=== PATIENT | male | born 1965 | race African-American/Black ===

== ENCOUNTER 2017-02-06 17:12 | Emergency (ER) | payer OTHER ==
[~2017-02-06] VITALS: Ht 177.8 cm; Wt 165.6 kg
[~2017-02-06 17:12] MED LIST: FURO40TA PO; METF-370 PO
[2017-02-06 18:39] LABS: Basophils # (auto) 0 uL; Basophils % (auto) 0.5 % (0.0-2.0); CONDITION Y; Eosinophils # (auto) 0.2 uL; Eosinophils % (auto) 2.5 % (0.0-7.0); Hematocrit 42.4 % (41.0-53.0); Hemoglobin 13.8 g/dL (13.5-17.5); Lymphocytes # (auto) 2.3 uL; Lymphocytes % (auto) 28.5 % (10.0-50.0); Mean Corpuscular Hemoglobin 28.5 pg (28.0-32.0); Mean Corpuscular Hgb Conc. 32.5 g/dL (32.0-36.0); Mean Corpuscular Volume 87.5 fL (80.0-100.0); Mean Platelet Volume 9.8 fL (7.4-10.4); Monocytes # (auto) 0.7 uL; Monocytes % (auto) 8.5 % (0.0-12.0); Neutrophils # (auto) 4.9 uL; Platelet Count (auto) 263 10^3/uL (140-450); Red Cell Distribution Width 16.4 % (11.6-16.0); White Blood Cell 8.1 10^3/uL (4.4-10.8)
[2017-02-06 19:08] LABS: Albumin 3.3 g/dL (3.4-5.0); BUN/Creatinine Ratio 13.2; Bilirubin, Total 0.4 mg/dL (0.2-1.0); Calcium 8.7 mg/dL (8.5-10.1); Potassium 3.9 mmol/L (3.5-5.1); Total Protein 7.5 g/dL (6.4-8.2)
[2017-02-06 22:03] LABS: Urine Bilirubin Negative (Negative); Urine Blood TRACE /uL (Negative); Urine Color Yellow (Yellow); Urine Glucose Normal (Normal); Urine Ketone Negative (Negative); Urine Mucus FEW (None Seen); Urine Nitrite Negative (Negative); Urine RBC 1 /hpf (0 - 3); Urine Urobilinogen Normal (Negative); Urine pH 5.5 (5.0-8.0)
[2017-02-07] MEDS ORDERED: cloNIDine HCL 0.1 MG TAB PO ONE (00:30)
[2017-02-07] MEDS ORDERED: ASPirin 81 mg TAB PO ONE (03:30)
[2017-02-07 03:45] VITALS: BP 148/79
[2017-02-07 04:10] LABS: B-Type Natriuretic Peptide 702.03 pg/mL (0-100)
[2017-02-07 04:27] LABS: Temperature: 23.3 C (20.0-25.0)
== END 2017-02-07 04:13 | disposition left against medical advice (07) ==
LOC: ER 17:27
DX: J44.1 Chronic obstructive pulmonary disease with (acute) exacerbation (principal); R07.9 Chest pain, unspecified; I10 Essential (primary) hypertension; E11.9 Type 2 diabetes mellitus without complications; J45.909 Unspecified asthma, uncomplicated; E78.5 Hyperlipidemia, unspecified; R79.89 Other specified abnormal findings of blood chemistry; R51 Headache; R60.0 Localized edema
CPT/HCPCS: 36415; 70450; 71010; 80053; 80307; 81001; 83880; 84484; 85025; 93005

== ENCOUNTER 2017-07-03 17:48 | Inpatient (IN) | payer OTHER ==
[~2017-07-03] VITALS: Ht 175.3 cm; Wt 154.8 kg
[2017-07-03 19:11] LABS: Basophils # (auto) 0.1 uL; Basophils % (auto) 1.3 % (0.0-2.0); Eosinophils # (auto) 0.2 uL; Eosinophils % (auto) 1.7 % (0.0-7.0); Hematocrit 41.1 % (41.0-53.0); Hemoglobin 13.4 g/dL (13.5-17.5); Lymphocytes # (auto) 2.1 uL; Mean Corpuscular Hemoglobin 28.4 pg (28.0-32.0); Mean Corpuscular Hgb Conc. 32.7 g/dL (32.0-36.0); Mean Corpuscular Volume 87.1 fL (80.0-100.0); Monocytes # (auto) 0.8 uL; Monocytes % (auto) 7.5 % (0.0-12.0); Neutrophils # (auto) 7.6 uL; Neutrophils % (auto) 70.5 % (37.0-80.0); Platelet Count (auto) 243 10^3/uL (140-450); Red Blood Cells 4.72 10^6/uL (4.5-5.90); Red Cell Distribution Width 15.8 % (11.8-14.3); White Blood Cell 10.8 10^3/uL (4.4-10.8)
[2017-07-03 19:27] LABS: Albumin 3.4 g/dL (3.4-5.0); Calcium 8.9 mg/dL (8.5-10.1)
[2017-07-03 19:34] LABS: BUN/Creatinine Ratio 12.9; Bilirubin, Total 0.8 mg/dL (0.2-1.0); Total Protein 7.8 g/dL (6.4-8.2)
[2017-07-03 19:43] LABS: Potassium 3.5 mmol/L (3.5-5.1)
[2017-07-03] MEDS ORDERED: ALBUTEROL SULF 2.5 MG/0.5ML(0.5%) NEB SOLN HHN ONE (22:00)
[2017-07-03] MEDS ORDERED: IPRATROPIUM BROM 0.5 MG/2.5ML INH SOL HHN ONE (22:00)
[2017-07-04] MEDS ORDERED: cloNIDine HCL 0.1 MG TAB PO ONE (00:45)
[2017-07-04] MEDS ORDERED: FUROSEMIDE 20 MG/2 ML VIAL IV ONE (01:15)
[2017-07-04] MEDS ORDERED: HYDROcodone-ACET 5/325MG TAB PO PRN (04:45)
[2017-07-04] MEDS ORDERED: NITROGLYCERIN 0.4 MG SL TAB SL PRN (04:45)
[2017-07-04] MEDS ORDERED: MORPHINE SULF INJ 2 MG/ML SYRINGE 1ML IV PRN (04:45)
[2017-07-04] MEDS ORDERED: ACETAMINOPHEN 500 MG TAB PO PRN (04:45)
[2017-07-04] MEDS ORDERED: ONDANSETRON HCL 4 MG/2 ML VIAL IV PRN (04:45)
[2017-07-04] MEDS ORDERED: DEXTROSE (50%) 50ML SYRG IV PRN (05:00)
[2017-07-04 05:55] LABS: Basophils # (auto) 0.1 uL; Basophils % (auto) 0.7 % (0.0-2.0); Eosinophils # (auto) 0.2 uL; Eosinophils % (auto) 2.7 % (0.0-7.0); Hematocrit 39.6 % (41.0-53.0); Lymphocytes # (auto) 1.6 uL; Mean Corpuscular Hemoglobin 28.9 pg (28.0-32.0); Mean Corpuscular Hgb Conc. 32.9 g/dL (32.0-36.0); Mean Corpuscular Volume 87.6 fL (80.0-100.0); Monocytes # (auto) 0.9 uL; Monocytes % (auto) 10.5 % (0.0-12.0); Neutrophils # (auto) 5.4 uL; Neutrophils % (auto) 66.1 % (37.0-80.0); Nucleated Red Blood Cells % 0.1 %; Platelet Count (auto) 217 10^3/uL (140-450); Red Blood Cells 4.52 10^6/uL (4.5-5.90); Red Cell Distribution Width 15.3 % (11.8-14.3); White Blood Cell 8.1 10^3/uL (4.4-10.8)
[2017-07-04 06:20] LABS: Calcium 8.6 mg/dL (8.5-10.1); Potassium 3.3 mmol/L (3.5-5.1)
[2017-07-04 06:37] LABS: Cholesterol 149 mg/dL (< 200); HDL Cholesterol 32 mg/dL (40-59); LDL Cholesterol 114 mg/dL (< 100); Triglycerides 57 mg/dL (< 150)
[2017-07-04] MEDS: InsuLIN REG 1unit/0.01ml Soln (100units/ml) SC SCH ×4 (07:14→22:04)
[2017-07-04] MEDS: ACCU-CHEK COMFORT CURVE STRIP VI SCH ×4 (07:14→22:04)
[2017-07-04] MEDS ORDERED: METOPROLOL TARTRATE 50 MG TAB PO SCH (10:00)
[2017-07-04] MEDS ORDERED: FUROSEMIDE 40 MG/4 ML VIAL IV SCH (10:00)
[2017-07-04] MEDS: ASPirin-EC 81 mg tab PO SCH (10:23)
[2017-07-04] MEDS ORDERED: cefTRIAXone 1GM/10ml IVPUSH 10 ML IV ONE (10:30)
[2017-07-04] MEDS ORDERED: OPTISON 3ml Vial for INJ IV ONE (10:55)
[2017-07-04] MEDS: POTASSIUM CHL 20 Meq TABLET PO SCH ×2 (11:53→22:02)
[2017-07-04] MEDS ORDERED: POTASSIUM CHL 20 Meq TABLET PO ONE (12:30)
[2017-07-04] MEDS: CARVEDILOL 3.125 MG TAB PO SCH ×2 (14:47→22:03)
[2017-07-04] MEDS ORDERED: FUROSEMIDE 40 MG/4 ML VIAL IV ONE (16:00)
[2017-07-04 22:00] VITALS: BP 138/91
[2017-07-04] MEDS ORDERED: ATORVASTATIN 20 MG TAB PO SCH (22:00)
[2017-07-04] MEDS: ATORVASTATIN 20 MG TAB PO SCH (22:03)
[2017-07-04 23:30] VITALS: BP 138/91
[2017-07-05 04:20] VITALS: BP 143/100
[2017-07-05 05:00] VITALS: BP 132/99
[2017-07-05] MEDS: FUROSEMIDE 40 MG/4 ML VIAL IV SCH ×2 (06:04→17:40)
[2017-07-05] MEDS: ACCU-CHEK COMFORT CURVE STRIP VI SCH ×4 (06:15→21:50)
[2017-07-05] MEDS: InsuLIN REG 1unit/0.01ml Soln (100units/ml) SC SCH ×4 (06:15→21:50)
[2017-07-05 06:18] LABS: Basophils # (auto) 0.1 uL; Basophils % (auto) 0.9 % (0.0-2.0); Eosinophils # (auto) 0.3 uL; Eosinophils % (auto) 3.7 % (0.0-7.0); Hematocrit 40.4 % (41.0-53.0); Hemoglobin 13.1 g/dL (13.5-17.5); Lymphocytes # (auto) 1.8 uL; Lymphocytes % (auto) 25.8 % (10.0-50.0); Mean Corpuscular Hemoglobin 28.6 pg (28.0-32.0); Mean Corpuscular Hgb Conc. 32.5 g/dL (32.0-36.0); Mean Corpuscular Volume 87.9 fL (80.0-100.0); Monocytes # (auto) 0.8 uL; Monocytes % (auto) 11.9 % (0.0-12.0); Neutrophils % (auto) 57.7 % (37.0-80.0); Platelet Count (auto) 219 10^3/uL (140-450); Red Cell Distribution Width 15.8 % (11.8-14.3); White Blood Cell 6.9 10^3/uL (4.4-10.8)
[2017-07-05 06:48] LABS: Albumin 3.2 g/dL (3.4-5.0); BUN/Creatinine Ratio 16.3; Bilirubin, Total 0.8 mg/dL (0.2-1.0); Calcium 8.4 mg/dL (8.5-10.1); Potassium 3.8 mmol/L (3.5-5.1); Total Protein 7.3 g/dL (6.4-8.2)
[2017-07-05] MEDS: cefTRIAXone 1GM/10ml IVPUSH 10 ML IV SCH (08:30)
[2017-07-05 09:00] VITALS: BP 151/86
[2017-07-05] MEDS: CARVEDILOL 3.125 MG TAB PO SCH ×2 (09:48→21:49)
[2017-07-05] MEDS: POTASSIUM CHL 20 Meq TABLET PO SCH ×2 (09:48→21:48)
[2017-07-05] MEDS: SPIRONOLACTONE 25 MG TAB PO SCH (09:48)
[2017-07-05] MEDS: ENALAPRIL MALEATE 2.5 MG TAB PO SCH (09:49)
[2017-07-05] MEDS: ASPirin-EC 81 mg tab PO SCH (09:49)
[2017-07-05 13:00] VITALS: BP 160/98
[2017-07-05 17:00] VITALS: BP 168/89
[2017-07-05 20:52] LABS: Urine WBC None Seen /hpf (0 - 3)
[2017-07-05 21:00] LABS: Urine Bacteria NONE SEEN /hpf (None Seen); Urine Blood Negative /uL (Negative); Urine Specific Gravity 1.008 (1.001-1.035)
[2017-07-05] MEDS: ATORVASTATIN 20 MG TAB PO SCH (21:50)
[2017-07-05 22:00] VITALS: BP 150/100
[2017-07-06 05:00] VITALS: BP 150/80
[2017-07-06] MEDS: FUROSEMIDE 40 MG/4 ML VIAL IV SCH (05:35)
[2017-07-06 06:35] LABS: BUN/Creatinine Ratio 18.8; Calcium 9.2 mg/dL (8.5-10.1); Potassium 3.8 mmol/L (3.5-5.1)
[2017-07-06] MEDS: ACCU-CHEK COMFORT CURVE STRIP VI SCH ×2 (06:40→11:30)
[2017-07-06] MEDS: InsuLIN REG 1unit/0.01ml Soln (100units/ml) SC SCH ×2 (06:40→11:30)
[2017-07-06] MEDS: cefTRIAXone 1GM/10ml IVPUSH 10 ML IV SCH (08:50)
[2017-07-06 09:00] VITALS: BP 156/102
[2017-07-06] MEDS: CARVEDILOL 3.125 MG TAB PO SCH (10:00)
[2017-07-06] MEDS: POTASSIUM CHL 20 Meq TABLET PO SCH (10:00)
[2017-07-06] MEDS: ASPirin-EC 81 mg tab PO SCH (10:00)
[2017-07-06] MEDS: ENALAPRIL MALEATE 2.5 MG TAB PO SCH (10:00)
[2017-07-06] MEDS: SPIRONOLACTONE 25 MG TAB PO SCH (10:00)
[2017-07-06 10:46] VITALS: BP 145/96
== END 2017-07-06 11:05 | disposition home or self-care (01) | DRG 199 ==
LOC: ER 17:48 → TELE 17:49 → TELE-WESTW 07-04 07:58
PROVIDERS: ADMIT Nurse Practitioner Family; ATTEND Internal Medicine
PROC: 5A09357 Assistance with Respiratory Ventilation, Less than 24 Consecutive Hours, Continuous Positive Airway Pressure (ICD-10-PCS; principal; 2017-07-04)
PROC: 5A09357 Assistance with Respiratory Ventilation, Less than 24 Consecutive Hours, Continuous Positive Airway Pressure (ICD-10-PCS; 2017-07-05)
PROC: 5A09357 Assistance with Respiratory Ventilation, Less than 24 Consecutive Hours, Continuous Positive Airway Pressure (ICD-10-PCS; 2017-07-06)
DX: I16.9 Hypertensive crisis, unspecified (principal); I21.A1 Myocardial infarction type 2; I50.43 Acute on chronic combined systolic (congestive) and diastolic (congestive) heart failure; E44.0 Moderate protein-calorie malnutrition; E11.65 Type 2 diabetes mellitus with hyperglycemia; I27.20 Pulmonary hypertension, unspecified; Z68.43 Body mass index [BMI] 50.0-59.9, adult; J44.1 Chronic obstructive pulmonary disease with (acute) exacerbation; I11.0 Hypertensive heart disease with heart failure; E78.00 Pure hypercholesterolemia, unspecified; E66.01 Morbid (severe) obesity due to excess calories; E78.5 Hyperlipidemia, unspecified; G47.33 Obstructive sleep apnea (adult) (pediatric); Z91.11 Patient's noncompliance with dietary regimen; Z79.899 Other long term (current) drug therapy; Z79.84 Long term (current) use of oral hypoglycemic drugs; Z80.0 Family history of malignant neoplasm of digestive organs; Z82.49 Family history of ischemic heart disease and other diseases of the circulatory system; Z83.3 Family history of diabetes mellitus
CPT/HCPCS: 36415; 71046; 80048; 80053; 80061; 81001; 82962; 83036; 83880; 84443; 84484; 85025; 93005; 93306; 94640; 94660; 96374; J1815; Q9956

== ENCOUNTER 2017-07-24 16:30 | Inpatient (IN) | payer OTHER ==
[~2017-07-24] VITALS: Ht 175.3 cm; Wt 117.9 kg
[2017-07-24 17:49] LABS: Basophils # (auto) 0.1 uL; Basophils % (auto) 0.9 % (0.0-2.0); Eosinophils # (auto) 0.2 uL; Eosinophils % (auto) 2.4 % (0.0-7.0); Hematocrit 39.4 % (41.0-53.0); Hemoglobin 12.7 g/dL (13.5-17.5); Lymphocytes % (auto) 22.6 % (10.0-50.0); Mean Corpuscular Hemoglobin 28.2 pg (28.0-32.0); Mean Corpuscular Hgb Conc. 32.3 g/dL (32.0-36.0); Mean Corpuscular Volume 87.4 fL (80.0-100.0); Monocytes # (auto) 0.7 uL; Monocytes % (auto) 8.5 % (0.0-12.0); Neutrophils # (auto) 5.8 uL; Neutrophils % (auto) 65.6 % (37.0-80.0); Nucleated Red Blood Cells % 0.2 %; Platelet Count (auto) 220 10^3/uL (140-450); Red Blood Cells 4.51 10^6/uL (4.5-5.90); Red Cell Distribution Width 15.6 % (11.8-14.3); White Blood Cell 8.8 10^3/uL (4.4-10.8)
[2017-07-24 18:09] LABS: Albumin 3.2 g/dL (3.4-5.0); BUN/Creatinine Ratio 11.1; Bilirubin, Total 0.8 mg/dL (0.2-1.0); Calcium 8.5 mg/dL (8.5-10.1); Potassium 3.5 mmol/L (3.5-5.1); Total Protein 7.4 g/dL (6.4-8.2)
[2017-07-24] MEDS ORDERED: FUROSEMIDE 40 MG/4 ML VIAL IV ONE (19:15)
[2017-07-24] MEDS ORDERED: DEXTROSE (50%) 50ML SYRG IV PRN (20:30)
[2017-07-24] MEDS ORDERED: ALBUTEROL SULF 2.5 MG/0.5ML(0.5%) NEB SOLN NEB PRN (20:30)
[2017-07-24] MEDS ORDERED: HYDROcodone-ACET 5/325MG TAB PO PRN (20:30)
[2017-07-24] MEDS ORDERED: ACETAMINOPHEN 500 MG TAB PO PRN (20:30)
[2017-07-24] MEDS ORDERED: ONDANSETRON HCL 4 MG/2 ML VIAL IV PRN (20:30)
[2017-07-24] MEDS ORDERED: LABETALOL HCL 5 MG/ML ML 20ML VIAL IV PRN (21:00)
[2017-07-24 21:23] VITALS: BP 214/137
[2017-07-24] MEDS: CARVEDILOL 3.125 MG TAB PO SCH (21:46)
[2017-07-24] MEDS: ATORVASTATIN 20 MG TAB PO SCH (21:46)
[2017-07-24] MEDS: ACCU-CHEK COMFORT CURVE STRIP VI SCH (21:56)
[2017-07-24] MEDS: InsuLIN REG 1unit/0.01ml Soln (100units/ml) SC SCH (21:56)
[2017-07-25] VITALS (8 sets, daily range): BP systolic 124–175; BP diastolic 79–117
[2017-07-25] MEDS: ACCU-CHEK COMFORT CURVE STRIP VI SCH ×4 (06:20→22:13)
[2017-07-25] MEDS: InsuLIN REG 1unit/0.01ml Soln (100units/ml) SC SCH ×4 (06:21→22:25)
[2017-07-25] MEDS: FUROSEMIDE 40 MG/4 ML VIAL IV SCH ×2 (06:21→18:46)
[2017-07-25 06:28] LABS: Basophils # (auto) 0.1 uL; Basophils % (auto) 1.3 % (0.0-2.0); Eosinophils # (auto) 0.3 uL; Eosinophils % (auto) 3.6 % (0.0-7.0); Hematocrit 38.7 % (41.0-53.0); Hemoglobin 12.9 g/dL (13.5-17.5); Lymphocytes # (auto) 2.3 uL; Lymphocytes % (auto) 28.7 % (10.0-50.0); Mean Corpuscular Hemoglobin 28.9 pg (28.0-32.0); Mean Corpuscular Hgb Conc. 33.3 g/dL (32.0-36.0); Mean Corpuscular Volume 86.7 fL (80.0-100.0); Monocytes # (auto) 0.7 uL; Monocytes % (auto) 8.5 % (0.0-12.0); Neutrophils # (auto) 4.7 uL; Neutrophils % (auto) 57.9 % (37.0-80.0); Nucleated Red Blood Cells % 0.1 %; Platelet Count (auto) 200 10^3/uL (140-450); Red Blood Cells 4.46 10^6/uL (4.5-5.90); Red Cell Distribution Width 15.2 % (11.8-14.3); White Blood Cell 8.1 10^3/uL (4.4-10.8)
[2017-07-25 06:48] LABS: BUN/Creatinine Ratio 13.3; Calcium 8.8 mg/dL (8.5-10.1); Potassium 3.5 mmol/L (3.5-5.1)
[2017-07-25] MEDS: SPIRONOLACTONE 25 MG TAB PO SCH (09:35)
[2017-07-25] MEDS: ASPirin-EC 81 mg tab PO SCH (09:35)
[2017-07-25] MEDS: CARVEDILOL 3.125 MG TAB PO SCH (09:36)
[2017-07-25] MEDS ORDERED: FUROSEMIDE 40 MG/4 ML VIAL IV SCH (10:00)
[2017-07-25] MEDS ORDERED: cloNIDine HCL 0.1 MG TAB PO PRN (18:45)
[2017-07-25] MEDS: ATORVASTATIN 20 MG TAB PO SCH (22:11)
[2017-07-25] MEDS: ENALAPRIL MALEATE 2.5 MG TAB PO SCH (22:11)
[2017-07-25] MEDS: CARVEDILOL 12.5 MG TAB PO SCH (22:13)
[2017-07-26 04:48] VITALS: BP 143/78
[2017-07-26] MEDS: ACCU-CHEK COMFORT CURVE STRIP VI SCH (06:15)
[2017-07-26] MEDS: FUROSEMIDE 40 MG/4 ML VIAL IV SCH (06:27)
[2017-07-26] MEDS: InsuLIN REG 1unit/0.01ml Soln (100units/ml) SC SCH (06:28)
[2017-07-26 07:05] LABS: BUN/Creatinine Ratio 15.2; Calcium 8.9 mg/dL (8.5-10.1); Potassium 3.9 mmol/L (3.5-5.1)
[2017-07-26 07:30] VITALS: BP 143/78
[2017-07-26 08:00] VITALS: BP 143/91
[2017-07-26] MEDS: ASPirin-EC 81 mg tab PO SCH (09:23)
[2017-07-26] MEDS: SPIRONOLACTONE 25 MG TAB PO SCH (09:23)
[2017-07-26] MEDS: ENALAPRIL MALEATE 2.5 MG TAB PO SCH (09:23)
[2017-07-26] MEDS: CARVEDILOL 12.5 MG TAB PO SCH (09:23)
[2017-07-26] MEDS ORDERED: CAR125T PO (09:32)
[2017-07-26] MEDS ORDERED: ENA2.5T PO (09:32)
[2017-07-26] MEDS ORDERED: ASP81EC PO (09:32)
[2017-07-26] MEDS ORDERED: SPIR25TA88 PO (09:32)
[2017-07-26] MEDS ORDERED: ATOR20TA50 PO (09:32)
== END 2017-07-26 12:32 | disposition home or self-care (01) | DRG 194 ==
LOC: ER 16:30 → TELE 16:31 → TELE-CENTR 23:09
PROVIDERS: ADMIT Nurse Practitioner Family; ATTEND Internal Medicine
DX: I13.0 Hypertensive heart and chronic kidney disease with heart failure and stage 1 through stage 4 chronic kidney disease, or unspecified chronic kidney disease (principal); E11.21 Type 2 diabetes mellitus with diabetic nephropathy; I42.9 Cardiomyopathy, unspecified; E11.22 Type 2 diabetes mellitus with diabetic chronic kidney disease; I50.43 Acute on chronic combined systolic (congestive) and diastolic (congestive) heart failure; E66.01 Morbid (severe) obesity due to excess calories; N18.3 Chronic kidney disease, stage 3 (moderate); E78.5 Hyperlipidemia, unspecified; J44.9 Chronic obstructive pulmonary disease, unspecified; I48.91 Unspecified atrial fibrillation; Z79.4 Long term (current) use of insulin; Z82.49 Family history of ischemic heart disease and other diseases of the circulatory system; Z83.3 Family history of diabetes mellitus; Z85.038 Personal history of other malignant neoplasm of large intestine; Z91.19 Patient's noncompliance with other medical treatment and regimen; Z68.38 Body mass index [BMI] 38.0-38.9, adult
CPT/HCPCS: 36415; 71046; 80048; 80053; 82962; 83605; 83880; 84484; 85025; 87040; 87081; 87400; 93005; 94761; 96374; J1815

== ENCOUNTER 2017-10-04 23:20 | Inpatient (IN) | payer OTHER ==
[~2017-10-04] VITALS: Ht 185.4 cm; Wt 156.9 kg
[~2017-10-04 23:20] MED LIST changes: +ASP81EC PO; +ATOR20TA50 PO; +CAR125T PO; +ENA2.5T PO; +SPIR25TA88 PO
[2017-10-05] MEDS ORDERED: NITROGLYCERIN 50MG/250ML 250 ML IV SCH (01:23)
[2017-10-05] MEDS ORDERED: LORazepam 0.5 MG TAB PO ONE (01:30)
[2017-10-05] MEDS ORDERED: MORPHINE SULFATE 8mg/ml INJ SDV IV ONE (01:30)
[2017-10-05] MEDS ORDERED: FUROSEMIDE 40 MG/4 ML VIAL IV ONE (01:30)
[2017-10-05] MEDS ORDERED: ASPirin 81 mg TAB PO ONE (01:30)
[2017-10-05] MEDS ORDERED: ONDANSETRON HCL 4 MG/2 ML VIAL IV ONE (01:30)
[2017-10-05 02:05] LABS: Basophils # (auto) 0.1 uL; Basophils % (auto) 0.7 % (0.0-2.0); Eosinophils # (auto) 0.2 uL; Eosinophils % (auto) 1.8 % (0.0-7.0); Hematocrit 38.7 % (41.0-53.0); Hemoglobin 12.6 g/dL (13.5-17.5); Lymphocytes # (auto) 2.8 uL; Mean Corpuscular Hemoglobin 28.5 pg (28.0-32.0); Mean Corpuscular Hgb Conc. 32.5 g/dL (32.0-36.0); Mean Corpuscular Volume 87.5 fL (80.0-100.0); Monocytes # (auto) 0.8 uL; Monocytes % (auto) 8.8 % (0.0-12.0); Neutrophils # (auto) 4.9 uL; Neutrophils % (auto) 56.7 % (37.0-80.0); Nucleated Red Blood Cells % 0.1 %; Platelet Count (auto) 240 10^3/uL (140-450); Red Blood Cells 4.42 10^6/uL (4.5-5.90); Red Cell Distribution Width 16.5 % (11.8-14.3); White Blood Cell 8.7 10^3/uL (4.4-10.8)
[2017-10-05 02:16] LABS: INR 1.1 (0.9-1.15); Partial Thromboplastin Time 25.2 sec (22.64-33.71)
[2017-10-05 02:21] LABS: Albumin 3.2 g/dL (3.4-5.0); BUN/Creatinine Ratio 14.5; Calcium 8.5 mg/dL (8.5-10.1); Magnesium 2.3 mg/dL (1.6-2.6); Potassium 4.1 mmol/L (3.5-5.1)
[2017-10-05] MEDS ORDERED: ENALAPRILAT 1.25 MG/ML-1ML VIAL IV ONE (03:45)
[2017-10-05] MEDS ORDERED: NITROGLYCERIN 0.4 MG SL TAB SL PRN (04:30)
[2017-10-05] MEDS ORDERED: MORPHINE SULFATE 8mg/ml INJ SDV IV PRN (04:30)
[2017-10-05] MEDS ORDERED: DEXTROSE (50%) 50ML SYRG IV PRN (04:30)
[2017-10-05] MEDS ORDERED: FUROSEMIDE 40 MG/4 ML VIAL IV SCH (06:00)
[2017-10-05] MEDS: ACCU-CHEK COMFORT CURVE STRIP VI SCH ×4 (06:40→22:07)
[2017-10-05] MEDS: InsuLIN REG 1unit/0.01ml Soln (100units/ml) SC SCH ×4 (06:44→22:00)
[2017-10-05] MEDS ORDERED: POTASSIUM CHL 20 Meq TABLET PO ONE (10:00)
[2017-10-05] MEDS ORDERED: ENALAPRIL MALEATE 2.5 MG TAB PO SCH (10:00)
[2017-10-05] MEDS ORDERED: FUROSEMIDE 100 MG/10ML VIAL IV ONE (10:00)
[2017-10-05] MEDS: CARVEDILOL 12.5 MG TAB PO SCH ×2 (11:38→21:46)
[2017-10-05] MEDS: ASPirin-EC 81 mg tab PO SCH (11:39)
[2017-10-05] MEDS: SPIRONOLACTONE 25 MG TAB PO SCH (11:51)
[2017-10-05] MEDS: LABETALOL HCL 5 MG/ML ML 20ML VIAL IV PRN (17:32)
[2017-10-05 19:12] VITALS: BP 146/83
[2017-10-05] MEDS: FUROSEMIDE 40 MG/4 ML VIAL IV SCH (19:30)
[2017-10-05 20:00] VITALS: BP 138/97
[2017-10-05 22:00] VITALS: BP 138/97
[2017-10-05] MEDS: ATORVASTATIN 20 MG TAB PO SCH (22:06)
[2017-10-06] VITALS (7 sets, daily range): BP systolic 140–162; BP diastolic 64–100
[2017-10-06] MEDS: FUROSEMIDE 40 MG/4 ML VIAL IV SCH ×2 (06:00→17:58)
[2017-10-06] MEDS: InsuLIN REG 1unit/0.01ml Soln (100units/ml) SC SCH ×4 (06:34→22:00)
[2017-10-06] MEDS: ACCU-CHEK COMFORT CURVE STRIP VI SCH ×4 (06:34→22:12)
[2017-10-06 07:40] LABS: Albumin 3.2 g/dL (3.4-5.0); BUN/Creatinine Ratio 13.7; Calcium 8.8 mg/dL (8.5-10.1); Potassium 3.5 mmol/L (3.5-5.1); Total Protein 7.4 g/dL (6.4-8.2)
[2017-10-06 07:46] LABS: Basophils # (auto) 0 uL; Basophils % (auto) 0.6 % (0.0-2.0); Eosinophils # (auto) 0.2 uL; Hematocrit 38.5 % (41.0-53.0); Hemoglobin 12.6 g/dL (13.5-17.5); Lymphocytes % (auto) 27.8 % (10.0-50.0); Mean Corpuscular Hemoglobin 28.4 pg (28.0-32.0); Mean Corpuscular Hgb Conc. 32.7 g/dL (32.0-36.0); Mean Corpuscular Volume 86.7 fL (80.0-100.0); Monocytes # (auto) 0.6 uL; Monocytes % (auto) 8.8 % (0.0-12.0); Neutrophils # (auto) 4.3 uL; Neutrophils % (auto) 59.8 % (37.0-80.0); Nucleated Red Blood Cells % 0.1 %; Platelet Count (auto) 220 10^3/uL (140-450); Red Blood Cells 4.45 10^6/uL (4.5-5.90); Red Cell Distribution Width 16.5 % (11.8-14.3); White Blood Cell 7.2 10^3/uL (4.4-10.8)
[2017-10-06] MEDS: ENALAPRIL MALEATE 2.5 MG TAB PO SCH ×3 (09:37→21:53)
[2017-10-06] MEDS: CARVEDILOL 12.5 MG TAB PO SCH ×4 (09:37→22:13)
[2017-10-06] MEDS: ATORVASTATIN 20 MG TAB PO SCH ×2 (09:44→22:14)
[2017-10-06] MEDS: SPIRONOLACTONE 25 MG TAB PO SCH (09:47)
[2017-10-06] MEDS: ASPirin-EC 81 mg tab PO SCH (09:47)
[2017-10-07 05:00] VITALS: BP 147/94
[2017-10-07] MEDS: FUROSEMIDE 40 MG/4 ML VIAL IV SCH ×2 (05:38→17:33)
[2017-10-07 06:00] LABS: Albumin 3.1 g/dL (3.4-5.0); Bilirubin, Total 0.7 mg/dL (0.2-1.0); Calcium 8.9 mg/dL (8.5-10.1); Potassium 3.6 mmol/L (3.5-5.1); Total Protein 7.1 g/dL (6.4-8.2)
[2017-10-07] MEDS: ACCU-CHEK COMFORT CURVE STRIP VI SCH ×4 (08:30→21:38)
[2017-10-07] MEDS: InsuLIN REG 1unit/0.01ml Soln (100units/ml) SC SCH ×4 (08:31→21:38)
[2017-10-07 09:00] VITALS: BP 139/90
[2017-10-07] MEDS: ASPirin-EC 81 mg tab PO SCH (10:23)
[2017-10-07] MEDS: SPIRONOLACTONE 25 MG TAB PO SCH (10:23)
[2017-10-07] MEDS: ENALAPRIL MALEATE 2.5 MG TAB PO SCH ×2 (10:23→21:50)
[2017-10-07 13:00] VITALS: BP 146/93
[2017-10-07] MEDS: LABETALOL HCL 5 MG/ML ML 20ML VIAL IV PRN (16:42)
[2017-10-07 17:00] VITALS: BP 179/114
[2017-10-07] MEDS: CARVEDILOL 12.5 MG TAB PO SCH (21:49)
[2017-10-07] MEDS: cloNIDine HCL 0.1 MG TAB PO SCH (21:51)
[2017-10-07] MEDS: ATORVASTATIN 20 MG TAB PO SCH (21:52)
[2017-10-07 22:00] VITALS: BP 128/81
[2017-10-08 05:00] VITALS: BP 120/72
[2017-10-08] MEDS: FUROSEMIDE 40 MG/4 ML VIAL IV SCH (06:34)
[2017-10-08] MEDS: ACCU-CHEK COMFORT CURVE STRIP VI SCH (06:35)
[2017-10-08 06:49] LABS: Basophils # (auto) 0.1 uL; Basophils % (auto) 0.7 % (0.0-2.0); Eosinophils # (auto) 0.2 uL; Eosinophils % (auto) 2.7 % (0.0-7.0); Hematocrit 38.2 % (41.0-53.0); Hemoglobin 12.5 g/dL (13.5-17.5); Lymphocytes # (auto) 2.2 uL; Lymphocytes % (auto) 28.6 % (10.0-50.0); Mean Corpuscular Hemoglobin 28.4 pg (28.0-32.0); Mean Corpuscular Hgb Conc. 32.6 g/dL (32.0-36.0); Mean Corpuscular Volume 86.9 fL (80.0-100.0); Monocytes % (auto) 13.3 % (0.0-12.0); Neutrophils # (auto) 4.3 uL; Neutrophils % (auto) 54.7 % (37.0-80.0); Platelet Count (auto) 225 10^3/uL (140-450); Red Cell Distribution Width 15.9 % (11.8-14.3); White Blood Cell 7.9 10^3/uL (4.4-10.8)
[2017-10-08] MEDS: InsuLIN REG 1unit/0.01ml Soln (100units/ml) SC SCH (07:00)
[2017-10-08 07:20] LABS: BUN/Creatinine Ratio 16.9; Calcium 8.7 mg/dL (8.5-10.1); Potassium 3.5 mmol/L (3.5-5.1)
[2017-10-08 07:23] LABS: Bilirubin, Total 0.6 mg/dL (0.2-1.0); Total Protein 6.8 g/dL (6.4-8.2)
[2017-10-08 09:00] VITALS: BP 147/83
[2017-10-08] MEDS: SPIRONOLACTONE 25 MG TAB PO SCH (09:41)
[2017-10-08] MEDS: cloNIDine HCL 0.1 MG TAB PO SCH (09:42)
[2017-10-08] MEDS: ASPirin-EC 81 mg tab PO SCH (09:42)
[2017-10-08] MEDS: CARVEDILOL 12.5 MG TAB PO SCH (09:42)
[2017-10-08] MEDS: ENALAPRIL MALEATE 2.5 MG TAB PO SCH (09:43)
[2017-10-08] MEDS ORDERED: amLODIPine BESYLATE 5 MG TAB PO SCH (10:00)
== END 2017-10-08 11:30 | disposition home or self-care (01) | DRG 199 ==
LOC: ER 23:20 → EDBD 23:20 → OVERFLOW 23:21 → TELE-EAST 10-05 17:51
PROVIDERS: ADMIT Nurse Practitioner Family; ATTEND Internal Medicine
PROC: 5A09357 Assistance with Respiratory Ventilation, Less than 24 Consecutive Hours, Continuous Positive Airway Pressure (ICD-10-PCS; principal; 2017-10-05)
PROC: 5A09357 Assistance with Respiratory Ventilation, Less than 24 Consecutive Hours, Continuous Positive Airway Pressure (ICD-10-PCS; 2017-10-06)
PROC: 5A09357 Assistance with Respiratory Ventilation, Less than 24 Consecutive Hours, Continuous Positive Airway Pressure (ICD-10-PCS; 2017-10-07)
DX: I16.1 Hypertensive emergency (principal); I21.A1 Myocardial infarction type 2; I50.43 Acute on chronic combined systolic (congestive) and diastolic (congestive) heart failure; E44.0 Moderate protein-calorie malnutrition; Z68.42 Body mass index [BMI] 45.0-49.9, adult; I42.9 Cardiomyopathy, unspecified; E11.22 Type 2 diabetes mellitus with diabetic chronic kidney disease; E66.01 Morbid (severe) obesity due to excess calories; I13.0 Hypertensive heart and chronic kidney disease with heart failure and stage 1 through stage 4 chronic kidney disease, or unspecified chronic kidney disease; E78.5 Hyperlipidemia, unspecified; G47.33 Obstructive sleep apnea (adult) (pediatric); J45.909 Unspecified asthma, uncomplicated; N18.3 Chronic kidney disease, stage 3 (moderate); Z79.899 Other long term (current) drug therapy; Z80.0 Family history of malignant neoplasm of digestive organs; Z82.49 Family history of ischemic heart disease and other diseases of the circulatory system; Z83.3 Family history of diabetes mellitus; Z91.19 Patient's noncompliance with other medical treatment and regimen; Z79.84 Long term (current) use of oral hypoglycemic drugs
CPT/HCPCS: 36415; 71045; 71046; 80053; 82962; 83735; 83880; 84484; 85025; 85610; 85730; 93005; 94660; 96374; 96375; 96376; 99291; G0378; J1815; J2270

== ENCOUNTER 2019-04-08 09:10 | Inpatient (IN) | payer OTHER ==
[~2019-04-08] VITALS: Ht 205.7 cm; Wt 163.9 kg
[~2019-04-08 09:10] MED LIST changes: +BACL10TA PO; +CLON0.1T PO; -ENA2.5T PO; +ENAL2.5T2 PO; +FURO1TAB31 PO; -FURO40TA PO; +NIFE30TA76 PO; +POTA-220 PO; -SPIR25TA88 PO
[2019-04-08 09:47] LABS: Urine Bacteria NONE SEEN /hpf (None Seen); Urine Blood 3+ /uL (Negative); Urine Mucus FEW (None Seen); Urine WBC 1450 /hpf (0 - 3); Urine WBC Clumps PRESENT /hpf (None Seen)
[2019-04-08 09:53] LABS: Urine Specific Gravity 1.017 (1.001-1.035)
[2019-04-08] MEDS ORDERED: KETOROLAC TROMETH 30 MG/ML 1ML VIAL IV ONE (10:00)
[2019-04-08 10:32] LABS: Albumin 3.3 g/dL (3.4-5.0); BUN/Creatinine Ratio 10.4; Bilirubin, Total 1.2 mg/dL (0.2-1.0); Calcium 8.6 mg/dL (8.5-10.1); Potassium 4.9 mmol/L (3.5-5.1); Total Protein 8.2 g/dL (6.4-8.2)
[2019-04-08 11:12] LABS: Basophils # (auto) 0.1 uL; Basophils % (auto) 0.6 % (0.0-2.0); Eosinophils # (auto) 0.1 uL; Eosinophils % (auto) 0.8 % (0.0-7.0); Hematocrit 40.5 % (41.0-53.0); Hemoglobin 13.3 g/dL (13.5-17.5); Lymphocytes # (auto) 1.5 uL; Lymphocytes % (auto) 10.6 % (10.0-50.0); Mean Corpuscular Hemoglobin 28.6 pg (28.0-32.0); Mean Corpuscular Volume 86.9 fL (80.0-100.0); Monocytes # (auto) 1.4 uL; Monocytes % (auto) 10.2 % (0.0-12.0); Neutrophils # (auto) 10.7 uL; Neutrophils % (auto) 77.8 % (37.0-80.0); Nucleated Red Blood Cells % 0.1 %; Platelet Count (auto) 202 10^3/uL (140-450); Red Blood Cells 4.66 10^6/uL (4.5-5.90); Red Cell Distribution Width 14.8 % (11.8-14.3); White Blood Cell 13.7 10^3/uL (4.4-10.8)
[2019-04-08] MEDS ORDERED: SODIUM CHLORIDE 0.9% 1,000 ML IV ONE ×2 (11:53)
[2019-04-08] MEDS ORDERED: TAMSULOSIN HYDROCHLORIDE 0.4 MG CAP PO ONE (12:00)
[2019-04-08] MEDS ORDERED: cefTRIAXone 1GM/50ML D5W 50 ML IV ONE (12:00)
[2019-04-08] MEDS ORDERED: ONDANSETRON HCL 4 MG/2 ML VIAL IV PRN (13:30)
[2019-04-08] MEDS ORDERED: MORPHINE SULF INJ 2 MG/ML SYRINGE 1ML IV PRN ×2 (13:30)
[2019-04-08] MEDS ORDERED: DEXTROSE (50%) 50ML SYRG IV PRN (13:30)
[2019-04-08] MEDS ORDERED: ACETAMINOPHEN 500 MG TAB PO PRN (13:30)
[2019-04-08] MEDS ORDERED: NITROGLYCERIN 0.4 MG SL TAB SL PRN (13:30)
[2019-04-08] MEDS ORDERED: HYDROcodone-ACET 5/325MG TAB PO PRN (13:30)
[2019-04-08 13:48] LABS: INR 1.01 (0.9-1.15); Partial Thromboplastin Time 27.4 sec (23.64-32.05)
--- NOTE | 2019-04-08 14:27 | NUR ---
RECEIVED REPORT FROM JERRELL ESTRADA.
--- NOTE | 2019-04-08 15:00 | NUR ---
Telemetry admit from ER HUYNHNATE admitted to Telemetry unit after SBAR received. Patient oriented to DELILAH ALMANZAR RN primary, unit, room, bed, and unit policies regarding patient care and visiting hours. Patient now on continuous telemetry monitoring, tele box # 11 and telemetry reading on arrival to unit is SINUS RHYTHM AT 86. Patient placed on bedside oxygen, weighed by bedscale and encouraged to call if they need something. All questions and concerns addressed, patient verbalized understanding.
[2019-04-08 15:56] VITALS: BP 158/97
[2019-04-08 16:37] VITALS: BP 158/97
[2019-04-08] MEDS: SODIUM CHLORIDE 0.9% 1,000 ML IV SCH (16:42)
[2019-04-08] MEDS: ACCU-CHEK COMFORT CURVE STRIP VI SCH ×2 (17:43→21:44)
[2019-04-08] MEDS: InsuLIN REG 1unit/0.01ml Soln (100units/ml) SC SCH ×2 (17:44→21:41)
[2019-04-08] MEDS ORDERED: TAMSULOSIN HYDROCHLORIDE 0.4 MG CAP PO SCH (18:00)
--- NOTE | 2019-04-08 19:00 | NUR ---
OPENING NOTE Received report from day shift RN. Patient is A&O X's 4 and shows no s/s of distress. Patient reports no pain. Educated patient on POC and to use call light when in need of assistance and when in need to ambulate. Patient verbalized understanding. Bed is in lowest/locked position with side rails up X's 2 and call light is within reach of patient. Patient is receiving 100ml of NS via right upper arm IV. Emptied about 100ml of urine in urinal. Patient still having hematuria. Will continue care of patient and round hourly/PRN.
[2019-04-08 22:00] VITALS: BP 144/91
[2019-04-09] MEDS: SODIUM CHLORIDE 0.9% 1,000 ML IV SCH (00:25)
[2019-04-09 04:56] VITALS: BP 151/99
[2019-04-09] MEDS: InsuLIN REG 1unit/0.01ml Soln (100units/ml) SC SCH ×2 (06:20→12:50)
[2019-04-09] MEDS: ACCU-CHEK COMFORT CURVE STRIP VI SCH ×2 (06:20→11:30)
[2019-04-09 06:55] LABS: Basophils # (auto) 0 uL; Basophils % (auto) 0.3 % (0.0-2.0); Eosinophils # (auto) 0.3 uL; Eosinophils % (auto) 2.8 % (0.0-7.0); Hematocrit 38.1 % (41.0-53.0); Hemoglobin 12.8 g/dL (13.5-17.5); Lymphocytes # (auto) 1.5 uL; Lymphocytes % (auto) 16.3 % (10.0-50.0); Mean Corpuscular Hemoglobin 29.4 pg (28.0-32.0); Mean Corpuscular Hgb Conc. 33.5 g/dL (32.0-36.0); Mean Corpuscular Volume 87.6 fL (80.0-100.0); Monocytes % (auto) 11.1 % (0.0-12.0); Neutrophils # (auto) 6.2 uL; Neutrophils % (auto) 69.5 % (37.0-80.0); Platelet Count (auto) 185 10^3/uL (140-450); Red Blood Cells 4.35 10^6/uL (4.5-5.90); Red Cell Distribution Width 14.6 % (11.8-14.3); White Blood Cell 8.9 10^3/uL (4.4-10.8)
[2019-04-09 07:05] LABS: Albumin 2.8 g/dL (3.4-5.0); BUN/Creatinine Ratio 11.6; Calcium 8.4 mg/dL (8.5-10.1); Potassium 3.8 mmol/L (3.5-5.1); Total Protein 7.1 g/dL (6.4-8.2)
[2019-04-09 07:09] LABS: Bilirubin, Total 0.9 mg/dL (0.2-1.0)
--- NOTE | 2019-04-09 07:30 | NUR ---
Opening Shift Note Assumed care of patient, awake and alert. No S/S of distress/SOB or pain. Instructed on POC and to call for assist PRN, bed in locked and lowest position and call light within reach. Will continue to monitor for changes Q1hr and PRN.
[2019-04-09 09:00] VITALS: BP 152/107
[2019-04-09] MEDS ORDERED: cefTRIAXone 1GM/50ML D5W 50 ML IV SCH (09:00)
[2019-04-09] MEDS ORDERED: FAMOTIDINE 20 MG TAB PO SCH (10:00)
--- NOTE | 2019-04-09 12:20 | NUR ---
Dr. Quinn bedside with patient discussing plan of care. Per Dr. Quinn, if urology clears, patient is ok to discharge.
[2019-04-09] MEDS ORDERED: cloNIDine HCL 0.1 MG TAB PO ONE (12:30)
[2019-04-09] MEDS ORDERED: ENALAPRIL MALEATE 2.5 MG TAB PO ONE (12:30)
[2019-04-09] MEDS ORDERED: NIFEdipine ER 30 MG TAB PO SCH (12:32)
[2019-04-09 13:00] VITALS: BP 159/75
--- NOTE | 2019-04-09 14:15 | NUR ---
Patient wants to leave AMA, he does not want to wait for Dr. Gutierrez from Urology to come in. I explained to him Dr. Gutierrez will be in today, as Dr. Quinn has talked to her. He has a family emergency and will only stay for a little while longer. I talked to Dr. Quinn to make her aware, she said to have him sign the AMA form if he chooses not to wait.
--- NOTE | 2019-04-09 15:03 | NUR ---
AMA Note HUYNHNATE states he wants to leave the hospital Against Medical Advice (AMA). Patient encouraged to stay for further treatment/stabilization. I explained in detail he still requires treatment and urged him to stay. He said he understands he still has an infection and will contact his doctor. Dr. Kai SALDANA notified of patient's wishes. Patient advised of the risks and benefits of leaving AMA. Patient verbalized understanding. Patient encouraged to return to the ER if symptoms do not improve or worsen.
[2019-04-09] MEDS ORDERED: FUROSEMIDE 40 MG TAB PO SCH (18:00)
[2019-04-09] MEDS ORDERED: ENALAPRIL MALEATE 2.5 MG TAB PO SCH (22:00)
[2019-04-09] MEDS ORDERED: cloNIDine HCL 0.1 MG TAB PO SCH (22:00)
== END 2019-04-09 15:03 | disposition left against medical advice (07) | DRG 720 ==
LOC: ER 09:12 → TELE 09:13 → TELE-EAST 15:08
PROVIDERS: ADMIT Nurse Practitioner Acute Care; ATTEND Internal Medicine
DX: A41.9 Sepsis, unspecified organism (principal); E11.22 Type 2 diabetes mellitus with diabetic chronic kidney disease; I13.0 Hypertensive heart and chronic kidney disease with heart failure and stage 1 through stage 4 chronic kidney disease, or unspecified chronic kidney disease; I50.22 Chronic systolic (congestive) heart failure; E44.1 Mild protein-calorie malnutrition; E66.01 Morbid (severe) obesity due to excess calories; R16.0 Hepatomegaly, not elsewhere classified; N18.3 Chronic kidney disease, stage 3 (moderate); N20.0 Calculus of kidney; D64.9 Anemia, unspecified; I25.10 Atherosclerotic heart disease of native coronary artery without angina pectoris; J45.909 Unspecified asthma, uncomplicated; K21.9 Gastro-esophageal reflux disease without esophagitis; K80.20 Calculus of gallbladder without cholecystitis without obstruction; E86.0 Dehydration; Z53.29 Procedure and treatment not carried out because of patient's decision for other reasons; N30.01 Acute cystitis with hematuria; Z79.84 Long term (current) use of oral hypoglycemic drugs; Z79.899 Other long term (current) drug therapy; Z80.0 Family history of malignant neoplasm of digestive organs; Z82.49 Family history of ischemic heart disease and other diseases of the circulatory system; Z83.3 Family history of diabetes mellitus; Z68.38 Body mass index [BMI] 38.0-38.9, adult
CPT/HCPCS: 36415; 74176; 80053; 80061; 81001; 82962; 83036; 84443; 85025; 85610; 85730; 87086; 96361; 96365; 96375; G0378; J0696; J1815; J1885

== ENCOUNTER 2020-06-10 11:02 | Inpatient (IN) | payer OTHER ==
[~2020-06-10] VITALS: Ht 175.3 cm; Wt 162.9 kg
[~2020-06-10 11:02] MED LIST changes: +ALPR0.5T PO; -ASP81EC PO; +ASPI-394 PO; -CAR125T PO; -ENAL2.5T2 PO; +HYDR-531 PO; -NIFE30TA76 PO
[2020-06-10 12:10] LABS: Basophils # (auto) 0 10 ^3/uL (0-0.2); Basophils % (auto) 0.4 % (0.0-2.0); Eosinophils # (auto) 0 10 ^3/uL (0-0.8); Eosinophils % (auto) 0.1 % (0.0-7.0); Hematocrit 38.2 % (41.0-53.0); Hemoglobin 12.9 g/dL (13.5-17.5); Lymphocytes # (auto) 0.6 10 ^3/uL (0.4-5.4); Mean Corpuscular Hemoglobin 29.1 pg (28.0-32.0); Mean Corpuscular Hgb Conc. 33.7 g/dL (32.0-36.0); Mean Corpuscular Volume 86.5 fL (80.0-100.0); Monocytes # (auto) 0.5 10 ^3/uL (0-1.3); Monocytes % (auto) 11.5 % (0.0-12.0); Neutrophils # (auto) 3.2 10 ^3/uL (1.6-8.6); Nucleated Red Blood Cells % 0.1 %; Platelet Count (auto) 175 10^3/uL (140-450); Red Blood Cells 4.42 10^6/uL (4.5-5.90); Red Cell Distribution Width 14.7 % (11.8-14.3); White Blood Cell 4.3 10^3/uL (4.4-10.8)
[2020-06-10 12:25] LABS: Albumin 2.8 g/dL (3.4-5.0); Magnesium 2.1 mg/dL (1.6-2.6); Potassium 3.6 mmol/L (3.5-5.1)
[2020-06-10 12:30] LABS: BUN/Creatinine Ratio 9.8; Bilirubin, Total 0.8 mg/dL (0.2-1.0); Total Protein 7.9 g/dL (6.4-8.2)
[2020-06-10] MEDS ORDERED: NIFE1TAB31 PO (16:29)
[2020-06-10] MEDS ORDERED: LORazepam 0.5 MG TAB PO PRN (16:30)
[2020-06-10] MEDS ORDERED: CEFEPIME 1 GM in SODIUM CHL 0.9% 50 ML IV ONE (16:30)
[2020-06-10] MEDS ORDERED: FUROSEMIDE 20 MG/2 ML VIAL IV ONE (16:30)
[2020-06-10] MEDS ORDERED: ALBUTEROL SULF HFA 90MCG INH 200DOSE IN PRN (16:30)
[2020-06-10] MEDS ORDERED: ACETAMINOPHEN 500 MG TAB PO PRN (16:30)
[2020-06-10] MEDS ORDERED: ALUM & MAG HYDROX-SIMETH LIQ(MAALOX) 30 ML PO PRN (16:30)
[2020-06-10] MEDS ORDERED: NITROGLYCERIN 0.4 MG SL TAB SL PRN ×2 (16:30)
[2020-06-10] MEDS ORDERED: MORPHINE SULF INJ 2 MG/ML SYRINGE 1ML IV PRN ×3 (16:30)
[2020-06-10] MEDS ORDERED: ONDANSETRON HCL 4 MG/2 ML VIAL IV PRN (16:30)
[2020-06-10] MEDS ORDERED: DOCUSATE SOD 100 MG CAP PO PRN (16:30)
[2020-06-10] MEDS ORDERED: REMDESIVIR PER PHARMACY 0 ML IV SCH (16:30)
[2020-06-10] MEDS ORDERED: ENOXAPARIN SOD 100 MG/1 ML SYRINGE SC ONE (16:30)
[2020-06-10] MEDS ORDERED: CLON0.2T12 PO (16:30)
[2020-06-10] MEDS ORDERED: METF-879 PO (16:31)
[2020-06-10] MEDS ORDERED: ALPR2TAB6 PO (16:32)
[2020-06-10] MEDS ORDERED: ASPITAB34 PO (16:34)
[2020-06-10] MEDS ORDERED: ENAL10TA13 PO (16:36)
[2020-06-10] MEDS ORDERED: ATORVASTATIN 20 MG TAB PO ONE (16:45)
[2020-06-10] MEDS ORDERED: DEXTROSE (50%) 50ML SYRG IV PRN (17:00)
[2020-06-10] MEDS: InsuLIN REG 1unit/0.01ml Soln (100units/ml) SC SCH ×2 (17:00→22:00)
[2020-06-10] MEDS: HYDROcodone-ACET 5/325MG TAB PO PRN (17:02)
[2020-06-10] MEDS: ACCU-CHEK COMFORT CURVE STRIP VI SCH ×2 (17:48→22:29)
[2020-06-10] MEDS: FAMOTIDINE (10MG/ML) 2ML VL IV SCH (22:54)
[2020-06-10 23:30] LABS: CRP High Sensitivity 10.2 mg/dL (< 0.3)
[2020-06-11] MEDS ORDERED: CEFEPIME 1 GM in SODIUM CHL 0.9% 50 ML IV SCH ×2
[2020-06-11] MEDS: BUDESONIDE (INHALATION) 180 MCG IH IN SCH ×3 (01:35→22:00)
[2020-06-11] MEDS: CEFEPIME 2 GM in SODIUM CHL 0.9% 50 ML IV SCH ×4 (01:36→23:42)
[2020-06-11 09:49] LABS: Basophils # (auto) 0 10 ^3/uL (0-0.2); Basophils % (auto) 0.5 % (0.0-2.0); Eosinophils # (auto) 0.1 10 ^3/uL (0-0.8); Eosinophils % (auto) 1.2 % (0.0-7.0); Hematocrit 35.6 % (41.0-53.0); Hemoglobin 12.1 g/dL (13.5-17.5); Lymphocytes # (auto) 0.8 10 ^3/uL (0.4-5.4); Lymphocytes % (auto) 17.8 % (10.0-50.0); Mean Corpuscular Hemoglobin 29.6 pg (28.0-32.0); Monocytes # (auto) 0.4 10 ^3/uL (0-1.3); Monocytes % (auto) 9.5 % (0.0-12.0); Neutrophils # (auto) 3.2 10 ^3/uL (1.6-8.6); Nucleated Red Blood Cells % 0.1 %; Platelet Count (auto) 151 10^3/uL (140-450); Red Blood Cells 4.09 10^6/uL (4.5-5.90); Red Cell Distribution Width 14.4 % (11.8-14.3); White Blood Cell 4.4 10^3/uL (4.4-10.8)
[2020-06-11 10:05] LABS: Albumin 2.6 g/dL (3.4-5.0); BUN/Creatinine Ratio 13.7; Calcium 7.8 mg/dL (8.5-10.1); Potassium 3.7 mmol/L (3.5-5.1)
[2020-06-11 10:08] LABS: Bilirubin, Total 0.6 mg/dL (0.2-1.0); Total Protein 7.4 g/dL (6.4-8.2)
[2020-06-11] MEDS: FUROSEMIDE 20 MG/2 ML VIAL IV SCH ×2 (11:33→18:10)
[2020-06-11] MEDS: ENOXAPARIN SOD 100 MG/1 ML SYRINGE SC SCH ×2 (11:33→18:10)
[2020-06-11] MEDS: ACCU-CHEK COMFORT CURVE STRIP VI SCH ×4 (11:40→22:24)
[2020-06-11] MEDS: FAMOTIDINE (10MG/ML) 2ML VL IV SCH ×2 (11:41→22:25)
[2020-06-11] MEDS: ZINC SULFATE 220mg CAP or TAB PO SCH (11:41)
[2020-06-11] MEDS: POTASSIUM CHL 20 Meq TABLET PO SCH (11:41)
[2020-06-11] MEDS: DexAMETHasone SOD PHOS 10MG/1ML VIAL INJ IV SCH (11:41)
[2020-06-11] MEDS: METOPROLOL SUCCINATE XL 50 MG TAB PO SCH (11:41)
[2020-06-11] MEDS: ASCORBIC ACID 1,000 MG TAB PO SCH (11:42)
[2020-06-11] MEDS: CHOLECALCIFEROL (VITD3) 2,000 UNIT CAP PO SCH (11:42)
[2020-06-11] MEDS: LISINOPRIL 5 MG TAB PO SCH (11:42)
[2020-06-11] MEDS: HYDROcodone-ACET 5/325MG TAB PO PRN (12:02)
[2020-06-11] MEDS: InsuLIN REG 1unit/0.01ml Soln (100units/ml) SC SCH ×4 (13:27→22:24)
[2020-06-11 20:25] VITALS: BP 112/71
[2020-06-11] MEDS: ATORVASTATIN 20 MG TAB PO SCH (22:25)
[2020-06-12] MEDS: ENOXAPARIN SOD 100 MG/1 ML SYRINGE SC SCH ×2 (03:54→18:27)
[2020-06-12] MEDS: InsuLIN REG 1unit/0.01ml Soln (100units/ml) SC SCH ×4 (06:06→22:45)
[2020-06-12] MEDS: ACCU-CHEK COMFORT CURVE STRIP VI SCH ×4 (06:06→22:00)
[2020-06-12] MEDS: FUROSEMIDE 20 MG/2 ML VIAL IV SCH ×2 (06:07→18:32)
[2020-06-12 08:00] VITALS: BP 124/86
[2020-06-12] MEDS: BUDESONIDE (INHALATION) 180 MCG IH IN SCH ×2 (10:00→22:00)
[2020-06-12] MEDS: METOPROLOL SUCCINATE XL 50 MG TAB PO SCH (10:00)
[2020-06-12] MEDS: POTASSIUM CHL 20 Meq TABLET PO SCH ×2 (10:00→12:22)
[2020-06-12] MEDS: FAMOTIDINE (10MG/ML) 2ML VL IV SCH ×2 (10:26→22:52)
[2020-06-12] MEDS: DexAMETHasone SOD PHOS 10MG/1ML VIAL INJ IV SCH (10:26)
[2020-06-12] MEDS: CEFEPIME 2 GM in SODIUM CHL 0.9% 50 ML IV SCH ×2 (10:26→19:46)
[2020-06-12] MEDS: ZINC SULFATE 220mg CAP or TAB PO SCH (10:27)
[2020-06-12] MEDS: ASCORBIC ACID 1,000 MG TAB PO SCH (10:27)
[2020-06-12] MEDS: CHOLECALCIFEROL (VITD3) 2,000 UNIT CAP PO SCH (10:28)
[2020-06-12] MEDS: LISINOPRIL 5 MG TAB PO SCH (10:28)
[2020-06-12] MEDS: AZITHROMYCIN 500MG/ 250ML 250 ML IV SCH (14:51)
[2020-06-12 16:00] VITALS: BP 145/92
[2020-06-12] MEDS ORDERED: REMDESIVIR 200 MG in NS 210ml LOADING DOSE ADULT IV ONE (17:30)
[2020-06-12] MEDS: ATORVASTATIN 20 MG TAB PO SCH (22:00)
[2020-06-13] VITALS: BP 149/89
[2020-06-13] MEDS: CEFEPIME 2 GM in SODIUM CHL 0.9% 50 ML IV SCH ×3 (03:53→20:28)
[2020-06-13] MEDS: ENOXAPARIN SOD 100 MG/1 ML SYRINGE SC SCH ×2 (04:28→16:08)
[2020-06-13] MEDS: InsuLIN REG 1unit/0.01ml Soln (100units/ml) SC SCH ×4 (06:23→22:28)
[2020-06-13] MEDS: FUROSEMIDE 20 MG/2 ML VIAL IV SCH ×2 (06:24→17:14)
[2020-06-13] MEDS: ACCU-CHEK COMFORT CURVE STRIP VI SCH ×4 (06:36→22:26)
[2020-06-13 08:00] VITALS: BP 153/101
[2020-06-13] MEDS: BUDESONIDE (INHALATION) 180 MCG IH IN SCH ×2 (11:06→22:00)
[2020-06-13] MEDS: DexAMETHasone SOD PHOS 10MG/1ML VIAL INJ IV SCH (11:06)
[2020-06-13] MEDS: POTASSIUM CHL 20 Meq TABLET PO SCH (11:07)
[2020-06-13] MEDS: AZITHROMYCIN 500MG/ 250ML 250 ML IV SCH (11:07)
[2020-06-13] MEDS: ZINC SULFATE 220mg CAP or TAB PO SCH (11:07)
[2020-06-13] MEDS: FAMOTIDINE (10MG/ML) 2ML VL IV SCH ×2 (11:07→22:00)
[2020-06-13] MEDS: ASCORBIC ACID 1,000 MG TAB PO SCH (11:08)
[2020-06-13] MEDS: METOPROLOL SUCCINATE XL 50 MG TAB PO SCH (11:08)
[2020-06-13] MEDS: CHOLECALCIFEROL (VITD3) 2,000 UNIT CAP PO SCH (11:09)
[2020-06-13] MEDS: LISINOPRIL 5 MG TAB PO SCH (11:09)
[2020-06-13 13:22] LABS: Potassium 4.6 mmol/L (3.5-5.1)
[2020-06-13 13:35] LABS: Albumin 2.7 g/dL (3.4-5.0); BUN/Creatinine Ratio 27.2; Bilirubin, Total 0.4 mg/dL (0.2-1.0); Calcium 8.9 mg/dL (8.5-10.1); Total Protein 7.8 g/dL (6.4-8.2)
[2020-06-13 16:00] VITALS: BP 143/99
[2020-06-13] MEDS: REMDESIVIR 100 MG in SODIUM CHL 0.9% 250 ML IV SCH (16:08)
[2020-06-13 16:29] VITALS: BP 131/93
[2020-06-13] MEDS: ATORVASTATIN 20 MG TAB PO SCH (22:31)
[2020-06-14 00:18] VITALS: BP 154/101
[2020-06-14] MEDS: ENOXAPARIN SOD 100 MG/1 ML SYRINGE SC SCH ×2 (03:32→17:05)
[2020-06-14] MEDS: CEFEPIME 2 GM in SODIUM CHL 0.9% 50 ML IV SCH ×3 (03:32→20:00)
[2020-06-14] MEDS: InsuLIN REG 1unit/0.01ml Soln (100units/ml) SC SCH ×4 (06:41→22:19)
[2020-06-14] MEDS: FUROSEMIDE 20 MG/2 ML VIAL IV SCH ×2 (06:43→17:53)
[2020-06-14] MEDS: ACCU-CHEK COMFORT CURVE STRIP VI SCH ×4 (06:57→22:00)
[2020-06-14 07:49] LABS: Basophils # (auto) 0 10 ^3/uL (0-0.2); Basophils % (auto) 0.4 % (0.0-2.0); Eosinophils # (auto) 0 10 ^3/uL (0-0.8); Hematocrit 41.1 % (41.0-53.0); Hemoglobin 13.9 g/dL (13.5-17.5); Lymphocytes # (auto) 1.5 10 ^3/uL (0.4-5.4); Lymphocytes % (auto) 14.1 % (10.0-50.0); Mean Corpuscular Hemoglobin 29.2 pg (28.0-32.0); Mean Corpuscular Hgb Conc. 33.8 g/dL (32.0-36.0); Mean Corpuscular Volume 86.4 fL (80.0-100.0); Monocytes % (auto) 9.6 % (0.0-12.0); Neutrophils % (auto) 75.9 % (37.0-80.0); Platelet Count (auto) 233 10^3/uL (140-450); Red Blood Cells 4.76 10^6/uL (4.5-5.90); Red Cell Distribution Width 14.8 % (11.8-14.3); White Blood Cell 10.5 10^3/uL (4.4-10.8)
[2020-06-14 08:15] VITALS: BP 149/103
[2020-06-14] MEDS ORDERED: hydrALAZINE HCL 20 MG/ML VL IV PRN (09:30)
[2020-06-14 09:57] LABS: Potassium 4.5 mmol/L (3.5-5.1)
[2020-06-14 09:58] LABS: Albumin 3.1 g/dL (3.4-5.0); BUN/Creatinine Ratio 25.3; Bilirubin, Total 0.5 mg/dL (0.2-1.0); Total Protein 8.4 g/dL (6.4-8.2)
[2020-06-14] MEDS: BUDESONIDE (INHALATION) 180 MCG IH IN SCH ×2 (10:00→20:02)
[2020-06-14] MEDS: FAMOTIDINE (10MG/ML) 2ML VL IV SCH ×2 (10:39→22:18)
[2020-06-14] MEDS: DexAMETHasone SOD PHOS 10MG/1ML VIAL INJ IV SCH (10:39)
[2020-06-14] MEDS: AZITHROMYCIN 500MG/ 250ML 250 ML IV SCH (10:39)
[2020-06-14] MEDS: POTASSIUM CHL 20 Meq TABLET PO SCH (10:40)
[2020-06-14] MEDS: ZINC SULFATE 220mg CAP or TAB PO SCH (10:40)
[2020-06-14] MEDS: CHOLECALCIFEROL (VITD3) 2,000 UNIT CAP PO SCH (10:41)
[2020-06-14] MEDS: ASCORBIC ACID 1,000 MG TAB PO SCH (10:41)
[2020-06-14] MEDS: METOPROLOL SUCCINATE XL 50 MG TAB PO SCH (10:41)
[2020-06-14] MEDS: LISINOPRIL 5 MG TAB PO SCH (10:42)
[2020-06-14 16:00] VITALS: BP 156/105
[2020-06-14] MEDS: REMDESIVIR 100 MG in SODIUM CHL 0.9% 250 ML IV SCH (16:07)
[2020-06-14] MEDS: ATORVASTATIN 20 MG TAB PO SCH (22:18)
[2020-06-15] VITALS: BP 151/88
[2020-06-15] MEDS: CEFEPIME 2 GM in SODIUM CHL 0.9% 50 ML IV SCH ×2 (03:41→12:00)
[2020-06-15] MEDS: ENOXAPARIN SOD 100 MG/1 ML SYRINGE SC SCH (03:41)
[2020-06-15] MEDS: InsuLIN REG 1unit/0.01ml Soln (100units/ml) SC SCH ×2 (06:15→11:59)
[2020-06-15] MEDS: FUROSEMIDE 20 MG/2 ML VIAL IV SCH (06:19)
[2020-06-15] MEDS: ACCU-CHEK COMFORT CURVE STRIP VI SCH ×2 (06:23→11:53)
[2020-06-15 07:21] LABS: Potassium 4.7 mmol/L (3.5-5.1)
[2020-06-15 07:30] LABS: Albumin 2.6 g/dL (3.4-5.0); Bilirubin, Total 0.4 mg/dL (0.2-1.0); Calcium 8.9 mg/dL (8.5-10.1); Total Protein 7.4 g/dL (6.4-8.2)
[2020-06-15 08:00] VITALS: BP 149/101
[2020-06-15] MEDS: BUDESONIDE (INHALATION) 180 MCG IH IN SCH (10:00)
[2020-06-15] MEDS: ZINC SULFATE 220mg CAP or TAB PO SCH (11:52)
[2020-06-15] MEDS: AZITHROMYCIN 500MG/ 250ML 250 ML IV SCH (11:52)
[2020-06-15] MEDS: FAMOTIDINE (10MG/ML) 2ML VL IV SCH (11:52)
[2020-06-15] MEDS: DexAMETHasone SOD PHOS 10MG/1ML VIAL INJ IV SCH (11:52)
[2020-06-15] MEDS: ASCORBIC ACID 1,000 MG TAB PO SCH (11:53)
[2020-06-15] MEDS: CHOLECALCIFEROL (VITD3) 2,000 UNIT CAP PO SCH (11:53)
[2020-06-15] MEDS: POTASSIUM CHL 20 Meq TABLET PO SCH (11:53)
[2020-06-15] MEDS: LISINOPRIL 5 MG TAB PO SCH (11:53)
[2020-06-15] MEDS: METOPROLOL SUCCINATE XL 50 MG TAB PO SCH (12:00)
== END 2020-06-15 14:30 | disposition left against medical advice (07) | DRG 137 ==
LOC: EDBD 11:02 → ER 11:02 → TELE 11:03 → TELE-WESTW 06-11 20:20
PROVIDERS: ADMIT Hospitalist; ATTEND Internal Medicine
PROC: XW033E5 Introduction of Remdesivir Anti-infective into Peripheral Vein, Percutaneous Approach, New Technology Group 5 (ICD-10-PCS; principal; 2020-06-12)
PROC: 5A09357 Assistance with Respiratory Ventilation, Less than 24 Consecutive Hours, Continuous Positive Airway Pressure (ICD-10-PCS; 2020-06-12)
DX: U07.1 COVID-19 (principal); J96.01 Acute respiratory failure with hypoxia; J12.89 Other viral pneumonia; E66.01 Morbid (severe) obesity due to excess calories; E87.1 Hypo-osmolality and hyponatremia; F41.9 Anxiety disorder, unspecified; N18.9 Chronic kidney disease, unspecified; R51.9 Headache, unspecified; D64.9 Anemia, unspecified; I13.0 Hypertensive heart and chronic kidney disease with heart failure and stage 1 through stage 4 chronic kidney disease, or unspecified chronic kidney disease; Z68.43 Body mass index [BMI] 50.0-59.9, adult; Z53.29 Procedure and treatment not carried out because of patient's decision for other reasons; E11.22 Type 2 diabetes mellitus with diabetic chronic kidney disease; E78.5 Hyperlipidemia, unspecified; J44.9 Chronic obstructive pulmonary disease, unspecified; I25.10 Atherosclerotic heart disease of native coronary artery without angina pectoris; I25.2 Old myocardial infarction; Z85.038 Personal history of other malignant neoplasm of large intestine; Z79.899 Other long term (current) drug therapy; I50.33 Acute on chronic diastolic (congestive) heart failure; J44.0 Chronic obstructive pulmonary disease with (acute) lower respiratory infection
CPT/HCPCS: 36415; 70450; 71045; 80053; 80061; 82728; 82962; 83036; 83605; 83615; 83735; 83880; 84443; 84484; 85025; 85379; 86141; 87081; 87426; 93005; 94640; 94660; 96365; 96372; 96375; G0378; J1100; J1815; J3490

== ENCOUNTER 2020-12-30 17:40 | Emergency (ER) | payer OTHER ==
[~2020-12-30] VITALS: Ht 172.7 cm; Wt 134.3 kg
[~2020-12-30 17:40] MED LIST changes: -ALPR0.5T PO; +ALPR2TAB6 PO; -ASPI-394 PO; +ASPITAB34 PO; -BACL10TA PO; -CLON0.1T PO; +CLON0.2T12 PO; +ENAL10TA13 PO; -HYDR-531 PO; -METF-370 PO; +METF-879 PO; +NIFE1TAB31 PO
[2020-12-30 19:29] VITALS: BP 162/100
[2020-12-30] MEDS ORDERED: KETOROLAC TROMETH 60MG/2ML VIAL IM ONE (20:00)
== END 2020-12-30 20:30 | disposition home or self-care (01) ==
LOC: ER 17:40 → EDBD 17:40 → ER 20:30
DX: S13.4XXA Sprain of ligaments of cervical spine, initial encounter (principal); S43.401A Unspecified sprain of right shoulder joint, initial encounter; M62.838 Other muscle spasm; M41.82 Other forms of scoliosis, cervical region; M19.011 Primary osteoarthritis, right shoulder; E66.9 Obesity, unspecified; Z68.42 Body mass index [BMI] 45.0-49.9, adult; I11.0 Hypertensive heart disease with heart failure; I50.9 Heart failure, unspecified; I25.2 Old myocardial infarction; I25.10 Atherosclerotic heart disease of native coronary artery without angina pectoris; J44.9 Chronic obstructive pulmonary disease, unspecified; E11.9 Type 2 diabetes mellitus without complications; E78.5 Hyperlipidemia, unspecified; Z79.82 Long term (current) use of aspirin; Z79.899 Other long term (current) drug therapy; V49.49XA Driver injured in collision with other motor vehicles in traffic accident, initial encounter; Y93.89 Activity, other specified; Y92.410 Unspecified street and highway as the place of occurrence of the external cause; Y99.8 Other external cause status
CPT/HCPCS: 72125; 73030; 82962; 93005; 96372; 99284; J1885

== ENCOUNTER 2021-01-18 04:04 | Inpatient (IN) | payer OTHER ==
[~2021-01-18] VITALS: Ht 175.3 cm; Wt 175.0 kg
[2021-01-18] MEDS ORDERED: dilTIAZem 25 MG/5 ML VIAL IV ONE (05:15)
[2021-01-18] MEDS ORDERED: FUROSEMIDE 20 MG/2 ML VIAL IV ONE (05:15)
[2021-01-18] MEDS ORDERED: ASPirin 325 MG TAB PO ONE (05:15)
[2021-01-18 06:27] LABS: Basophils # (auto) 0.1 10 ^3/uL (0-0.2); Basophils % (auto) 0.6 % (0.0-2.0); Eosinophils # (auto) 0.2 10 ^3/uL (0-0.8); Eosinophils % (auto) 2.2 % (0.0-7.0); Hematocrit 43.2 % (41.0-53.0); Hemoglobin 14.8 g/dL (13.5-17.5); Lymphocytes # (auto) 2.5 10 ^3/uL (0.4-5.4); Lymphocytes % (auto) 29.5 % (10.0-50.0); Mean Corpuscular Hemoglobin 30.2 pg (28.0-32.0); Mean Corpuscular Hgb Conc. 34.2 g/dL (32.0-36.0); Mean Corpuscular Volume 88.2 fL (80.0-100.0); Monocytes # (auto) 0.8 10 ^3/uL (0-1.3); Monocytes % (auto) 9.2 % (0.0-12.0); Neutrophils # (auto) 4.8 10 ^3/uL (1.6-8.6); Neutrophils % (auto) 58.5 % (37.0-80.0); Nucleated Red Blood Cells % 0.1 %; Red Blood Cells 4.89 10^6/uL (4.5-5.90); Red Cell Distribution Width 15.2 % (11.8-14.3); White Blood Cell 8.3 10^3/uL (4.4-10.8)
[2021-01-18 06:52] LABS: Albumin 3.3 g/dL (3.4-5.0); Calcium 8.4 mg/dL (8.5-10.1); Magnesium 2.4 mg/dL (1.6-2.6); Potassium 3.4 mmol/L (3.5-5.1)
[2021-01-18 06:59] LABS: BUN/Creatinine Ratio 16.7; Total Protein 8.1 g/dL (6.4-8.2)
[2021-01-18] MEDS ORDERED: ENOXAPARIN SOD 150 MG/1 ML SYRINGE SC ONE (07:15)
[2021-01-18] MEDS ORDERED: POTASSIUM EFFERVESENT TAB 25 MEQ PO ONE (07:15)
[2021-01-18] MEDS ORDERED: MORPHINE SULFATE 4 MG/ML SYR/VIAL IV PRN (11:00)
[2021-01-18] MEDS ORDERED: TEMAZEPAM 15 MG CAP PO PRN (11:00)
[2021-01-18] MEDS ORDERED: SODIUM CHLORIDE 0.9% 1,000 ML IV ONE (11:00)
[2021-01-18] MEDS ORDERED: MORPHINE SULF INJ 2 MG/ML SYRINGE 1ML IV PRN (11:00)
[2021-01-18] MEDS ORDERED: ACETAMINOPHEN 325 MG TAB PO PRN (11:00)
[2021-01-18] MEDS ORDERED: HYDROcodone-ACET 5/325MG TAB PO PRN (11:00)
[2021-01-18] MEDS ORDERED: NITROGLYCERIN 0.4 MG SL TAB SL PRN (11:00)
[2021-01-18] MEDS ORDERED: ONDANSETRON HCL 4 MG/2 ML VIAL IV PRN (11:00)
[2021-01-18] MEDS: METOPROLOL TARTRATE 50 MG TAB PO SCH ×2 (12:43→22:00)
[2021-01-18] MEDS ORDERED: DEXTROSE (50%) 50ML SYRG IV PRN (16:15)
[2021-01-18] MEDS: InsuLIN REG 1unit/0.01ml Soln (100units/ml) SC SCH ×2 (17:18→22:42)
[2021-01-18] MEDS: ACCU-CHEK COMFORT CURVE STRIP VI SCH ×2 (17:18→22:37)
[2021-01-18] MEDS ORDERED: FUROSEMIDE 100 MG/10ML VIAL IV ONE (21:00)
[2021-01-18 23:46] LABS: Urine Bacteria NONE SEEN /hpf (None Seen); Urine Blood Negative /uL (Negative); Urine Hyaline Cast MOD /lpf (0 - 2); Urine Mucus FEW (None Seen); Urine Specific Gravity 1.013 (1.001-1.035); Urine WBC 1 /hpf (0 - 3)
[2021-01-19 01:10] VITALS: BP 140/84
[2021-01-19 05:00] VITALS: BP 140/79
[2021-01-19] MEDS: ACCU-CHEK COMFORT CURVE STRIP VI SCH ×4 (06:50→22:10)
[2021-01-19] MEDS: FUROSEMIDE 100 MG/10ML VIAL IV SCH ×2 (06:51→17:20)
[2021-01-19] MEDS: InsuLIN REG 1unit/0.01ml Soln (100units/ml) SC SCH ×4 (06:52→22:18)
[2021-01-19] MEDS: METOPROLOL TARTRATE 50 MG TAB PO SCH ×2 (08:51→22:00)
[2021-01-19 09:00] VITALS: BP 150/84
[2021-01-19 10:51] LABS: Basophils # (auto) 0.1 10 ^3/uL (0-0.2); Basophils % (auto) 0.9 % (0.0-2.0); Eosinophils # (auto) 0.2 10 ^3/uL (0-0.8); Eosinophils % (auto) 2.5 % (0.0-7.0); Hematocrit 40.4 % (41.0-53.0); Hemoglobin 13.5 g/dL (13.5-17.5); Lymphocytes # (auto) 2.3 10 ^3/uL (0.4-5.4); Mean Corpuscular Hemoglobin 29.7 pg (28.0-32.0); Mean Corpuscular Hgb Conc. 33.5 g/dL (32.0-36.0); Mean Corpuscular Volume 88.7 fL (80.0-100.0); Monocytes # (auto) 0.7 10 ^3/uL (0-1.3); Monocytes % (auto) 8.6 % (0.0-12.0); Neutrophils # (auto) 4.7 10 ^3/uL (1.6-8.6); Red Blood Cells 4.56 10^6/uL (4.5-5.90); Red Cell Distribution Width 15.2 % (11.8-14.3)
[2021-01-19 11:10] LABS: Calcium 8.5 mg/dL (8.5-10.1); Potassium 3.4 mmol/L (3.5-5.1)
[2021-01-19 11:13] LABS: BUN/Creatinine Ratio 17.4; Bilirubin, Total 1.2 mg/dL (0.2-1.0); Total Protein 7.5 g/dL (6.4-8.2)
[2021-01-19 12:38] VITALS: BP 116/87
[2021-01-19 16:51] VITALS: BP 152/97
[2021-01-19 22:00] VITALS: BP 154/81
[2021-01-20 05:00] VITALS: BP 138/78
[2021-01-20] MEDS: FUROSEMIDE 100 MG/10ML VIAL IV SCH ×2 (06:45→18:09)
[2021-01-20] MEDS: InsuLIN REG 1unit/0.01ml Soln (100units/ml) SC SCH ×4 (06:46→21:55)
[2021-01-20] MEDS: ACCU-CHEK COMFORT CURVE STRIP VI SCH ×4 (06:46→21:47)
[2021-01-20 09:00] VITALS: BP 137/87
[2021-01-20] MEDS: METOPROLOL TARTRATE 50 MG TAB PO SCH ×2 (10:16→21:47)
[2021-01-20 12:58] VITALS: BP 140/92
[2021-01-20 17:34] VITALS: BP 131/72
[2021-01-20 22:00] VITALS: BP 122/76
[2021-01-21 05:00] VITALS: BP 134/97
[2021-01-21] MEDS: ACCU-CHEK COMFORT CURVE STRIP VI SCH ×2 (06:05→11:25)
[2021-01-21] MEDS: FUROSEMIDE 100 MG/10ML VIAL IV SCH (06:05)
[2021-01-21] MEDS: InsuLIN REG 1unit/0.01ml Soln (100units/ml) SC SCH ×2 (06:19→11:30)
[2021-01-21 08:17] VITALS: BP 129/93
[2021-01-21] MEDS: METOPROLOL TARTRATE 50 MG TAB PO SCH (11:25)
[2021-01-21 12:20] VITALS: BP 131/104
[2021-01-21 15:15] VITALS: BP 139/90
[2021-01-21 15:33] VITALS: BP 131/104
== END 2021-01-21 15:50 | disposition home health service (06) | DRG 194 ==
LOC: EDBD 04:04 → ER 04:04 → TELE 10:46 → TELE-WESTW 23:53 → UNDODISIN 01-21 15:18
PROVIDERS: ADMIT Nurse Practitioner; ATTEND Nurse Practitioner
DX: I13.0 Hypertensive heart and chronic kidney disease with heart failure and stage 1 through stage 4 chronic kidney disease, or unspecified chronic kidney disease (principal); E11.22 Type 2 diabetes mellitus with diabetic chronic kidney disease; I42.8 Other cardiomyopathies; E66.01 Morbid (severe) obesity due to excess calories; H53.462 Homonymous bilateral field defects, left side; N18.9 Chronic kidney disease, unspecified; G47.30 Sleep apnea, unspecified; I48.91 Unspecified atrial fibrillation; J44.9 Chronic obstructive pulmonary disease, unspecified; E78.5 Hyperlipidemia, unspecified; Z20.822 Contact with and (suspected) exposure to COVID-19; Z83.3 Family history of diabetes mellitus; Z82.49 Family history of ischemic heart disease and other diseases of the circulatory system; Z87.820 Personal history of traumatic brain injury; I25.2 Old myocardial infarction; Z79.899 Other long term (current) drug therapy; Z80.0 Family history of malignant neoplasm of digestive organs; Z91.19 Patient's noncompliance with other medical treatment and regimen; Z68.43 Body mass index [BMI] 50.0-59.9, adult; I50.23 Acute on chronic systolic (congestive) heart failure
CPT/HCPCS: 36415; 70450; 71045; 80053; 81001; 82962; 83735; 83880; 84443; 84484; 85025; 87426; 93005; 93306; 96372; 96374; 96375; G0378; J1815

== ENCOUNTER 2021-02-03 00:03 | Inpatient (IN) | payer OTHER ==
[~2021-02-03] VITALS: Ht 177.8 cm; Wt 184.3 kg
[2021-02-03 00:59] LABS: Basophils # (auto) 0.1 10 ^3/uL (0-0.2); Basophils % (auto) 0.8 % (0.0-2.0); Eosinophils # (auto) 0.3 10 ^3/uL (0-0.8); Eosinophils % (auto) 3.9 % (0.0-7.0); Hematocrit 40.8 % (41.0-53.0); Hemoglobin 13.5 g/dL (13.5-17.5); Lymphocytes # (auto) 2.3 10 ^3/uL (0.4-5.4); Lymphocytes % (auto) 28.9 % (10.0-50.0); Mean Corpuscular Hemoglobin 29.4 pg (28.0-32.0); Monocytes # (auto) 0.7 10 ^3/uL (0-1.3); Monocytes % (auto) 8.7 % (0.0-12.0); Neutrophils # (auto) 4.5 10 ^3/uL (1.6-8.6); Neutrophils % (auto) 57.7 % (37.0-80.0); Nucleated Red Blood Cells % 0.1 %; Red Blood Cells 4.59 10^6/uL (4.5-5.90); Red Cell Distribution Width 15.3 % (11.8-14.3); White Blood Cell 7.8 10^3/uL (4.4-10.8)
[2021-02-03 01:11] LABS: Albumin 2.9 g/dL (3.4-5.0); BUN/Creatinine Ratio 14.7; Calcium 8.5 mg/dL (8.5-10.1); Potassium 3.7 mmol/L (3.5-5.1)
[2021-02-03 01:15] LABS: Bilirubin, Total 1.4 mg/dL (0.2-1.0); Total Protein 7.1 g/dL (6.4-8.2)
[2021-02-03] MEDS ORDERED: FUROSEMIDE 40 MG/4 ML VIAL IV ONE (01:15)
[2021-02-03] MEDS ORDERED: dilTIAZem 25 MG/5 ML VIAL IV ONE ×2 (01:15→04:00)
[2021-02-03] MEDS ORDERED: ASPirin 325 MG TAB PO ONE (02:00)
[2021-02-03 03:13] LABS: INR 1.24 (0.9-1.15)
[2021-02-03] MEDS ORDERED: ACETAMINOPHEN 325 MG TAB PO PRN (04:00)
[2021-02-03] MEDS ORDERED: MORPHINE SULFATE 4 MG/ML SYR/VIAL IV PRN (04:00)
[2021-02-03] MEDS ORDERED: DOCUSATE SOD 100 MG CAP PO PRN (04:00)
[2021-02-03] MEDS ORDERED: ALBUMIN 25% 50 ML IV ONE (04:00)
[2021-02-03] MEDS ORDERED: ONDANSETRON HCL 4 MG/2 ML VIAL IV PRN (04:00)
[2021-02-03] MEDS ORDERED: DEXTROSE (50%) 50ML SYRG IV PRN (04:00)
[2021-02-03] MEDS ORDERED: MORPHINE SULFATE INJECTION 2 MG/2 ML SYRG IV PRN (04:00)
[2021-02-03] MEDS ORDERED: dilTIAZem 125mg/125ml BAG KIT 125 ML IV ONE (04:00)
[2021-02-03] MEDS ORDERED: HYDROcodone-ACET 5/325MG TAB PO PRN (04:00)
[2021-02-03] MEDS ORDERED: NITROGLYCERIN 0.4 MG SL TAB SL PRN (04:00)
[2021-02-03 04:42] LABS: Basophils # (auto) 0.1 10 ^3/uL (0-0.2); Basophils % (auto) 1.3 % (0.0-2.0); Eosinophils # (auto) 0.3 10 ^3/uL (0-0.8); Eosinophils % (auto) 3.8 % (0.0-7.0); Hematocrit 39.8 % (41.0-53.0); Hemoglobin 13.2 g/dL (13.5-17.5); Lymphocytes # (auto) 2.5 10 ^3/uL (0.4-5.4); Lymphocytes % (auto) 28.1 % (10.0-50.0); Mean Corpuscular Hemoglobin 29.4 pg (28.0-32.0); Mean Corpuscular Hgb Conc. 33.3 g/dL (32.0-36.0); Mean Corpuscular Volume 88.3 fL (80.0-100.0); Monocytes # (auto) 0.9 10 ^3/uL (0-1.3); Monocytes % (auto) 10.3 % (0.0-12.0); Neutrophils % (auto) 56.5 % (37.0-80.0); Nucleated Red Blood Cells % 0.1 %; Red Cell Distribution Width 15.1 % (11.8-14.3); White Blood Cell 8.9 10^3/uL (4.4-10.8)
[2021-02-03 05:14] LABS: Albumin 2.4 g/dL (3.4-5.0); BUN/Creatinine Ratio 16.3; Bilirubin, Total 1.2 mg/dL (0.2-1.0); Calcium 7.1 mg/dL (8.5-10.1)
[2021-02-03] MEDS ORDERED: POTASSIUM CHL 20 Meq TABLET PO ONE (05:45)
[2021-02-03] MEDS: SODIUM CHLOR 0.9% PF (SALINE LOCK) 10ML VIAL/SYR IV SCH ×3 (05:49→22:00)
[2021-02-03] MEDS: ACCU-CHEK COMFORT CURVE STRIP VI SCH ×4 (06:40→22:00)
[2021-02-03] MEDS: InsuLIN REG 1unit/0.01ml Soln (100units/ml) SC SCH ×5 (06:41→22:50)
[2021-02-03] MEDS: cefTRIAXone 1GM/50ML D5W 50 ML IV SCH (09:12)
[2021-02-03] MEDS ORDERED: CARVEDILOL 12.5 MG TAB PO SCH ×2 (10:00→16:30)
[2021-02-03] MEDS ORDERED: dilTIAZem HCL 180MG ER CAP PO SCH (10:00)
[2021-02-03] MEDS ORDERED: FUROSEMIDE 40 MG/4 ML VIAL IV SCH (10:00)
[2021-02-03] MEDS: MULTIPLE VITAMIN TAB PO SCH (10:34)
[2021-02-03] MEDS: ZINC SULFATE 220mg CAP or TAB PO SCH (10:35)
[2021-02-03] MEDS: ASPirin 81 mg TAB PO SCH (10:36)
[2021-02-03] MEDS: ASCORBIC ACID 500 MG TAB PO SCH ×2 (10:36→22:50)
[2021-02-03] MEDS: HEPARIN SODIUM (PORCINE) 5000 UNITS/ML 1ML VIAL SC SCH ×2 (10:43→22:50)
[2021-02-03] MEDS: FAMOTIDINE (10MG/ML) 2ML VL IV SCH (10:48)
[2021-02-03] MEDS: AZITHROMYCIN 500MG/ 250ML 250 ML IV SCH (10:49)
[2021-02-03] MEDS ORDERED: SODIUM CHLORIDE 0.9% 250 ML IV ONE (16:15)
[2021-02-03] MEDS ORDERED: DIGOXIN 0.25 MG TAB PO ONE (16:30)
[2021-02-03] MEDS ORDERED: NOREPINEPHRINE 8 MG/250ML KIT 250 ML IV SCH (16:45)
[2021-02-03] MEDS: CARVEDILOL 12.5 MG TAB PO SCH (22:50)
[2021-02-03] MEDS: ATORVASTATIN 20 MG TAB PO SCH (22:50)
[2021-02-04 04:53] LABS: Basophils # (auto) 0.1 10 ^3/uL (0-0.2); Basophils % (auto) 1.1 % (0.0-2.0); Eosinophils # (auto) 0.3 10 ^3/uL (0-0.8); Eosinophils % (auto) 4.2 % (0.0-7.0); Hemoglobin 14.2 g/dL (13.5-17.5); Lymphocytes # (auto) 2.2 10 ^3/uL (0.4-5.4); Lymphocytes % (auto) 27.1 % (10.0-50.0); Mean Corpuscular Hemoglobin 29.1 pg (28.0-32.0); Mean Corpuscular Hgb Conc. 32.3 g/dL (32.0-36.0); Mean Corpuscular Volume 89.9 fL (80.0-100.0); Monocytes # (auto) 0.8 10 ^3/uL (0-1.3); Monocytes % (auto) 9.3 % (0.0-12.0); Neutrophils # (auto) 4.7 10 ^3/uL (1.6-8.6); Neutrophils % (auto) 58.3 % (37.0-80.0); Nucleated Red Blood Cells % 0.1 %; Red Blood Cells 4.89 10^6/uL (4.5-5.90); Red Cell Distribution Width 15.8 % (11.8-14.3); White Blood Cell 8.1 10^3/uL (4.4-10.8)
[2021-02-04 05:13] LABS: Albumin 3.2 g/dL (3.4-5.0); Calcium 8.9 mg/dL (8.5-10.1); Potassium 4.6 mmol/L (3.5-5.1)
[2021-02-04 05:19] LABS: BUN/Creatinine Ratio 13.9; Bilirubin, Total 1.4 mg/dL (0.2-1.0); Total Protein 7.8 g/dL (6.4-8.2)
[2021-02-04] MEDS: SODIUM CHLOR 0.9% PF (SALINE LOCK) 10ML VIAL/SYR IV SCH ×3 (06:00→22:07)
[2021-02-04] MEDS: ACCU-CHEK COMFORT CURVE STRIP VI SCH ×4 (07:08→22:07)
[2021-02-04] MEDS: InsuLIN REG 1unit/0.01ml Soln (100units/ml) SC SCH ×4 (07:09→22:09)
[2021-02-04] MEDS ORDERED: APIX2.5T PO (10:19)
[2021-02-04] MEDS ORDERED: FURO80TA3 PO (10:19)
[2021-02-04 10:20] VITALS: BP 110/49
[2021-02-04] MEDS: FUROSEMIDE 40 MG/4 ML VIAL IV SCH ×2 (11:05→22:07)
[2021-02-04] MEDS: FAMOTIDINE (10MG/ML) 2ML VL IV SCH (11:06)
[2021-02-04] MEDS: HEPARIN SODIUM (PORCINE) 5000 UNITS/ML 1ML VIAL SC SCH ×2 (11:06→22:09)
[2021-02-04 12:00] VITALS: BP 120/96
[2021-02-04] MEDS: cefTRIAXone 1GM/50ML D5W 50 ML IV SCH (12:12)
[2021-02-04] MEDS: AZITHROMYCIN 500MG/ 250ML 250 ML IV SCH (12:12)
[2021-02-04] MEDS: ZINC SULFATE 220mg CAP or TAB PO SCH (12:41)
[2021-02-04] MEDS: ASPirin 81 mg TAB PO SCH (12:41)
[2021-02-04] MEDS: MULTIPLE VITAMIN TAB PO SCH (12:42)
[2021-02-04] MEDS: DIGOXIN 0.125 MG TAB PO SCH (12:42)
[2021-02-04] MEDS: CARVEDILOL 12.5 MG TAB PO SCH ×2 (12:42→22:07)
[2021-02-04] MEDS: ASCORBIC ACID 500 MG TAB PO SCH ×2 (12:43→22:05)
[2021-02-04 13:00] VITALS: BP 136/94
[2021-02-04 16:17] VITALS: BP 105/56
[2021-02-04 22:00] VITALS: BP 103/65
[2021-02-04] MEDS: DOXYCYCLINE 100 MG TAB/CAP PO SCH (22:05)
[2021-02-04] MEDS: ATORVASTATIN 20 MG TAB PO SCH (22:06)
[2021-02-05 05:00] VITALS: BP 124/71
[2021-02-05] MEDS: SODIUM CHLOR 0.9% PF (SALINE LOCK) 10ML VIAL/SYR IV SCH ×3 (06:08→21:58)
[2021-02-05] MEDS: ACCU-CHEK COMFORT CURVE STRIP VI SCH ×4 (06:48→22:01)
[2021-02-05] MEDS: InsuLIN REG 1unit/0.01ml Soln (100units/ml) SC SCH ×4 (06:49→22:17)
[2021-02-05 07:11] LABS: Basophils # (auto) 0.1 10 ^3/uL (0-0.2); Basophils % (auto) 1.2 % (0.0-2.0); Eosinophils # (auto) 0.4 10 ^3/uL (0-0.8); Eosinophils % (auto) 6.7 % (0.0-7.0); Hematocrit 42.1 % (41.0-53.0); Hemoglobin 13.6 g/dL (13.5-17.5); Lymphocytes # (auto) 1.9 10 ^3/uL (0.4-5.4); Lymphocytes % (auto) 29.3 % (10.0-50.0); Mean Corpuscular Hemoglobin 29.4 pg (28.0-32.0); Mean Corpuscular Hgb Conc. 32.4 g/dL (32.0-36.0); Mean Corpuscular Volume 90.5 fL (80.0-100.0); Monocytes # (auto) 0.9 10 ^3/uL (0-1.3); Monocytes % (auto) 13.1 % (0.0-12.0); Neutrophils # (auto) 3.2 10 ^3/uL (1.6-8.6); Neutrophils % (auto) 49.7 % (37.0-80.0); Red Blood Cells 4.65 10^6/uL (4.5-5.90); Red Cell Distribution Width 15.3 % (11.8-14.3); White Blood Cell 6.5 10^3/uL (4.4-10.8)
[2021-02-05 07:30] LABS: BUN/Creatinine Ratio 12.3; Calcium 8.8 mg/dL (8.5-10.1); Potassium 4.2 mmol/L (3.5-5.1)
[2021-02-05 08:47] VITALS: BP 98/45
[2021-02-05] MEDS: cefTRIAXone 1GM/50ML D5W 50 ML IV SCH (09:32)
[2021-02-05] MEDS: CARVEDILOL 12.5 MG TAB PO SCH (10:00)
[2021-02-05] MEDS: DIGOXIN 0.125 MG TAB PO SCH (10:00)
[2021-02-05] MEDS: ASPirin 81 mg TAB PO SCH (10:00)
[2021-02-05] MEDS: HEPARIN SODIUM (PORCINE) 5000 UNITS/ML 1ML VIAL SC SCH ×2 (10:00→21:59)
[2021-02-05] MEDS: FUROSEMIDE 40 MG/4 ML VIAL IV SCH ×2 (10:00→21:58)
[2021-02-05] MEDS: MULTIPLE VITAMIN TAB PO SCH (10:00)
[2021-02-05] MEDS: DOXYCYCLINE 100 MG TAB/CAP PO SCH ×2 (11:40→21:58)
[2021-02-05] MEDS: FAMOTIDINE (10MG/ML) 2ML VL IV SCH (11:40)
[2021-02-05] MEDS: ASCORBIC ACID 500 MG TAB PO SCH ×2 (11:40→21:59)
[2021-02-05] MEDS: ZINC SULFATE 220mg CAP or TAB PO SCH (11:42)
[2021-02-05 11:56] VITALS: BP 100/74
[2021-02-05 16:47] VITALS: BP 125/67
[2021-02-05] MEDS: ATORVASTATIN 20 MG TAB PO SCH (21:58)
[2021-02-05 22:00] VITALS: BP 98/71
[2021-02-05] MEDS: MUPIROCIN 2% OINT 15gm or 22gm EACHNOSTRI SCH (22:00)
[2021-02-06 05:00] VITALS: BP_SYST 108; BP_SYST 93; BP_DIAS 65; BP_DIAS 81
[2021-02-06 06:15] LABS: Basophils # (auto) 0.1 10 ^3/uL (0-0.2); Basophils % (auto) 1.1 % (0.0-2.0); Eosinophils # (auto) 0.4 10 ^3/uL (0-0.8); Eosinophils % (auto) 6.6 % (0.0-7.0); Hemoglobin 13.6 g/dL (13.5-17.5); Lymphocytes % (auto) 32.1 % (10.0-50.0); Mean Corpuscular Hemoglobin 29.3 pg (28.0-32.0); Mean Corpuscular Hgb Conc. 33.1 g/dL (32.0-36.0); Mean Corpuscular Volume 88.5 fL (80.0-100.0); Monocytes # (auto) 0.7 10 ^3/uL (0-1.3); Monocytes % (auto) 11.6 % (0.0-12.0); Neutrophils # (auto) 3.1 10 ^3/uL (1.6-8.6); Neutrophils % (auto) 48.6 % (37.0-80.0); Nucleated Red Blood Cells % 0.1 %; Red Blood Cells 4.63 10^6/uL (4.5-5.90); Red Cell Distribution Width 15.3 % (11.8-14.3); White Blood Cell 6.3 10^3/uL (4.4-10.8)
[2021-02-06 06:21] LABS: Calcium 8.9 mg/dL (8.5-10.1); Potassium 4.3 mmol/L (3.5-5.1)
[2021-02-06 06:25] LABS: BUN/Creatinine Ratio 14.1
[2021-02-06] MEDS: ACCU-CHEK COMFORT CURVE STRIP VI SCH ×4 (06:48→21:36)
[2021-02-06] MEDS: SODIUM CHLOR 0.9% PF (SALINE LOCK) 10ML VIAL/SYR IV SCH ×3 (06:48→21:35)
[2021-02-06] MEDS: InsuLIN REG 1unit/0.01ml Soln (100units/ml) SC SCH ×4 (06:57→22:26)
[2021-02-06 09:32] VITALS: BP 117/75
[2021-02-06] MEDS: FUROSEMIDE 40 MG/4 ML VIAL IV SCH (09:32)
[2021-02-06] MEDS: MUPIROCIN 2% OINT 15gm or 22gm EACHNOSTRI SCH ×2 (09:32→21:35)
[2021-02-06] MEDS: cefTRIAXone 1GM/50ML D5W 50 ML IV SCH (09:32)
[2021-02-06] MEDS: ZINC SULFATE 220mg CAP or TAB PO SCH (09:34)
[2021-02-06] MEDS: ASCORBIC ACID 500 MG TAB PO SCH ×2 (09:34→21:35)
[2021-02-06] MEDS: ASPirin 81 mg TAB PO SCH (09:34)
[2021-02-06] MEDS: MULTIPLE VITAMIN TAB PO SCH (09:35)
[2021-02-06] MEDS: DOXYCYCLINE 100 MG TAB/CAP PO SCH ×2 (09:35→21:35)
[2021-02-06] MEDS: DIGOXIN 0.125 MG TAB PO SCH (09:43)
[2021-02-06] MEDS: FAMOTIDINE (10MG/ML) 2ML VL IV SCH (09:49)
[2021-02-06] MEDS: HEPARIN SODIUM (PORCINE) 5000 UNITS/ML 1ML VIAL SC SCH ×2 (09:59→21:36)
[2021-02-06] MEDS ORDERED: CARVEDILOL 12.5 MG TAB PO SCH (10:00)
[2021-02-06 13:00] VITALS: BP 132/98
[2021-02-06 16:44] VITALS: BP 130/85
[2021-02-06] MEDS: ATORVASTATIN 20 MG TAB PO SCH (21:35)
[2021-02-06] MEDS: CARVEDILOL 12.5 MG TAB PO SCH (21:46)
[2021-02-06 22:00] VITALS: BP 142/105
[2021-02-07 05:30] VITALS: BP 116/71
[2021-02-07] MEDS: InsuLIN REG 1unit/0.01ml Soln (100units/ml) SC SCH ×4 (06:00→23:40)
[2021-02-07] MEDS: ACCU-CHEK COMFORT CURVE STRIP VI SCH ×4 (06:05→22:59)
[2021-02-07] MEDS: SODIUM CHLOR 0.9% PF (SALINE LOCK) 10ML VIAL/SYR IV SCH ×3 (06:05→22:56)
[2021-02-07 08:47] LABS: Anion Gap 6 (5-15); BUN/Creatinine Ratio 14.2; Blood Urea Nitrogen 47 mg/dL (7-18); Calcium 8.8 mg/dL (8.5-10.1); Carbon Dioxide 29 mmol/L (21-32); Chloride 100 mmol/L (98-107); GFR African American 25 mL/min; GFR Non-African American 21 mL/min; Glucose 125 mg/dL (74-106); Sodium 135 mmol/L (136-145)
[2021-02-07 09:00] VITALS: BP 112/78
[2021-02-07 09:00] LABS: Potassium 5.7 mmol/L (3.5-5.1)
[2021-02-07] MEDS ORDERED: HEPARIN SODIUM (PORCINE) 5000 UNITS/ML 1ML VIAL ONE (10:46)
[2021-02-07] MEDS: cefTRIAXone 1GM/50ML D5W 50 ML IV SCH (10:56)
[2021-02-07] MEDS: FUROSEMIDE 100 MG/10ML VIAL IV SCH (10:57)
[2021-02-07] MEDS: FAMOTIDINE (10MG/ML) 2ML VL IV SCH (10:58)
[2021-02-07] MEDS: ASCORBIC ACID 500 MG TAB PO SCH ×2 (10:58→22:58)
[2021-02-07] MEDS: ASPirin 81 mg TAB PO SCH (10:58)
[2021-02-07] MEDS: DOXYCYCLINE 100 MG TAB/CAP PO SCH ×2 (10:58→22:58)
[2021-02-07] MEDS: ZINC SULFATE 220mg CAP or TAB PO SCH (10:58)
[2021-02-07] MEDS: MUPIROCIN 2% OINT 15gm or 22gm EACHNOSTRI SCH ×2 (10:59→22:56)
[2021-02-07] MEDS: DIGOXIN 0.125 MG TAB PO SCH (10:59)
[2021-02-07] MEDS: CARVEDILOL 12.5 MG TAB PO SCH ×2 (11:00→22:57)
[2021-02-07] MEDS: HEPARIN SODIUM (PORCINE) 5000 UNITS/ML 1ML VIAL SC SCH ×2 (11:27→22:00)
[2021-02-07] MEDS: MULTIPLE VITAMIN TAB PO SCH (11:28)
[2021-02-07] MEDS ORDERED: ALBUTEROL SULF 2.5 MG/0.5ML(0.5%) NEB SOLN NEB ONE (12:45)
[2021-02-07] MEDS ORDERED: SODIUM ZIRCONIUM CYCL 10 GM PAK PO ONE (12:45)
[2021-02-07 13:00] VITALS: BP 107/81
[2021-02-07] MEDS ORDERED: DEXTROSE (50%) 50ML SYRG IV ONE (13:15)
[2021-02-07] MEDS ORDERED: InsuLIN REG 1unit/0.01ml Soln (100units/ml) IV ONE (13:15)
[2021-02-07 17:00] VITALS: BP 117/60
[2021-02-07 21:38] VITALS: BP 139/99
[2021-02-07] MEDS: ATORVASTATIN 20 MG TAB PO SCH (22:58)
[2021-02-07] MEDS: SODIUM ZIRCONIUM CYCL 10 GM PAK PO SCH (22:58)
[2021-02-08 05:30] VITALS: BP 158/79
[2021-02-08] MEDS: ACCU-CHEK COMFORT CURVE STRIP VI SCH ×4 (06:09→22:18)
[2021-02-08] MEDS: SODIUM CHLOR 0.9% PF (SALINE LOCK) 10ML VIAL/SYR IV SCH ×3 (06:10→22:06)
[2021-02-08] MEDS: SODIUM ZIRCONIUM CYCL 10 GM PAK PO SCH ×3 (06:10→22:00)
[2021-02-08 06:59] LABS: BUN/Creatinine Ratio 17.9; Calcium 8.9 mg/dL (8.5-10.1); Potassium 3.8 mmol/L (3.5-5.1)
[2021-02-08] MEDS: FAMOTIDINE (10MG/ML) 2ML VL IV SCH (09:53)
[2021-02-08] MEDS: cefTRIAXone 1GM/50ML D5W 50 ML IV SCH (09:53)
[2021-02-08] MEDS: MULTIPLE VITAMIN TAB PO SCH (09:54)
[2021-02-08] MEDS: FUROSEMIDE 100 MG/10ML VIAL IV SCH (09:54)
[2021-02-08] MEDS: DIGOXIN 0.125 MG TAB PO SCH (09:54)
[2021-02-08] MEDS: DOXYCYCLINE 100 MG TAB/CAP PO SCH ×2 (09:54→22:01)
[2021-02-08] MEDS: CARVEDILOL 12.5 MG TAB PO SCH ×2 (09:55→22:03)
[2021-02-08] MEDS: ASCORBIC ACID 500 MG TAB PO SCH ×2 (09:55→22:01)
[2021-02-08] MEDS: MUPIROCIN 2% OINT 15gm or 22gm EACHNOSTRI SCH ×2 (09:55→22:16)
[2021-02-08] MEDS: ZINC SULFATE 220mg CAP or TAB PO SCH (09:56)
[2021-02-08 10:26] VITALS: BP 154/64
[2021-02-08] MEDS: InsuLIN REG 1unit/0.01ml Soln (100units/ml) SC SCH ×3 (11:59→22:05)
[2021-02-08 13:00] VITALS: BP 130/90
[2021-02-08 17:00] VITALS: BP 125/85
[2021-02-08 20:00] VITALS: BP 146/89
[2021-02-08 22:00] VITALS: BP 146/89
[2021-02-08] MEDS: ATORVASTATIN 20 MG TAB PO SCH (22:01)
[2021-02-08 22:58] LABS: Protein, Urine 84.3 mg/dL (0.0-11.9)
[2021-02-09 04:00] VITALS: BP 136/92
[2021-02-09] MEDS: SODIUM ZIRCONIUM CYCL 10 GM PAK PO SCH (06:00)
[2021-02-09] MEDS: SODIUM CHLOR 0.9% PF (SALINE LOCK) 10ML VIAL/SYR IV SCH (06:34)
[2021-02-09] MEDS: InsuLIN REG 1unit/0.01ml Soln (100units/ml) SC SCH (06:39)
[2021-02-09] MEDS: ACCU-CHEK COMFORT CURVE STRIP VI SCH (06:40)
[2021-02-09] MEDS: ASCORBIC ACID 500 MG TAB PO SCH (09:56)
[2021-02-09] MEDS: MULTIPLE VITAMIN TAB PO SCH (09:59)
[2021-02-09] MEDS: DOXYCYCLINE 100 MG TAB/CAP PO SCH (09:59)
[2021-02-09] MEDS: DIGOXIN 0.125 MG TAB PO SCH (09:59)
[2021-02-09] MEDS: CARVEDILOL 12.5 MG TAB PO SCH (10:01)
[2021-02-09] MEDS: ZINC SULFATE 220mg CAP or TAB PO SCH (10:01)
[2021-02-09] MEDS: FUROSEMIDE 100 MG/10ML VIAL IV SCH (10:02)
[2021-02-09] MEDS: MUPIROCIN 2% OINT 15gm or 22gm EACHNOSTRI SCH (10:02)
[2021-02-09] MEDS: FAMOTIDINE (10MG/ML) 2ML VL IV SCH (10:02)
[2021-02-09] MEDS: cefTRIAXone 1GM/50ML D5W 50 ML IV SCH (10:03)
[2021-02-09] MEDS ORDERED: FUROSEMIDE 100 MG/10ML VIAL IV SCH (11:30)
== END 2021-02-09 12:20 | disposition left against medical advice (07) | DRG 139 ==
LOC: EDBD 00:03 → ER 00:07 → TELE 04:19 → TELE-WESTW 02-04 08:12
PROVIDERS: ADMIT Nurse Practitioner Family; ATTEND Internal Medicine
DX: J18.9 Pneumonia, unspecified organism (principal); J96.21 Acute and chronic respiratory failure with hypoxia; I50.43 Acute on chronic combined systolic (congestive) and diastolic (congestive) heart failure; N17.9 Acute kidney failure, unspecified; I42.8 Other cardiomyopathies; E88.09 Other disorders of plasma-protein metabolism, not elsewhere classified; J44.0 Chronic obstructive pulmonary disease with (acute) lower respiratory infection; J44.1 Chronic obstructive pulmonary disease with (acute) exacerbation; I13.0 Hypertensive heart and chronic kidney disease with heart failure and stage 1 through stage 4 chronic kidney disease, or unspecified chronic kidney disease; E11.22 Type 2 diabetes mellitus with diabetic chronic kidney disease; I48.91 Unspecified atrial fibrillation; Z91.14 Patient's other noncompliance with medication regimen; E78.5 Hyperlipidemia, unspecified; E87.6 Hypokalemia; G47.33 Obstructive sleep apnea (adult) (pediatric); E66.01 Morbid (severe) obesity due to excess calories; I25.10 Atherosclerotic heart disease of native coronary artery without angina pectoris; Z53.29 Procedure and treatment not carried out because of patient's decision for other reasons; Z20.822 Contact with and (suspected) exposure to COVID-19; J98.11 Atelectasis; N18.32 Chronic kidney disease, stage 3b; Z79.4 Long term (current) use of insulin; I25.2 Old myocardial infarction; Z79.899 Other long term (current) drug therapy; Z80.0 Family history of malignant neoplasm of digestive organs; Z82.49 Family history of ischemic heart disease and other diseases of the circulatory system; Z83.3 Family history of diabetes mellitus; Z91.19 Patient's noncompliance with other medical treatment and regimen; Z68.42 Body mass index [BMI] 45.0-49.9, adult
CPT/HCPCS: 36415; 71045; 76775; 76856; 80048; 80053; 80061; 82306; 82570; 82962; 83036; 83735; 83880; 84156; 84300; 84484; 85025; 85610; 87081; 87426; 93005; 93970; 94640; 96374; 96375; 96376; 99291; G0378; J0696; J1815; J3490

== ENCOUNTER 2021-02-20 02:55 | Inpatient (IN) | payer OTHER ==
[~2021-02-20] VITALS: Ht 180.3 cm; Wt 166.9 kg
[~2021-02-20 02:55] MED LIST changes: +APIX2.5T PO; -FURO1TAB31 PO; +FURO80TA3 PO
[2021-02-20] MEDS ORDERED: HYDROmorphone HCL 2 MG/ML VL IV ONE (03:45)
[2021-02-20] MEDS ORDERED: ONDANSETRON HCL 4 MG/2 ML VIAL IV ONE (03:45)
[2021-02-20] MEDS ORDERED: dilTIAZem 25 MG/5 ML VIAL IV ONE (05:00)
[2021-02-20 05:02] LABS: Basophils # (auto) 0.1 10 ^3/uL (0-0.2); Basophils % (auto) 0.9 % (0.0-2.0); Eosinophils # (auto) 0.8 10 ^3/uL (0-0.8); Eosinophils % (auto) 10.1 % (0.0-7.0); Hematocrit 41.6 % (41.0-53.0); Hemoglobin 13.6 g/dL (13.5-17.5); Lymphocytes % (auto) 24.5 % (10.0-50.0); Mean Corpuscular Hgb Conc. 32.8 g/dL (32.0-36.0); Mean Corpuscular Volume 88.4 fL (80.0-100.0); Monocytes # (auto) 0.9 10 ^3/uL (0-1.3); Monocytes % (auto) 11.6 % (0.0-12.0); Neutrophils # (auto) 4.3 10 ^3/uL (1.6-8.6); Neutrophils % (auto) 52.9 % (37.0-80.0); Red Cell Distribution Width 15.7 % (11.8-14.3); White Blood Cell 8.1 10^3/uL (4.4-10.8)
[2021-02-20 05:13] LABS: INR 1.22 (0.9-1.15)
[2021-02-20 05:19] LABS: Calcium 8.7 mg/dL (8.5-10.1); Potassium 3.6 mmol/L (3.5-5.1)
[2021-02-20 05:21] LABS: Albumin 2.9 g/dL (3.4-5.0); BUN/Creatinine Ratio 14.4
[2021-02-20 05:28] LABS: Bilirubin, Total 1.7 mg/dL (0.2-1.0); Total Protein 7.6 g/dL (6.4-8.2)
[2021-02-20] MEDS ORDERED: NITROGLYCERIN 0.4 MG SL TAB SL PRN (08:30)
[2021-02-20] MEDS ORDERED: ONDANSETRON HCL 4 MG/2 ML VIAL IV PRN (08:30)
[2021-02-20] MEDS ORDERED: MORPHINE SULFATE INJECTION 2 MG/ML SYRG IV PRN (08:30)
[2021-02-20] MEDS: FUROSEMIDE 40 MG/4 ML VIAL IV SCH ×2 (10:08→22:25)
[2021-02-20] MEDS: MORPHINE SULFATE INJECTION 2 MG/ML SYRG IV PRN ×2 (10:09→22:32)
[2021-02-20 10:16] LABS: Urine Amorphous Crystal FEW /hpf (None Seen); Urine Bacteria FEW /hpf (None Seen); Urine Blood 3+ /uL (Negative); Urine Specific Gravity 1.018 (1.001-1.035); Urine WBC 22 /hpf (0 - 3)
[2021-02-20 11:15] LABS: Amphetamine Screen, Urine NEGATIVE (NEGATIVE); Barbiturate Scree,Urine NEGATIVE (NEGATIVE); Benzodiazephine Screen, Urine NEGATIVE (NEGATIVE); Cannabinoid Screen, Urine NEGATIVE (NEGATIVE); Cocaine Screen, Urine NEGATIVE (NEGATIVE); Opiate Scree,Urine NEGATIVE (NEGATIVE); Phencyclidine Screen, Urine NEGATIVE (NEGATIVE)
[2021-02-20 16:19] VITALS: BP 158/99
[2021-02-20] MEDS ORDERED: DEXTROSE (50%) 50ML SYRG IV PRN (18:45)
[2021-02-20] MEDS: cefTRIAXone 1GM/50ML D5W 50 ML IV SCH (18:53)
[2021-02-20 20:00] VITALS: BP 158/85
[2021-02-20 22:00] VITALS: BP 158/85
[2021-02-20] MEDS: APIXABAN 2.5 MG TAB PO SCH (22:26)
[2021-02-20] MEDS: ATORVASTATIN 20 MG TAB PO SCH (22:26)
[2021-02-20] MEDS: ACCU-CHEK COMFORT CURVE STRIP VI SCH (22:26)
[2021-02-20] MEDS: InsuLIN REG 1unit/0.01ml Soln (100units/ml) SC SCH (22:28)
[2021-02-21 05:00] VITALS: BP 126/79
[2021-02-21 05:11] LABS: Basophils # (auto) 0.1 10 ^3/uL (0-0.2); Eosinophils # (auto) 1.1 10 ^3/uL (0-0.8); Eosinophils % (auto) 13.7 % (0.0-7.0); Hematocrit 39.8 % (41.0-53.0); Hemoglobin 13.2 g/dL (13.5-17.5); Lymphocytes # (auto) 1.7 10 ^3/uL (0.4-5.4); Mean Corpuscular Hemoglobin 29.7 pg (28.0-32.0); Mean Corpuscular Hgb Conc. 33.1 g/dL (32.0-36.0); Mean Corpuscular Volume 89.9 fL (80.0-100.0); Monocytes % (auto) 12.6 % (0.0-12.0); Neutrophils # (auto) 4.1 10 ^3/uL (1.6-8.6); Neutrophils % (auto) 51.7 % (37.0-80.0); Nucleated Red Blood Cells % 0.3 %; Red Blood Cells 4.43 10^6/uL (4.5-5.90); Red Cell Distribution Width 15.6 % (11.8-14.3)
[2021-02-21 05:44] LABS: Albumin 2.6 g/dL (3.4-5.0); BUN/Creatinine Ratio 15.8; Calcium 8.9 mg/dL (8.5-10.1)
[2021-02-21 05:53] LABS: Bilirubin, Total 1.3 mg/dL (0.2-1.0); Total Protein 7.2 g/dL (6.4-8.2)
[2021-02-21 05:55] LABS: Potassium 5.2 mmol/L (3.5-5.1)
[2021-02-21] MEDS: ACCU-CHEK COMFORT CURVE STRIP VI SCH ×4 (06:29→21:41)
[2021-02-21] MEDS: InsuLIN REG 1unit/0.01ml Soln (100units/ml) SC SCH ×4 (06:32→21:56)
[2021-02-21] MEDS ORDERED: ALPRAZolam 0.5 MG TAB PO PRN (06:45)
[2021-02-21 09:00] VITALS: BP 120/81
[2021-02-21] MEDS: cefTRIAXone 1GM/50ML D5W 50 ML IV SCH (09:05)
[2021-02-21] MEDS: APIXABAN 2.5 MG TAB PO SCH (09:06)
[2021-02-21] MEDS: ENALAPRIL MALEATE 10 MG TAB PO SCH (09:07)
[2021-02-21] MEDS: NIFEdipine ER 30 MG TAB PO SCH (09:08)
[2021-02-21] MEDS: MORPHINE SULFATE INJECTION 2 MG/ML SYRG IV PRN ×2 (09:15→23:43)
[2021-02-21] MEDS ORDERED: FUROSEMIDE 40 MG/4 ML VIAL IV SCH (10:00)
[2021-02-21 13:00] VITALS: BP 114/73
[2021-02-21 17:00] VITALS: BP 139/96
[2021-02-21] MEDS: FUROSEMIDE 100 MG/10ML VIAL IV SCH (18:26)
[2021-02-21 20:00] VITALS: BP 120/79
[2021-02-21] MEDS: ATORVASTATIN 20 MG TAB PO SCH (21:41)
[2021-02-21 22:00] VITALS: BP 120/79
[2021-02-22 05:00] VITALS: BP 147/75
[2021-02-22 06:05] LABS: Hematocrit 37.8 % (41.0-53.0); Hemoglobin 12.6 g/dL (13.5-17.5); Mean Corpuscular Hemoglobin 29.4 pg (28.0-32.0); Mean Corpuscular Hgb Conc. 33.3 g/dL (32.0-36.0); Mean Corpuscular Volume 88.4 fL (80.0-100.0); Red Blood Cells 4.28 10^6/uL (4.5-5.90); Red Cell Distribution Width 15.3 % (11.8-14.3); White Blood Cell 7.7 10^3/uL (4.4-10.8)
[2021-02-22 06:07] LABS: Basophils % (manual) 0 (0.0-2.0); Blast Cells 0; Metamyelocytes % 0; Myelocytes % 0; Promyelocytes % 0; Reactive Lymphocytes 0
[2021-02-22] MEDS: FUROSEMIDE 100 MG/10ML VIAL IV SCH ×2 (06:12→17:28)
[2021-02-22 06:39] LABS: Potassium 3.8 mmol/L (3.5-5.1)
[2021-02-22] MEDS: ACCU-CHEK COMFORT CURVE STRIP VI SCH ×4 (06:39→22:00)
[2021-02-22] MEDS: InsuLIN REG 1unit/0.01ml Soln (100units/ml) SC SCH ×4 (06:39→22:00)
[2021-02-22 06:43] LABS: Albumin 2.5 g/dL (3.4-5.0); BUN/Creatinine Ratio 15.8; Calcium 8.8 mg/dL (8.5-10.1)
[2021-02-22 06:45] LABS: Bilirubin, Total 1.1 mg/dL (0.2-1.0); Total Protein 7.1 g/dL (6.4-8.2)
[2021-02-22 07:00] LABS: Band Neutrophils % (manual) 3; Eosinophils % (manual) 17 (0-7); Lymphocytes % (manual) 18 (10.0-50.0); Monocytes % (manual) 6 (0-12)
[2021-02-22] MEDS: ENALAPRIL MALEATE 10 MG TAB PO SCH (08:19)
[2021-02-22] MEDS: NIFEdipine ER 30 MG TAB PO SCH (08:19)
[2021-02-22] MEDS: cefTRIAXone 1GM/50ML D5W 50 ML IV SCH (08:20)
[2021-02-22] MEDS: MORPHINE SULFATE INJECTION 2 MG/ML SYRG IV PRN ×2 (08:21→18:29)
[2021-02-22] MEDS: ENOXAPARIN SOD 40 MG/0.4 ML SYRINGE SC SCH (08:28)
[2021-02-22 09:00] VITALS: BP 133/72
[2021-02-22] MEDS ORDERED: ASPirin-EC 325mg tab PO SCH (10:00)
[2021-02-22 13:00] VITALS: BP 145/69
[2021-02-22 17:00] VITALS: BP 115/69
[2021-02-22 20:00] VITALS: BP 115/69
[2021-02-22 22:00] VITALS: BP 106/78
[2021-02-22] MEDS: ATORVASTATIN 20 MG TAB PO SCH (23:05)
[2021-02-23 05:00] VITALS: BP 127/91
[2021-02-23 05:54] LABS: Hemoglobin 12.7 g/dL (13.5-17.5); Mean Corpuscular Hemoglobin 29.1 pg (28.0-32.0); Mean Corpuscular Hgb Conc. 32.5 g/dL (32.0-36.0); Mean Corpuscular Volume 89.6 fL (80.0-100.0); Red Blood Cells 4.36 10^6/uL (4.5-5.90); White Blood Cell 7.3 10^3/uL (4.4-10.8)
[2021-02-23 06:11] LABS: Band Neutrophils % (manual) 0; Basophils % (manual) 0 (0.0-2.0); Blast Cells 0; Metamyelocytes % 0; Myelocytes % 0; Promyelocytes % 0; Reactive Lymphocytes 0
[2021-02-23] MEDS: FUROSEMIDE 100 MG/10ML VIAL IV SCH ×2 (06:27→18:07)
[2021-02-23 06:41] LABS: Albumin 2.6 g/dL (3.4-5.0); Calcium 8.9 mg/dL (8.5-10.1); Potassium 3.5 mmol/L (3.5-5.1)
[2021-02-23 06:43] LABS: BUN/Creatinine Ratio 16.6
[2021-02-23 06:46] LABS: Bilirubin, Total 1.1 mg/dL (0.2-1.0)
[2021-02-23] MEDS: InsuLIN REG 1unit/0.01ml Soln (100units/ml) SC SCH ×4 (06:53→21:35)
[2021-02-23 07:22] LABS: Eosinophils % (manual) 6 (0-7); Lymphocytes % (manual) 20 (10.0-50.0); Monocytes % (manual) 10 (0-12)
[2021-02-23] MEDS: ACCU-CHEK COMFORT CURVE STRIP VI SCH ×4 (07:22→21:29)
[2021-02-23 09:00] VITALS: BP 127/88
[2021-02-23] MEDS: NIFEdipine ER 30 MG TAB PO SCH (09:16)
[2021-02-23] MEDS: cefTRIAXone 1GM/50ML D5W 50 ML IV SCH (09:16)
[2021-02-23] MEDS: ENALAPRIL MALEATE 10 MG TAB PO SCH (09:17)
[2021-02-23] MEDS: MORPHINE SULFATE INJECTION 2 MG/ML SYRG IV PRN ×2 (09:17→20:28)
[2021-02-23] MEDS: ENOXAPARIN SOD 40 MG/0.4 ML SYRINGE SC SCH (09:17)
[2021-02-23 12:00] VITALS: BP 131/80
[2021-02-23 16:36] LABS: Creatinine, Urine 106 mg/dL (30.0-125.0); Sodium Urine 38 mmol/L (40-220)
[2021-02-23 16:45] LABS: Protein, Urine 39.4 mg/dL (0.0-11.9)
[2021-02-23 17:00] VITALS: BP 139/78
[2021-02-23 20:00] VITALS: BP 108/72
[2021-02-23] MEDS: ATORVASTATIN 20 MG TAB PO SCH (21:28)
[2021-02-23 22:00] VITALS: BP 108/72
[2021-02-24] MEDS: MORPHINE SULFATE INJECTION 2 MG/ML SYRG IV PRN ×2 (04:15→12:49)
[2021-02-24 05:00] VITALS: BP 112/82
[2021-02-24] MEDS: ACCU-CHEK COMFORT CURVE STRIP VI SCH ×4 (06:16→22:03)
[2021-02-24] MEDS: FUROSEMIDE 100 MG/10ML VIAL IV SCH ×2 (06:19→18:52)
[2021-02-24] MEDS: InsuLIN REG 1unit/0.01ml Soln (100units/ml) SC SCH ×4 (06:26→22:05)
[2021-02-24 06:48] LABS: Potassium 3.4 mmol/L (3.5-5.1)
[2021-02-24 06:52] LABS: Hematocrit 38.8 % (41.0-53.0); Hemoglobin 12.7 g/dL (13.5-17.5); Mean Corpuscular Hemoglobin 29.1 pg (28.0-32.0); Mean Corpuscular Hgb Conc. 32.8 g/dL (32.0-36.0); Mean Corpuscular Volume 88.7 fL (80.0-100.0); Red Blood Cells 4.38 10^6/uL (4.5-5.90); Red Cell Distribution Width 15.6 % (11.8-14.3); White Blood Cell 7.4 10^3/uL (4.4-10.8)
[2021-02-24 06:57] LABS: Albumin 2.6 g/dL (3.4-5.0); BUN/Creatinine Ratio 15.8; Bilirubin, Total 1.1 mg/dL (0.2-1.0); Calcium 8.6 mg/dL (8.5-10.1)
[2021-02-24 07:14] LABS: Basophils % (manual) 0 (0.0-2.0); Blast Cells 0; Metamyelocytes % 0; Monocytes % (manual) 0 (0-12); Myelocytes % 0; Promyelocytes % 0; Reactive Lymphocytes 0
[2021-02-24 09:22] LABS: Band Neutrophils % (manual) 2; Lymphocytes % (manual) 19 (10.0-50.0)
[2021-02-24 09:23] LABS: Eosinophils % (manual) 17 (0-7)
[2021-02-24] MEDS: cefTRIAXone 1GM/50ML D5W 50 ML IV SCH (10:30)
[2021-02-24] MEDS: ENALAPRIL MALEATE 10 MG TAB PO SCH (10:31)
[2021-02-24] MEDS: NIFEdipine ER 30 MG TAB PO SCH (10:31)
[2021-02-24] MEDS: ENOXAPARIN SOD 40 MG/0.4 ML SYRINGE SC SCH (10:32)
[2021-02-24] MEDS ORDERED: POTASSIUM CHL 20 Meq TABLET PO ONE (12:15)
[2021-02-24] MEDS: METOPROLOL TARTRATE 25 MG TAB PO SCH ×2 (12:32→22:04)
[2021-02-24 12:42] LABS: Magnesium 2.4 mg/dL (1.6-2.6)
[2021-02-24 22:00] VITALS: BP 110/68
[2021-02-24] MEDS: ATORVASTATIN 20 MG TAB PO SCH (22:03)
[2021-02-25 05:00] VITALS: BP 116/91
[2021-02-25] MEDS: FUROSEMIDE 100 MG/10ML VIAL IV SCH ×2 (05:55→18:06)
[2021-02-25] MEDS: InsuLIN REG 1unit/0.01ml Soln (100units/ml) SC SCH ×4 (06:42→22:00)
[2021-02-25] MEDS: ACCU-CHEK COMFORT CURVE STRIP VI SCH ×4 (06:43→22:00)
[2021-02-25] MEDS: ENOXAPARIN SOD 40 MG/0.4 ML SYRINGE SC SCH (08:32)
[2021-02-25] MEDS: cefTRIAXone 1GM/50ML D5W 50 ML IV SCH (08:36)
[2021-02-25] MEDS: CARVEDILOL 3.125 MG TAB PO SCH ×2 (08:37→22:01)
[2021-02-25] MEDS: ENALAPRIL MALEATE 10 MG TAB PO SCH (08:38)
[2021-02-25] MEDS: NIFEdipine ER 30 MG TAB PO SCH (08:38)
[2021-02-25 09:00] VITALS: BP 127/82
[2021-02-25 09:13] LABS: Albumin 2.6 g/dL (3.4-5.0); BUN/Creatinine Ratio 17.6; Calcium 8.9 mg/dL (8.5-10.1); Potassium 3.3 mmol/L (3.5-5.1)
[2021-02-25 09:16] LABS: Bilirubin, Total 1.2 mg/dL (0.2-1.0); Total Protein 7.2 g/dL (6.4-8.2)
[2021-02-25] MEDS ORDERED: POTASSIUM CHL 20 Meq TABLET PO ONE (12:45)
[2021-02-25 13:00] VITALS: BP 132/74
[2021-02-25 17:00] VITALS: BP 117/78
[2021-02-25] MEDS: MORPHINE SULFATE INJECTION 2 MG/ML SYRG IV PRN (18:06)
[2021-02-25 20:00] VITALS: BP 128/82
[2021-02-25 22:00] VITALS: BP 128/82
[2021-02-25] MEDS: ATORVASTATIN 20 MG TAB PO SCH (22:00)
[2021-02-26] MEDS: MORPHINE SULFATE INJECTION 2 MG/ML SYRG IV PRN ×2 (00:19→14:54)
[2021-02-26 05:00] VITALS: BP 130/85
[2021-02-26] MEDS: FUROSEMIDE 100 MG/10ML VIAL IV SCH ×2 (05:50→18:00)
[2021-02-26] MEDS: ACCU-CHEK COMFORT CURVE STRIP VI SCH ×4 (06:56→22:10)
[2021-02-26] MEDS: InsuLIN REG 1unit/0.01ml Soln (100units/ml) SC SCH ×4 (06:57→22:12)
[2021-02-26 09:00] VITALS: BP 134/78
[2021-02-26] MEDS: POTASSIUM CHL 20 Meq TABLET PO SCH (09:53)
[2021-02-26] MEDS: ENOXAPARIN SOD 40 MG/0.4 ML SYRINGE SC SCH (09:53)
[2021-02-26] MEDS: cefTRIAXone 1GM/50ML D5W 50 ML IV SCH (09:53)
[2021-02-26] MEDS: ENALAPRIL MALEATE 10 MG TAB PO SCH (09:55)
[2021-02-26] MEDS: NIFEdipine ER 30 MG TAB PO SCH (09:55)
[2021-02-26] MEDS: CARVEDILOL 3.125 MG TAB PO SCH ×2 (09:56→22:14)
[2021-02-26 12:23] VITALS: BP 115/75
[2021-02-26 20:00] VITALS: BP 114/64
[2021-02-26 22:00] VITALS: BP 114/74
[2021-02-26] MEDS: ATORVASTATIN 20 MG TAB PO SCH (22:13)
[2021-02-27] MEDS: MORPHINE SULFATE INJECTION 2 MG/ML SYRG IV PRN ×3 (04:21→23:24)
[2021-02-27 05:00] VITALS: BP 133/70
[2021-02-27] MEDS: FUROSEMIDE 100 MG/10ML VIAL IV SCH ×2 (05:57→18:25)
[2021-02-27] MEDS ORDERED: FUROSEMIDE 100 MG/10ML VIAL IV SCH (06:00)
[2021-02-27] MEDS: ACCU-CHEK COMFORT CURVE STRIP VI SCH ×4 (06:24→22:07)
[2021-02-27] MEDS: InsuLIN REG 1unit/0.01ml Soln (100units/ml) SC SCH ×4 (06:46→22:00)
[2021-02-27 06:51] LABS: Magnesium 2.1 mg/dL (1.6-2.6); Potassium 3.3 mmol/L (3.5-5.1)
[2021-02-27] MEDS: cefTRIAXone 1GM/50ML D5W 50 ML IV SCH (08:14)
[2021-02-27] MEDS: ENOXAPARIN SOD 40 MG/0.4 ML SYRINGE SC SCH (08:14)
[2021-02-27] MEDS: POTASSIUM CHL 20 Meq TABLET PO SCH ×2 (08:15→17:14)
[2021-02-27 09:30] VITALS: BP 107/77
[2021-02-27] MEDS: CARVEDILOL 3.125 MG TAB PO SCH ×2 (09:49→22:05)
[2021-02-27] MEDS: NIFEdipine ER 30 MG TAB PO SCH (09:49)
[2021-02-27] MEDS: ENALAPRIL MALEATE 10 MG TAB PO SCH (09:51)
[2021-02-27 16:30] VITALS: BP 109/69
[2021-02-27 22:00] VITALS: BP 111/78
[2021-02-27] MEDS: ATORVASTATIN 20 MG TAB PO SCH (22:00)
[2021-02-28 05:00] VITALS: BP 101/70
[2021-02-28] MEDS: FUROSEMIDE 100 MG/10ML VIAL IV SCH ×2 (06:00→17:36)
[2021-02-28] MEDS: InsuLIN REG 1unit/0.01ml Soln (100units/ml) SC SCH ×4 (06:23→22:00)
[2021-02-28] MEDS: ACCU-CHEK COMFORT CURVE STRIP VI SCH ×4 (06:23→22:30)
[2021-02-28] MEDS: MORPHINE SULFATE INJECTION 2 MG/ML SYRG IV PRN ×3 (06:31→23:45)
[2021-02-28 09:00] VITALS: BP 121/80
[2021-02-28] MEDS: cefTRIAXone 1GM/50ML D5W 50 ML IV SCH (09:00)
[2021-02-28 09:38] LABS: Basophils # (auto) 0.1 10 ^3/uL (0-0.2); Basophils % (auto) 0.9 % (0.0-2.0); Eosinophils # (auto) 1.2 10 ^3/uL (0-0.8); Hematocrit 39.1 % (41.0-53.0); Hemoglobin 12.7 g/dL (13.5-17.5); Mean Corpuscular Hemoglobin 28.4 pg (28.0-32.0); Mean Corpuscular Hgb Conc. 32.4 g/dL (32.0-36.0); Mean Corpuscular Volume 87.8 fL (80.0-100.0); Monocytes # (auto) 0.8 10 ^3/uL (0-1.3); Monocytes % (auto) 12.3 % (0.0-12.0); Nucleated Red Blood Cells % 0.1 %; Red Blood Cells 4.46 10^6/uL (4.5-5.90); White Blood Cell 6.8 10^3/uL (4.4-10.8)
[2021-02-28 09:43] LABS: Neutrophils % (auto) 50.7 % (37.0-80.0)
[2021-02-28 09:44] LABS: Eosinophils % (auto) 14.4 % (0.0-7.0); Lymphocytes # (auto) 1.5 10 ^3/uL (0.4-5.4); Lymphocytes % (auto) 21.7 % (10.0-50.0); Neutrophils # (auto) 3.5 10 ^3/uL (1.6-8.6)
[2021-02-28] MEDS: ENOXAPARIN SOD 40 MG/0.4 ML SYRINGE SC SCH (10:00)
[2021-02-28] MEDS: ENALAPRIL MALEATE 10 MG TAB PO SCH (10:00)
[2021-02-28] MEDS: POTASSIUM CHL 20 Meq TABLET PO SCH (10:00)
[2021-02-28] MEDS: CARVEDILOL 3.125 MG TAB PO SCH ×2 (10:00→22:00)
[2021-02-28] MEDS: NIFEdipine ER 30 MG TAB PO SCH (10:00)
[2021-02-28 10:38] LABS: Potassium 3.6 mmol/L (3.5-5.1)
[2021-02-28 10:44] LABS: Albumin 2.7 g/dL (3.4-5.0); BUN/Creatinine Ratio 15.6; Bilirubin, Total 1.1 mg/dL (0.2-1.0); Total Protein 7.6 g/dL (6.4-8.2)
[2021-02-28 13:00] VITALS: BP 110/70
[2021-02-28 17:00] VITALS: BP 123/88
[2021-02-28] MEDS: ATORVASTATIN 20 MG TAB PO SCH (22:30)
[2021-03-01 05:49] LABS: Albumin 2.6 g/dL (3.4-5.0); Anion Gap 7 (5-15); Blood Urea Nitrogen 27 mg/dL (7-18); Calcium 9.4 mg/dL (8.5-10.1); Carbon Dioxide 34 mmol/L (21-32); Chloride 96 mmol/L (98-107); Glucose 99 mg/dL (74-106); Potassium 3.8 mmol/L (3.5-5.1); Sodium 137 mmol/L (136-145)
[2021-03-01 05:51] LABS: Alanine Aminotransferase 15 U/L (16-61); BUN/Creatinine Ratio 14.3; GFR African American 48 mL/min; GFR Non-African American 39 mL/min
[2021-03-01 06:28] LABS: Alkaline Phosphatase 54 U/L (45-117); Aspartate Aminotransferase 20 U/L (15-37); Total Protein 7.5 g/dL (6.4-8.2)
[2021-03-01] MEDS: FUROSEMIDE 100 MG/10ML VIAL IV SCH ×2 (06:30→18:55)
[2021-03-01] MEDS: InsuLIN REG 1unit/0.01ml Soln (100units/ml) SC SCH ×4 (06:51→22:00)
[2021-03-01] MEDS: ACCU-CHEK COMFORT CURVE STRIP VI SCH ×4 (06:51→22:27)
[2021-03-01 08:00] VITALS: BP_SYST 11; BP_SYST 111; BP_DIAS 72
[2021-03-01] MEDS: cefTRIAXone 1GM/50ML D5W 50 ML IV SCH (09:23)
[2021-03-01] MEDS: NIFEdipine ER 30 MG TAB PO SCH (09:35)
[2021-03-01] MEDS: ENALAPRIL MALEATE 10 MG TAB PO SCH ×2 (09:35→12:11)
[2021-03-01] MEDS: ENOXAPARIN SOD 40 MG/0.4 ML SYRINGE SC SCH (09:35)
[2021-03-01] MEDS: POTASSIUM CHL 20 Meq TABLET PO SCH (09:35)
[2021-03-01] MEDS: CARVEDILOL 3.125 MG TAB PO SCH ×3 (09:36→22:26)
[2021-03-01] MEDS: ASPirin-EC 325mg tab PO SCH (12:12)
[2021-03-01 13:00] VITALS: BP 97/67
[2021-03-01] MEDS: MORPHINE SULFATE INJECTION 2 MG/ML SYRG IV PRN ×2 (16:43→20:45)
[2021-03-01 17:00] VITALS: BP 145/76
[2021-03-01 17:12] VITALS: BP_SYST 111; BP_SYST 97; BP_DIAS 69; BP_DIAS 78
[2021-03-01 22:00] VITALS: BP 135/83
[2021-03-01] MEDS: ATORVASTATIN 20 MG TAB PO SCH (22:26)
[2021-03-02] MEDS: MORPHINE SULFATE INJECTION 2 MG/ML SYRG IV PRN ×4 (00:45→21:40)
[2021-03-02 05:00] VITALS: BP 150/77
[2021-03-02] MEDS: FUROSEMIDE 100 MG/10ML VIAL IV SCH ×2 (06:30→18:14)
[2021-03-02] MEDS: InsuLIN REG 1unit/0.01ml Soln (100units/ml) SC SCH ×4 (07:00→22:00)
[2021-03-02] MEDS: ACCU-CHEK COMFORT CURVE STRIP VI SCH ×4 (07:25→22:28)
[2021-03-02 09:00] VITALS: BP 112/71
[2021-03-02] MEDS: POTASSIUM CHL 20 Meq TABLET PO SCH (09:50)
[2021-03-02] MEDS: ASPirin-EC 325mg tab PO SCH (09:50)
[2021-03-02] MEDS: CARVEDILOL 3.125 MG TAB PO SCH ×2 (09:50→22:00)
[2021-03-02] MEDS: NIFEdipine ER 30 MG TAB PO SCH (09:51)
[2021-03-02] MEDS: ENALAPRIL MALEATE 10 MG TAB PO SCH (09:51)
[2021-03-02] MEDS: ENOXAPARIN SOD 80 MG/0.8ML SYRINGE SC SCH (10:47)
[2021-03-02 13:00] VITALS: BP 142/91
[2021-03-02 17:00] VITALS: BP 135/81
[2021-03-02 22:00] VITALS: BP 145/69
[2021-03-02] MEDS: ATORVASTATIN 20 MG TAB PO SCH (22:00)
[2021-03-03] MEDS: MORPHINE SULFATE INJECTION 2 MG/ML SYRG IV PRN ×4 (01:55→20:21)
[2021-03-03 05:00] VITALS: BP 117/68
[2021-03-03] MEDS: FUROSEMIDE 100 MG/10ML VIAL IV SCH ×2 (06:00→18:14)
[2021-03-03] MEDS: InsuLIN REG 1unit/0.01ml Soln (100units/ml) SC SCH ×4 (06:56→21:59)
[2021-03-03] MEDS: ACCU-CHEK COMFORT CURVE STRIP VI SCH ×4 (06:56→21:59)
[2021-03-03 08:00] VITALS: BP 109/68
[2021-03-03 08:42] VITALS: BP 109/68
[2021-03-03 09:47] LABS: Hematocrit 38.7 % (41.0-53.0); Hemoglobin 12.9 g/dL (13.5-17.5); Mean Corpuscular Hemoglobin 29.2 pg (28.0-32.0); Mean Corpuscular Hgb Conc. 33.3 g/dL (32.0-36.0); Mean Corpuscular Volume 87.5 fL (80.0-100.0); Red Blood Cells 4.42 10^6/uL (4.5-5.90); Red Cell Distribution Width 15.1 % (11.8-14.3)
[2021-03-03 09:52] LABS: Band Neutrophils % (manual) 0; Basophils % (manual) 0 (0.0-2.0); Blast Cells 0; Metamyelocytes % 0; Myelocytes % 0; Promyelocytes % 0; Reactive Lymphocytes 0
[2021-03-03] MEDS: POTASSIUM CHL 20 Meq TABLET PO SCH (09:55)
[2021-03-03] MEDS: ENOXAPARIN SOD 80 MG/0.8ML SYRINGE SC SCH (10:02)
[2021-03-03] MEDS: ASPirin-EC 325mg tab PO SCH (10:02)
[2021-03-03 10:06] LABS: Albumin 2.6 g/dL (3.4-5.0); BUN/Creatinine Ratio 14.9; Bilirubin, Total 1.2 mg/dL (0.2-1.0); Total Protein 7.3 g/dL (6.4-8.2)
[2021-03-03] MEDS: CARVEDILOL 3.125 MG TAB PO SCH ×2 (10:09→20:22)
[2021-03-03] MEDS: NIFEdipine ER 30 MG TAB PO SCH (10:10)
[2021-03-03] MEDS: ENALAPRIL MALEATE 10 MG TAB PO SCH (10:10)
[2021-03-03 11:05] LABS: Eosinophils % (manual) 20 (0-7); Lymphocytes % (manual) 23 (10.0-50.0); Monocytes % (manual) 6 (0-12)
[2021-03-03 13:00] VITALS: BP 119/67
[2021-03-03 16:59] VITALS: BP 109/73
[2021-03-03] MEDS: ATORVASTATIN 20 MG TAB PO SCH (20:22)
[2021-03-03 22:00] VITALS: BP 113/75
[2021-03-04] MEDS: MORPHINE SULFATE INJECTION 2 MG/ML SYRG IV PRN ×5 (00:24→23:43)
[2021-03-04 05:00] VITALS: BP 108/66
[2021-03-04] MEDS: FUROSEMIDE 100 MG/10ML VIAL IV SCH ×2 (05:08→17:41)
[2021-03-04] MEDS: ACCU-CHEK COMFORT CURVE STRIP VI SCH ×4 (06:22→22:12)
[2021-03-04] MEDS: InsuLIN REG 1unit/0.01ml Soln (100units/ml) SC SCH ×4 (06:22→22:00)
[2021-03-04 09:00] VITALS: BP 123/70
[2021-03-04] MEDS: ASPirin-EC 325mg tab PO SCH (10:21)
[2021-03-04] MEDS: POTASSIUM CHL 20 Meq TABLET PO SCH (10:21)
[2021-03-04] MEDS: CARVEDILOL 3.125 MG TAB PO SCH ×2 (10:21→22:00)
[2021-03-04] MEDS: ENOXAPARIN SOD 80 MG/0.8ML SYRINGE SC SCH (10:21)
[2021-03-04] MEDS: NIFEdipine ER 30 MG TAB PO SCH (10:22)
[2021-03-04] MEDS: ENALAPRIL MALEATE 10 MG TAB PO SCH (10:22)
[2021-03-04 13:00] VITALS: BP 106/74
[2021-03-04 17:00] VITALS: BP 111/62
[2021-03-04 22:00] VITALS: BP 96/72
[2021-03-04] MEDS: ATORVASTATIN 20 MG TAB PO SCH (22:11)
[2021-03-04 23:41] VITALS: BP 126/74
[2021-03-05] MEDS: FUROSEMIDE 100 MG/10ML VIAL IV SCH ×2 (05:21→18:46)
[2021-03-05 05:34] VITALS: BP 115/82
[2021-03-05] MEDS: ACCU-CHEK COMFORT CURVE STRIP VI SCH ×4 (06:30→21:48)
[2021-03-05] MEDS: InsuLIN REG 1unit/0.01ml Soln (100units/ml) SC SCH ×4 (06:31→21:51)
[2021-03-05 08:52] VITALS: BP 120/73
[2021-03-05] MEDS: ASPirin-EC 325mg tab PO SCH (09:37)
[2021-03-05] MEDS: POTASSIUM CHL 20 Meq TABLET PO SCH (09:37)
[2021-03-05] MEDS: CARVEDILOL 3.125 MG TAB PO SCH ×2 (09:37→21:31)
[2021-03-05] MEDS: NIFEdipine ER 30 MG TAB PO SCH (09:38)
[2021-03-05] MEDS: ENALAPRIL MALEATE 10 MG TAB PO SCH (09:39)
[2021-03-05] MEDS: ENOXAPARIN SOD 80 MG/0.8ML SYRINGE SC SCH (09:40)
[2021-03-05 13:00] VITALS: BP 99/71
[2021-03-05] MEDS: MORPHINE SULFATE INJECTION 2 MG/ML SYRG IV PRN ×2 (16:43→21:30)
[2021-03-05] MEDS: ATORVASTATIN 20 MG TAB PO SCH (21:30)
[2021-03-05 21:46] VITALS: BP 112/101
[2021-03-06] MEDS: MORPHINE SULFATE INJECTION 2 MG/ML SYRG IV PRN ×5 (02:40→22:24)
[2021-03-06 05:30] VITALS: BP 121/79
[2021-03-06] MEDS: FUROSEMIDE 100 MG/10ML VIAL IV SCH ×2 (06:15→17:54)
[2021-03-06] MEDS: InsuLIN REG 1unit/0.01ml Soln (100units/ml) SC SCH ×4 (06:23→22:00)
[2021-03-06] MEDS: ACCU-CHEK COMFORT CURVE STRIP VI SCH ×4 (06:23→22:23)
[2021-03-06 09:00] VITALS: BP 99/73
[2021-03-06] MEDS: NIFEdipine ER 30 MG TAB PO SCH (09:46)
[2021-03-06] MEDS: ENALAPRIL MALEATE 10 MG TAB PO SCH (09:46)
[2021-03-06] MEDS: CARVEDILOL 3.125 MG TAB PO SCH ×2 (09:46→22:22)
[2021-03-06] MEDS: POTASSIUM CHL 20 Meq TABLET PO SCH (09:53)
[2021-03-06] MEDS: ASPirin-EC 325mg tab PO SCH (09:53)
[2021-03-06] MEDS: ENOXAPARIN SOD 80 MG/0.8ML SYRINGE SC SCH (09:57)
[2021-03-06 10:25] LABS: Hematocrit 40.8 % (41.0-53.0); Hemoglobin 13.1 g/dL (13.5-17.5); Mean Corpuscular Hemoglobin 27.9 pg (28.0-32.0); Mean Corpuscular Hgb Conc. 32.1 g/dL (32.0-36.0); Mean Corpuscular Volume 87.1 fL (80.0-100.0); Red Blood Cells 4.68 10^6/uL (4.5-5.90); Red Cell Distribution Width 15.3 % (11.8-14.3); White Blood Cell 6.3 10^3/uL (4.4-10.8)
[2021-03-06 10:32] LABS: Basophils % (manual) 0 (0.0-2.0); Blast Cells 0; Metamyelocytes % 0; Myelocytes % 0; Promyelocytes % 0; Reactive Lymphocytes 0
[2021-03-06 11:57] LABS: Band Neutrophils % (manual) 4; Eosinophils % (manual) 18 (0-7); Lymphocytes % (manual) 24 (10.0-50.0); Monocytes % (manual) 2 (0-12)
[2021-03-06 11:59] LABS: Potassium 3.8 mmol/L (3.5-5.1)
[2021-03-06 12:12] LABS: Albumin 2.7 g/dL (3.4-5.0); BUN/Creatinine Ratio 13.5; Bilirubin, Total 1.1 mg/dL (0.2-1.0); Calcium 9.5 mg/dL (8.5-10.1); Total Protein 7.6 g/dL (6.4-8.2)
[2021-03-06 12:52] VITALS: BP 112/71
[2021-03-06 17:00] VITALS: BP 105/75
[2021-03-06 22:00] VITALS: BP_SYST 128; BP_SYST 96; BP_DIAS 69; BP_DIAS 79
[2021-03-06] MEDS: ATORVASTATIN 20 MG TAB PO SCH (22:23)
[2021-03-07] MEDS: MORPHINE SULFATE INJECTION 2 MG/ML SYRG IV PRN ×5 (03:37→22:17)
[2021-03-07 05:00] VITALS: BP 107/66
[2021-03-07] MEDS: FUROSEMIDE 100 MG/10ML VIAL IV SCH ×2 (06:38→16:47)
[2021-03-07] MEDS: ACCU-CHEK COMFORT CURVE STRIP VI SCH ×4 (06:38→22:08)
[2021-03-07] MEDS: InsuLIN REG 1unit/0.01ml Soln (100units/ml) SC SCH ×4 (06:38→22:08)
[2021-03-07 09:00] VITALS: BP 111/71
[2021-03-07] MEDS: ASPirin-EC 325mg tab PO SCH (09:46)
[2021-03-07] MEDS: POTASSIUM CHL 20 Meq TABLET PO SCH (09:47)
[2021-03-07] MEDS: ENOXAPARIN SOD 80 MG/0.8ML SYRINGE SC SCH (09:47)
[2021-03-07] MEDS: NIFEdipine ER 30 MG TAB PO SCH (10:00)
[2021-03-07] MEDS: ENALAPRIL MALEATE 10 MG TAB PO SCH (10:00)
[2021-03-07] MEDS: CARVEDILOL 3.125 MG TAB PO SCH ×2 (10:27→22:07)
[2021-03-07 13:00] VITALS: BP 104/49
[2021-03-07] MEDS: DOXYCYCLINE 100 MG TAB/CAP PO SCH ×2 (14:44→22:08)
[2021-03-07 17:00] VITALS: BP 103/69
[2021-03-07 22:00] VITALS: BP 127/70
[2021-03-07] MEDS: ATORVASTATIN 20 MG TAB PO SCH (22:08)
[2021-03-08] MEDS: MORPHINE SULFATE INJECTION 2 MG/ML SYRG IV PRN ×3 (03:45→21:10)
[2021-03-08 05:00] VITALS: BP 121/83
[2021-03-08] MEDS: FUROSEMIDE 100 MG/10ML VIAL IV SCH ×2 (06:02→17:10)
[2021-03-08] MEDS: InsuLIN REG 1unit/0.01ml Soln (100units/ml) SC SCH ×4 (06:03→21:22)
[2021-03-08] MEDS: ACCU-CHEK COMFORT CURVE STRIP VI SCH ×4 (06:03→21:10)
[2021-03-08 08:30] VITALS: BP 111/81
[2021-03-08 08:55] VITALS: BP 111/81
[2021-03-08] MEDS: NIFEdipine ER 30 MG TAB PO SCH (09:54)
[2021-03-08] MEDS: POTASSIUM CHL 20 Meq TABLET PO SCH (09:54)
[2021-03-08] MEDS: ASPirin-EC 325mg tab PO SCH (09:54)
[2021-03-08] MEDS: ENALAPRIL MALEATE 10 MG TAB PO SCH (09:55)
[2021-03-08] MEDS: ENOXAPARIN SOD 80 MG/0.8ML SYRINGE SC SCH (09:55)
[2021-03-08] MEDS: DOXYCYCLINE 100 MG TAB/CAP PO SCH ×2 (09:55→21:11)
[2021-03-08] MEDS: CARVEDILOL 3.125 MG TAB PO SCH ×2 (09:57→21:12)
[2021-03-08 13:00] VITALS: BP 112/75
[2021-03-08 17:10] VITALS: BP 125/76
[2021-03-08] MEDS: ATORVASTATIN 20 MG TAB PO SCH (21:11)
[2021-03-08 22:00] VITALS: BP 118/76
[2021-03-09] MEDS: MORPHINE SULFATE INJECTION 2 MG/ML SYRG IV PRN ×4 (01:33→22:15)
[2021-03-09 05:23] VITALS: BP 107/69
[2021-03-09] MEDS: ACCU-CHEK COMFORT CURVE STRIP VI SCH ×4 (05:58→22:23)
[2021-03-09] MEDS: FUROSEMIDE 100 MG/10ML VIAL IV SCH ×2 (06:05→18:19)
[2021-03-09 06:21] LABS: Hematocrit 36.5 % (41.0-53.0); Hemoglobin 12.2 g/dL (13.5-17.5); Mean Corpuscular Hemoglobin 29.1 pg (28.0-32.0); Mean Corpuscular Hgb Conc. 33.3 g/dL (32.0-36.0); Mean Corpuscular Volume 87.3 fL (80.0-100.0); Red Blood Cells 4.18 10^6/uL (4.5-5.90); Red Cell Distribution Width 15.3 % (11.8-14.3); White Blood Cell 6.6 10^3/uL (4.4-10.8)
[2021-03-09 06:24] LABS: Potassium 3.8 mmol/L (3.5-5.1)
[2021-03-09 06:28] LABS: Basophils % (manual) 0 (0.0-2.0); Blast Cells 0; Metamyelocytes % 0; Myelocytes % 0; Promyelocytes % 0; Reactive Lymphocytes 0
[2021-03-09 06:37] LABS: Albumin 2.8 g/dL (3.4-5.0); Bilirubin, Total 1.5 mg/dL (0.2-1.0); Calcium 9.2 mg/dL (8.5-10.1); Total Protein 7.6 g/dL (6.4-8.2)
[2021-03-09] MEDS: InsuLIN REG 1unit/0.01ml Soln (100units/ml) SC SCH ×4 (06:47→22:37)
[2021-03-09 08:30] VITALS: BP 108/65
[2021-03-09 08:57] LABS: Band Neutrophils % (manual) 2; Eosinophils % (manual) 12 (0-7); Lymphocytes % (manual) 19 (10.0-50.0); Monocytes % (manual) 8 (0-12)
[2021-03-09 09:00] VITALS: BP 109/53
[2021-03-09] MEDS: POTASSIUM CHL 20 Meq TABLET PO SCH (09:23)
[2021-03-09] MEDS: ASPirin-EC 325mg tab PO SCH (09:23)
[2021-03-09] MEDS: ENALAPRIL MALEATE 10 MG TAB PO SCH (09:24)
[2021-03-09] MEDS: DOXYCYCLINE 100 MG TAB/CAP PO SCH ×2 (09:24→22:23)
[2021-03-09] MEDS: CARVEDILOL 3.125 MG TAB PO SCH ×2 (09:25→22:23)
[2021-03-09] MEDS: NIFEdipine ER 30 MG TAB PO SCH (09:25)
[2021-03-09] MEDS: ENOXAPARIN SOD 80 MG/0.8ML SYRINGE SC SCH (09:26)
[2021-03-09 13:00] VITALS: BP 120/68
[2021-03-09] MEDS: PIPERACILLIN-TAZOB 3.375GM 100 ML IV SCH ×2 (13:47→22:59)
[2021-03-09 17:00] VITALS: BP 112/67
[2021-03-09 22:00] VITALS: BP 112/85
[2021-03-09] MEDS: ATORVASTATIN 20 MG TAB PO SCH (22:23)
[2021-03-10] MEDS: MORPHINE SULFATE INJECTION 2 MG/ML SYRG IV PRN ×3 (02:38→20:24)
[2021-03-10 05:00] VITALS: BP 114/91
[2021-03-10] MEDS: PIPERACILLIN-TAZOB 3.375GM 100 ML IV SCH ×3 (06:18→22:02)
[2021-03-10] MEDS: FUROSEMIDE 100 MG/10ML VIAL IV SCH ×2 (06:18→17:42)
[2021-03-10] MEDS: ACCU-CHEK COMFORT CURVE STRIP VI SCH ×4 (06:18→22:02)
[2021-03-10] MEDS: InsuLIN REG 1unit/0.01ml Soln (100units/ml) SC SCH ×4 (06:18→22:00)
[2021-03-10 08:30] VITALS: BP 102/74
[2021-03-10 09:00] VITALS: BP 102/74
[2021-03-10] MEDS: ASPirin-EC 325mg tab PO SCH (10:10)
[2021-03-10] MEDS: POTASSIUM CHL 20 Meq TABLET PO SCH (10:10)
[2021-03-10] MEDS: DOXYCYCLINE 100 MG TAB/CAP PO SCH ×2 (10:10→22:02)
[2021-03-10] MEDS: ENOXAPARIN SOD 80 MG/0.8ML SYRINGE SC SCH (10:11)
[2021-03-10] MEDS: CARVEDILOL 3.125 MG TAB PO SCH ×2 (10:12→22:27)
[2021-03-10] MEDS: NIFEdipine ER 30 MG TAB PO SCH (10:12)
[2021-03-10] MEDS: ENALAPRIL MALEATE 10 MG TAB PO SCH (10:12)
[2021-03-10 13:00] VITALS: BP 111/78
[2021-03-10 17:00] VITALS: BP 117/90
[2021-03-10 22:00] VITALS: BP 128/74
[2021-03-10] MEDS: ATORVASTATIN 20 MG TAB PO SCH (22:02)
[2021-03-11 05:00] VITALS: BP 116/80
[2021-03-11] MEDS: FUROSEMIDE 100 MG/10ML VIAL IV SCH ×2 (05:39→17:54)
[2021-03-11] MEDS: PIPERACILLIN-TAZOB 3.375GM 100 ML IV SCH ×2 (05:39→14:41)
[2021-03-11] MEDS: MORPHINE SULFATE INJECTION 2 MG/ML SYRG IV PRN ×2 (05:40→10:03)
[2021-03-11] MEDS: InsuLIN REG 1unit/0.01ml Soln (100units/ml) SC SCH ×3 (06:06→18:09)
[2021-03-11] MEDS: ACCU-CHEK COMFORT CURVE STRIP VI SCH ×3 (06:06→17:56)
[2021-03-11 09:08] VITALS: BP 96/65
[2021-03-11] MEDS: DOXYCYCLINE 100 MG TAB/CAP PO SCH (09:33)
[2021-03-11] MEDS: ASPirin-EC 325mg tab PO SCH (09:33)
[2021-03-11] MEDS: POTASSIUM CHL 20 Meq TABLET PO SCH (09:34)
[2021-03-11] MEDS: ENOXAPARIN SOD 80 MG/0.8ML SYRINGE SC SCH (09:34)
[2021-03-11] MEDS: ENALAPRIL MALEATE 10 MG TAB PO SCH (09:59)
[2021-03-11] MEDS: CARVEDILOL 3.125 MG TAB PO SCH (09:59)
[2021-03-11] MEDS: NIFEdipine ER 30 MG TAB PO SCH (10:00)
[2021-03-11 12:33] VITALS: BP 103/74
[2021-03-11 15:02] VITALS: BP 103/74
[2021-03-11 17:26] VITALS: BP 104/66
== END 2021-03-11 19:25 | disposition home health service (06) | DRG 190 ==
LOC: ER 02:55 → EDBD 02:55 → TELE 08:22 → TELE-WESTW 15:00
PROVIDERS: ADMIT Internal Medicine; ATTEND Internal Medicine
DX: I21.4 Non-ST elevation (NSTEMI) myocardial infarction (principal); J96.01 Acute respiratory failure with hypoxia; I50.23 Acute on chronic systolic (congestive) heart failure; J91.8 Pleural effusion in other conditions classified elsewhere; J18.9 Pneumonia, unspecified organism; E44.0 Moderate protein-calorie malnutrition; E87.1 Hypo-osmolality and hyponatremia; N17.9 Acute kidney failure, unspecified; E88.09 Other disorders of plasma-protein metabolism, not elsewhere classified; I42.9 Cardiomyopathy, unspecified; I48.91 Unspecified atrial fibrillation; I13.0 Hypertensive heart and chronic kidney disease with heart failure and stage 1 through stage 4 chronic kidney disease, or unspecified chronic kidney disease; N43.3 Hydrocele, unspecified; E11.22 Type 2 diabetes mellitus with diabetic chronic kidney disease; J44.1 Chronic obstructive pulmonary disease with (acute) exacerbation; Z68.43 Body mass index [BMI] 50.0-59.9, adult; G47.30 Sleep apnea, unspecified; N18.32 Chronic kidney disease, stage 3b; E66.01 Morbid (severe) obesity due to excess calories; I45.2 Bifascicular block; R31.29 Other microscopic hematuria; E78.5 Hyperlipidemia, unspecified; Z20.822 Contact with and (suspected) exposure to COVID-19; E78.00 Pure hypercholesterolemia, unspecified; E87.6 Hypokalemia; I25.10 Atherosclerotic heart disease of native coronary artery without angina pectoris; J44.0 Chronic obstructive pulmonary disease with (acute) lower respiratory infection; J98.11 Atelectasis; E11.65 Type 2 diabetes mellitus with hyperglycemia; E11.40 Type 2 diabetes mellitus with diabetic neuropathy, unspecified; D64.9 Anemia, unspecified; I25.5 Ischemic cardiomyopathy; N39.0 Urinary tract infection, site not specified; Z79.01 Long term (current) use of anticoagulants; Z80.0 Family history of malignant neoplasm of digestive organs; Z79.899 Other long term (current) drug therapy; Z82.49 Family history of ischemic heart disease and other diseases of the circulatory system; Z83.3 Family history of diabetes mellitus; Z91.14 Patient's other noncompliance with medication regimen; Z99.81 Dependence on supplemental oxygen; I25.2 Old myocardial infarction
CPT/HCPCS: 36415; 71045; 76775; 76870; 80048; 80053; 80307; 81001; 82570; 82962; 83735; 83880; 84156; 84300; 84484; 85007; 85025; 85027; 85610; 87081; 87426; 93005; 96365; 96375; 97110; 97116; 97530; G0378; J0696; J1815; J2405; J2543

== ENCOUNTER → 2021-04-09 12:33 | Emergency (ER) | payer OTHER ==
[~2021-04-09] VITALS: Ht 175.3 cm; Wt 151.0 kg
[2021-04-09 12:36] VITALS: BP 153/108
== END | disposition home or self-care (01) ==
LOC: ER 12:33
DX: Z46.6 Encounter for fitting and adjustment of urinary device (principal); N39.0 Urinary tract infection, site not specified; J44.9 Chronic obstructive pulmonary disease, unspecified; I48.91 Unspecified atrial fibrillation; I25.2 Old myocardial infarction; E78.5 Hyperlipidemia, unspecified; I25.10 Atherosclerotic heart disease of native coronary artery without angina pectoris; I13.0 Hypertensive heart and chronic kidney disease with heart failure and stage 1 through stage 4 chronic kidney disease, or unspecified chronic kidney disease; E11.22 Type 2 diabetes mellitus with diabetic chronic kidney disease; N18.9 Chronic kidney disease, unspecified; I50.9 Heart failure, unspecified; Z79.82 Long term (current) use of aspirin; Z79.899 Other long term (current) drug therapy

== ENCOUNTER 2021-05-28 20:24 | Inpatient (IN) | payer OTHER ==
[~2021-05-28] VITALS: Ht 175.3 cm; Wt 169.0 kg
[2021-05-28] MEDS ORDERED: FUROSEMIDE 100 MG/10ML VIAL IV ONE (21:30)
[2021-05-28] MEDS ORDERED: METOPROLOL TARTRATE 1MG/1ML-5ML VIAL IV ONE (21:30)
[2021-05-28 22:16] LABS: Albumin 3.3 g/dL (3.4-5.0); Calcium 8.7 mg/dL (8.5-10.1); Magnesium 2.8 mg/dL (1.6-2.6); Potassium 3.7 mmol/L (3.5-5.1)
[2021-05-28 22:20] LABS: Basophils # (auto) 0.1 10 ^3/uL (0-0.2); Basophils % (auto) 1.1 % (0.0-2.0); Eosinophils # (auto) 0.6 10 ^3/uL (0-0.8); Eosinophils % (auto) 8.6 % (0.0-7.0); Hematocrit 36.2 % (41.0-53.0); Hemoglobin 11.7 g/dL (13.5-17.5); Lymphocytes # (auto) 1.8 10 ^3/uL (0.4-5.4); Lymphocytes % (auto) 25.7 % (10.0-50.0); Mean Corpuscular Hemoglobin 29.4 pg (28.0-32.0); Mean Corpuscular Hgb Conc. 32.3 g/dL (32.0-36.0); Mean Corpuscular Volume 91.2 fL (80.0-100.0); Monocytes # (auto) 0.7 10 ^3/uL (0-1.3); Monocytes % (auto) 9.7 % (0.0-12.0); Neutrophils # (auto) 3.9 10 ^3/uL (1.6-8.6); Neutrophils % (auto) 54.9 % (37.0-80.0); Red Blood Cells 3.97 10^6/uL (4.5-5.90); White Blood Cell 7.1 10^3/uL (4.4-10.8)
[2021-05-28 22:26] LABS: BUN/Creatinine Ratio 11.7; Bilirubin, Total 1.4 mg/dL (0.2-1.0); Total Protein 7.4 g/dL (6.4-8.2)
[2021-05-28 22:38] LABS: INR 1.2 (0.9-1.15); Partial Thromboplastin Time 31.4 sec (23.6-33.0)
[2021-05-28] MEDS ORDERED: dilTIAZem 25 MG/5 ML VIAL IV ONE (23:15)
[2021-05-29] MEDS ORDERED: MORPHINE SULFATE 4 MG/ML SYR/VIAL IV PRN (01:00)
[2021-05-29] MEDS ORDERED: HYDROcodone-ACET 5/325MG TAB PO PRN (01:00)
[2021-05-29] MEDS ORDERED: DOCUSATE SOD 100 MG CAP PO PRN (01:00)
[2021-05-29] MEDS ORDERED: MORPHINE SULFATE INJECTION 2 MG/ML SYRG IV PRN ×2 (01:00)
[2021-05-29] MEDS ORDERED: NITROGLYCERIN 0.4 MG SL TAB SL PRN ×2 (01:00)
[2021-05-29] MEDS ORDERED: ONDANSETRON HCL 4 MG/2 ML VIAL IV PRN (01:00)
[2021-05-29 06:00] VITALS: BP 137/97
[2021-05-29] MEDS ORDERED: FURO20TA3 PO (07:36)
[2021-05-29 08:34] VITALS: BP 104/67
[2021-05-29] MEDS: FUROSEMIDE 20 MG/2 ML VIAL IV SCH ×2 (10:12→22:24)
[2021-05-29] MEDS: CARVEDILOL 3.125 MG TAB PO SCH ×2 (10:13→22:24)
[2021-05-29] MEDS: APIXABAN 5 MG TAB PO SCH ×2 (10:13→22:23)
[2021-05-29 12:56] VITALS: BP 108/77
[2021-05-29 17:12] VITALS: BP 161/99
[2021-05-29] MEDS ORDERED: hydrALAZINE HCL 20 MG/ML VL IV PRN (17:15)
[2021-05-29 18:00] VITALS: BP 133/88
[2021-05-29 22:00] VITALS: BP 139/69
[2021-05-29] MEDS: ATORVASTATIN 20 MG TAB PO SCH (22:23)
[2021-05-29] MEDS: TEMAZEPAM 15 MG CAP PO PRN (22:24)
[2021-05-30 05:00] VITALS: BP 119/71
[2021-05-30 08:00] VITALS: BP 131/71
[2021-05-30 09:00] VITALS: BP 131/71
[2021-05-30] MEDS: CARVEDILOL 3.125 MG TAB PO SCH ×2 (10:38→21:19)
[2021-05-30] MEDS: FUROSEMIDE 40 MG/4 ML VIAL IV SCH ×2 (10:39→21:18)
[2021-05-30] MEDS: APIXABAN 5 MG TAB PO SCH ×2 (10:39→21:19)
[2021-05-30 13:00] VITALS: BP 115/63
[2021-05-30 13:22] LABS: Alanine Aminotransferase 14 U/L (16-61); Albumin 3.1 g/dL (3.4-5.0); Anion Gap 9 (5-15); Aspartate Aminotransferase 35 U/L (15-37); BUN/Creatinine Ratio 10.1; Blood Urea Nitrogen 20 mg/dL (7-18); Calcium 8.4 mg/dL (8.5-10.1); Carbon Dioxide 25 mmol/L (21-32); Chloride 106 mmol/L (98-107); GFR African American 45 mL/min; GFR Non-African American 37 mL/min; Glucose 136 mg/dL (74-106); Potassium 4.7 mmol/L (3.5-5.1); Sodium 140 mmol/L (136-145)
[2021-05-30 13:25] LABS: Alkaline Phosphatase 89 U/L (45-117); Bilirubin, Total 1.5 mg/dL (0.2-1.0); Total Protein 7.2 g/dL (6.4-8.2)
[2021-05-30 17:00] VITALS: BP 136/60
[2021-05-30] MEDS: ATORVASTATIN 20 MG TAB PO SCH (21:19)
[2021-05-30] MEDS: TEMAZEPAM 15 MG CAP PO PRN (21:20)
[2021-05-30 21:34] LABS: Basophils # (auto) 0.1 10 ^3/uL (0-0.2); Basophils % (auto) 1.1 % (0.0-2.0); Eosinophils # (auto) 0.8 10 ^3/uL (0-0.8); Eosinophils % (auto) 11.6 % (0.0-7.0); Hematocrit 35.1 % (41.0-53.0); Hemoglobin 11.6 g/dL (13.5-17.5); Lymphocytes # (auto) 1.7 10 ^3/uL (0.4-5.4); Mean Corpuscular Hgb Conc. 32.9 g/dL (32.0-36.0); Mean Corpuscular Volume 91.1 fL (80.0-100.0); Monocytes # (auto) 0.6 10 ^3/uL (0-1.3); Monocytes % (auto) 8.6 % (0.0-12.0); Neutrophils # (auto) 3.8 10 ^3/uL (1.6-8.6); Neutrophils % (auto) 54.7 % (37.0-80.0); Nucleated Red Blood Cells % 0.1 %; Red Blood Cells 3.86 10^6/uL (4.5-5.90); Red Cell Distribution Width 17.9 % (11.8-14.3); White Blood Cell 6.9 10^3/uL (4.4-10.8)
[2021-05-30 22:00] VITALS: BP 124/91
[2021-05-31 05:00] VITALS: BP 119/83
[2021-05-31 09:00] VITALS: BP 121/68
[2021-05-31] MEDS: APIXABAN 5 MG TAB PO SCH (09:52)
[2021-05-31] MEDS: CARVEDILOL 3.125 MG TAB PO SCH (09:52)
[2021-05-31] MEDS: FUROSEMIDE 40 MG/4 ML VIAL IV SCH (09:54)
== END 2021-05-31 11:30 | disposition home or self-care (01) | DRG 194 ==
LOC: ER 20:24 → EDBD 20:24 → TELE 05-29 00:58 → TELE-WESTW 05-29 06:21
PROVIDERS: ADMIT Internal Medicine; ATTEND Internal Medicine
DX: I13.0 Hypertensive heart and chronic kidney disease with heart failure and stage 1 through stage 4 chronic kidney disease, or unspecified chronic kidney disease (principal); E11.22 Type 2 diabetes mellitus with diabetic chronic kidney disease; I48.19 Other persistent atrial fibrillation; I42.8 Other cardiomyopathies; I50.23 Acute on chronic systolic (congestive) heart failure; E11.40 Type 2 diabetes mellitus with diabetic neuropathy, unspecified; J44.9 Chronic obstructive pulmonary disease, unspecified; Z20.822 Contact with and (suspected) exposure to COVID-19; I25.10 Atherosclerotic heart disease of native coronary artery without angina pectoris; E66.01 Morbid (severe) obesity due to excess calories; N18.9 Chronic kidney disease, unspecified; E78.5 Hyperlipidemia, unspecified; I25.2 Old myocardial infarction; Z80.0 Family history of malignant neoplasm of digestive organs; Z91.14 Patient's other noncompliance with medication regimen
CPT/HCPCS: 36415; 71045; 80053; 83735; 83880; 84484; 85025; 85379; 85610; 85730; 87426; 96374; 96375; G0378

== ENCOUNTER 2021-06-03 01:26 | Emergency (ER) | payer OTHER ==
[~2021-06-03] VITALS: Ht 175.3 cm; Wt 158.8 kg
[2021-06-03 01:32] VITALS: BP 134/99
[2021-06-03 05:25] LABS: Basophils # (auto) 0.1 10 ^3/uL (0-0.2); Basophils % (auto) 1.2 % (0.0-2.0); Eosinophils % (auto) 13.8 % (0.0-7.0); Hematocrit 36.2 % (41.0-53.0); Hemoglobin 11.8 g/dL (13.5-17.5); Lymphocytes % (auto) 26.3 % (10.0-50.0); Mean Corpuscular Hgb Conc. 32.6 g/dL (32.0-36.0); Mean Corpuscular Volume 92.1 fL (80.0-100.0); Monocytes # (auto) 0.8 10 ^3/uL (0-1.3); Monocytes % (auto) 10.6 % (0.0-12.0); Neutrophils # (auto) 3.6 10 ^3/uL (1.6-8.6); Neutrophils % (auto) 48.1 % (37.0-80.0); Nucleated Red Blood Cells % 0.1 %; Red Blood Cells 3.94 10^6/uL (4.5-5.90); Red Cell Distribution Width 17.9 % (11.8-14.3); White Blood Cell 7.5 10^3/uL (4.4-10.8)
[2021-06-03 05:41] LABS: Potassium 4.1 mmol/L (3.5-5.1)
[2021-06-03 05:50] LABS: Albumin 3.1 g/dL (3.4-5.0); BUN/Creatinine Ratio 10.9; Bilirubin, Total 1.3 mg/dL (0.2-1.0); Calcium 8.6 mg/dL (8.5-10.1); Total Protein 7.8 g/dL (6.4-8.2)
== END 2021-06-03 11:26 | disposition left against medical advice (07) ==
LOC: EDBD 01:26 → ER 01:33
DX: E11.22 Type 2 diabetes mellitus with diabetic chronic kidney disease (principal); I13.0 Hypertensive heart and chronic kidney disease with heart failure and stage 1 through stage 4 chronic kidney disease, or unspecified chronic kidney disease; N18.9 Chronic kidney disease, unspecified; I50.89 Other heart failure; J44.9 Chronic obstructive pulmonary disease, unspecified; E78.5 Hyperlipidemia, unspecified
CPT/HCPCS: 36415; 71045; 80053; 83880; 84484; 85025; 93005

== ENCOUNTER → 2021-06-03 | Emergency (ER) | payer OTHER ==
[~2021-06-03] MED LIST changes: -ALPR2TAB6 PO; +FURO20TA3 PO; -FURO80TA3 PO; -METF-879 PO
== END | disposition left against medical advice (07) ==
LOC: ER 03:56
DX: R07.9 Chest pain, unspecified (principal); Z53.21 Procedure and treatment not carried out due to patient leaving prior to being seen by health care provider

== ENCOUNTER 2021-06-05 03:28 | Inpatient (IN) | payer OTHER ==
[~2021-06-05] VITALS: Ht 175.3 cm; Wt 162.8 kg
[2021-06-05 07:11] LABS: Basophils # (auto) 0.1 10 ^3/uL (0-0.2); Eosinophils # (auto) 0.8 10 ^3/uL (0-0.8); Eosinophils % (auto) 10.5 % (0.0-7.0); Hematocrit 39.9 % (41.0-53.0); Hemoglobin 12.7 g/dL (13.5-17.5); Lymphocytes # (auto) 1.6 10 ^3/uL (0.4-5.4); Lymphocytes % (auto) 21.8 % (10.0-50.0); Mean Corpuscular Hgb Conc. 31.8 g/dL (32.0-36.0); Mean Corpuscular Volume 91.1 fL (80.0-100.0); Monocytes # (auto) 0.7 10 ^3/uL (0-1.3); Monocytes % (auto) 9.2 % (0.0-12.0); Neutrophils # (auto) 4.3 10 ^3/uL (1.6-8.6); Neutrophils % (auto) 57.5 % (37.0-80.0); Nucleated Red Blood Cells % 0.1 %; Red Blood Cells 4.38 10^6/uL (4.5-5.90); Red Cell Distribution Width 17.5 % (11.8-14.3); White Blood Cell 7.4 10^3/uL (4.4-10.8)
[2021-06-05 07:29] LABS: Potassium 3.8 mmol/L (3.5-5.1)
[2021-06-05 07:41] LABS: INR 1.21 (0.9-1.15)
[2021-06-05] MEDS ORDERED: FUROSEMIDE 40 MG/4 ML VIAL IV ONE (08:30)
[2021-06-05] MEDS ORDERED: SPIRONOLACTONE 25 MG TAB PO ONE (08:30)
[2021-06-05 08:44] LABS: Albumin 3.6 g/dL (3.4-5.0); Calcium 9.4 mg/dL (8.5-10.1)
[2021-06-05 08:49] LABS: BUN/Creatinine Ratio 9.9; Bilirubin, Total 1.7 mg/dL (0.2-1.0); Magnesium 2.2 mg/dL (1.6-2.6); Total Protein 8.5 g/dL (6.4-8.2)
[2021-06-05] MEDS ORDERED: ACETAMINOPHEN 325 MG TAB PO PRN (10:00)
[2021-06-05] MEDS ORDERED: TEMAZEPAM 15 MG CAP PO PRN (10:00)
[2021-06-05] MEDS ORDERED: HYDROcodone-ACET 5/325MG TAB PO PRN (10:00)
[2021-06-05] MEDS ORDERED: MORPHINE SULFATE 4 MG/ML SYR/VIAL IV PRN (10:00)
[2021-06-05] MEDS ORDERED: MORPHINE SULFATE INJECTION 2 MG/ML SYRG IV PRN (10:00)
[2021-06-05] MEDS ORDERED: NITROGLYCERIN 0.4 MG SL TAB SL PRN (10:00)
[2021-06-05] MEDS ORDERED: ONDANSETRON HCL 4 MG/2 ML VIAL IV PRN (10:00)
[2021-06-05] MEDS ORDERED: DOCUSATE SOD 100 MG CAP PO PRN (10:00)
[2021-06-05] MEDS: MULTIPLE VITAMIN TAB PO SCH (11:43)
[2021-06-05] MEDS: ZINC SULFATE 220mg CAP or TAB PO SCH (11:43)
[2021-06-05] MEDS: ENOXAPARIN SOD 40 MG/0.4 ML SYRINGE SC SCH (11:44)
[2021-06-05] MEDS: ASCORBIC ACID 500 MG TAB PO SCH ×2 (11:46→21:57)
[2021-06-05] MEDS: FUROSEMIDE 40 MG/4 ML VIAL IV SCH (18:07)
[2021-06-05 20:00] VITALS: BP 142/115
[2021-06-05 22:10] VITALS: BP 153/102
[2021-06-06 05:00] VITALS: BP 134/101
[2021-06-06] MEDS: FUROSEMIDE 40 MG/4 ML VIAL IV SCH (06:06)
[2021-06-06 07:44] LABS: Albumin 3.2 g/dL (3.4-5.0); Calcium 8.8 mg/dL (8.5-10.1); Potassium 3.4 mmol/L (3.5-5.1)
[2021-06-06 07:50] LABS: Bilirubin, Total 1.4 mg/dL (0.2-1.0); Total Protein 7.3 g/dL (6.4-8.2)
[2021-06-06 07:55] LABS: Basophils # (auto) 0.1 10 ^3/uL (0-0.2); Basophils % (auto) 0.9 % (0.0-2.0); Hematocrit 35.6 % (41.0-53.0); Hemoglobin 11.6 g/dL (13.5-17.5); Mean Corpuscular Hemoglobin 29.6 pg (28.0-32.0); Mean Corpuscular Hgb Conc. 32.6 g/dL (32.0-36.0); Mean Corpuscular Volume 90.9 fL (80.0-100.0); Monocytes # (auto) 0.8 10 ^3/uL (0-1.3); Monocytes % (auto) 10.6 % (0.0-12.0); Neutrophils # (auto) 3.4 10 ^3/uL (1.6-8.6); Neutrophils % (auto) 46.5 % (37.0-80.0); Nucleated Red Blood Cells % 0.1 %; Red Blood Cells 3.91 10^6/uL (4.5-5.90); Red Cell Distribution Width 17.2 % (11.8-14.3); White Blood Cell 7.2 10^3/uL (4.4-10.8)
[2021-06-06 09:00] VITALS: BP 135/75
[2021-06-06] MEDS: ZINC SULFATE 220mg CAP or TAB PO SCH (10:11)
[2021-06-06] MEDS: ENOXAPARIN SOD 40 MG/0.4 ML SYRINGE SC SCH (10:12)
[2021-06-06] MEDS: MULTIPLE VITAMIN TAB PO SCH (10:12)
[2021-06-06] MEDS: ASCORBIC ACID 500 MG TAB PO SCH ×2 (10:12→21:57)
[2021-06-06 13:00] VITALS: BP 134/98
[2021-06-06 17:00] VITALS: BP 141/102
[2021-06-06] MEDS: FUROSEMIDE 100 MG/10ML VIAL IV SCH (17:36)
[2021-06-06] MEDS: ENOXAPARIN SOD 150 MG/1 ML SYRINGE SC SCH (21:58)
[2021-06-06 22:00] VITALS: BP 142/85
[2021-06-07 05:00] VITALS: BP 129/81
[2021-06-07] MEDS: FUROSEMIDE 100 MG/10ML VIAL IV SCH ×2 (05:27→17:23)
[2021-06-07 09:00] VITALS: BP 127/78
[2021-06-07] MEDS ORDERED: OPTISON 3ml Vial for INJ IV ONE (09:41)
[2021-06-07] MEDS: ZINC SULFATE 220mg CAP or TAB PO SCH (09:59)
[2021-06-07] MEDS: POTASSIUM CHL 20 Meq TABLET PO SCH ×2 (10:00→21:34)
[2021-06-07] MEDS: ASCORBIC ACID 500 MG TAB PO SCH ×2 (10:00→21:34)
[2021-06-07] MEDS: MULTIPLE VITAMIN TAB PO SCH (10:00)
[2021-06-07 13:00] VITALS: BP 146/74
[2021-06-07 17:00] VITALS: BP 120/74
[2021-06-07] MEDS: ENOXAPARIN SOD 150 MG/1 ML SYRINGE SC SCH (21:31)
[2021-06-08 05:00] VITALS: BP 125/100
[2021-06-08] MEDS: FUROSEMIDE 100 MG/10ML VIAL IV SCH ×2 (05:15→18:06)
[2021-06-08 09:00] VITALS: BP 116/85
[2021-06-08] MEDS: cefTRIAXone 1GM/50ML D5W 50 ML IV SCH (10:04)
[2021-06-08] MEDS: ZINC SULFATE 220mg CAP or TAB PO SCH (10:04)
[2021-06-08] MEDS: AZITHROMYCIN 500MG/ 250ML 250 ML IV SCH (10:04)
[2021-06-08] MEDS: MULTIPLE VITAMIN TAB PO SCH (10:05)
[2021-06-08] MEDS: POTASSIUM CHL 20 Meq TABLET PO SCH ×2 (10:05→21:53)
[2021-06-08] MEDS: ASCORBIC ACID 500 MG TAB PO SCH ×2 (10:05→21:52)
[2021-06-08] MEDS: PANTOPRAZOLE 40 MG TAB PO SCH (10:05)
[2021-06-08 13:00] VITALS: BP 129/62
[2021-06-08 17:00] VITALS: BP 131/72
[2021-06-08 20:00] VITALS: BP 141/86
[2021-06-08] MEDS: ENOXAPARIN SOD 150 MG/1 ML SYRINGE SC SCH (21:53)
[2021-06-08 22:00] VITALS: BP 141/86
[2021-06-09 05:00] VITALS: BP 148/107
[2021-06-09] MEDS: FUROSEMIDE 100 MG/10ML VIAL IV SCH ×2 (06:25→18:47)
[2021-06-09 09:00] VITALS: BP 121/64
[2021-06-09] MEDS: ASCORBIC ACID 500 MG TAB PO SCH ×2 (10:02→23:01)
[2021-06-09] MEDS: ZINC SULFATE 220mg CAP or TAB PO SCH (10:02)
[2021-06-09] MEDS: MULTIPLE VITAMIN TAB PO SCH (10:02)
[2021-06-09] MEDS: PANTOPRAZOLE 40 MG TAB PO SCH (10:02)
[2021-06-09] MEDS: POTASSIUM CHL 20 Meq TABLET PO SCH ×2 (10:02→23:02)
[2021-06-09 10:28] LABS: Basophils # (auto) 0.1 10 ^3/uL (0-0.2); Basophils % (auto) 1.2 % (0.0-2.0); Eosinophils # (auto) 1.1 10 ^3/uL (0-0.8); Eosinophils % (auto) 13.9 % (0.0-7.0); Hematocrit 34.2 % (41.0-53.0); Lymphocytes # (auto) 1.2 10 ^3/uL (0.4-5.4); Lymphocytes % (auto) 14.7 % (10.0-50.0); Mean Corpuscular Hemoglobin 29.6 pg (28.0-32.0); Mean Corpuscular Hgb Conc. 32.1 g/dL (32.0-36.0); Monocytes # (auto) 0.8 10 ^3/uL (0-1.3); Monocytes % (auto) 9.1 % (0.0-12.0); Neutrophils % (auto) 61.1 % (37.0-80.0); Red Blood Cells 3.71 10^6/uL (4.5-5.90); Red Cell Distribution Width 17.3 % (11.8-14.3); White Blood Cell 8.2 10^3/uL (4.4-10.8)
[2021-06-09 10:51] LABS: INR 1.16 (0.9-1.15); Partial Thromboplastin Time 34.2 sec (23.6-33.0)
[2021-06-09 11:01] LABS: Albumin 3.2 g/dL (3.4-5.0); Calcium 8.4 mg/dL (8.5-10.1); Magnesium 3.1 mg/dL (1.6-2.6); Potassium 4.3 mmol/L (3.5-5.1)
[2021-06-09 11:05] LABS: BUN/Creatinine Ratio 11.2; Bilirubin, Total 1.3 mg/dL (0.2-1.0); Uric Acid 8.1 mg/dL (3.5-7.2)
[2021-06-09] MEDS: AZITHROMYCIN 500MG/ 250ML 250 ML IV SCH (12:26)
[2021-06-09] MEDS: cefTRIAXone 1GM/50ML D5W 50 ML IV SCH (12:26)
[2021-06-09 13:00] VITALS: BP 123/61
[2021-06-09 17:00] VITALS: BP 119/91
[2021-06-09 20:00] VITALS: BP 134/90
[2021-06-09 22:00] VITALS: BP 134/90
[2021-06-09] MEDS: ENOXAPARIN SOD 150 MG/1 ML SYRINGE SC SCH (23:01)
[2021-06-10 05:20] VITALS: BP 132/65
[2021-06-10] MEDS ORDERED: dilTIAZem 25 MG/5 ML VIAL IV ONE (06:00)
[2021-06-10] MEDS: FUROSEMIDE 100 MG/10ML VIAL IV SCH (06:49)
[2021-06-10 09:00] VITALS: BP 113/77
== END 2021-06-10 13:00 | disposition left against medical advice (07) | DRG 194 ==
LOC: ER 03:28 → TELE 09:57 → TELE-WESTW 22:11
PROVIDERS: ADMIT Internal Medicine; ATTEND Internal Medicine
PROC: 0W993ZX Drainage of Right Pleural Cavity, Percutaneous Approach, Diagnostic (ICD-10-PCS; principal; 2021-06-08)
DX: I13.0 Hypertensive heart and chronic kidney disease with heart failure and stage 1 through stage 4 chronic kidney disease, or unspecified chronic kidney disease (principal); J18.9 Pneumonia, unspecified organism; J90 Pleural effusion, not elsewhere classified; I42.8 Other cardiomyopathies; J44.0 Chronic obstructive pulmonary disease with (acute) lower respiratory infection; Z68.43 Body mass index [BMI] 50.0-59.9, adult; E11.22 Type 2 diabetes mellitus with diabetic chronic kidney disease; I50.23 Acute on chronic systolic (congestive) heart failure; J44.9 Chronic obstructive pulmonary disease, unspecified; Z20.822 Contact with and (suspected) exposure to COVID-19; I48.91 Unspecified atrial fibrillation; E66.01 Morbid (severe) obesity due to excess calories; I25.10 Atherosclerotic heart disease of native coronary artery without angina pectoris; N18.9 Chronic kidney disease, unspecified; E78.5 Hyperlipidemia, unspecified; J98.11 Atelectasis; R53.81 Other malaise; Z79.01 Long term (current) use of anticoagulants; Z80.0 Family history of malignant neoplasm of digestive organs; I25.2 Old myocardial infarction; Z82.49 Family history of ischemic heart disease and other diseases of the circulatory system; Z83.3 Family history of diabetes mellitus; Z79.899 Other long term (current) drug therapy
CPT/HCPCS: 32555; 36415; 71045; 71250; 76604; 76942; 80053; 83735; 83880; 83986; 84484; 84550; 85025; 85610; 85730; 87205; 87426; 89051; 93005; 93306; 96372; 96374; 96375; G0378; J0696; Q9956

== ENCOUNTER 2021-06-19 23:01 | Inpatient (IN) | payer OTHER ==
[~2021-06-19] VITALS: Ht 175.3 cm; Wt 164.6 kg
[2021-06-20 05:18] LABS: Urine Bacteria NONE SEEN /hpf (None Seen); Urine Blood Negative /uL (Negative); Urine Hyaline Cast FEW /lpf (0 - 2); Urine Specific Gravity 1.011 (1.001-1.035); Urine WBC 1 /hpf (0 - 3)
[2021-06-20 05:55] LABS: Basophils # (auto) 0.1 10 ^3/uL (0-0.2); Basophils % (auto) 1.1 % (0.0-2.0); Eosinophils # (auto) 1.2 10 ^3/uL (0-0.8); Hematocrit 36.4 % (41.0-53.0); Hemoglobin 11.9 g/dL (13.5-17.5); Lymphocytes # (auto) 1.9 10 ^3/uL (0.4-5.4); Mean Corpuscular Hemoglobin 29.8 pg (28.0-32.0); Mean Corpuscular Hgb Conc. 32.7 g/dL (32.0-36.0); Mean Corpuscular Volume 91.1 fL (80.0-100.0); Monocytes # (auto) 0.9 10 ^3/uL (0-1.3); Monocytes % (auto) 11.3 % (0.0-12.0); Neutrophils # (auto) 3.7 10 ^3/uL (1.6-8.6); Neutrophils % (auto) 47.8 % (37.0-80.0); Nucleated Red Blood Cells % 0.1 %; Red Cell Distribution Width 17.2 % (11.8-14.3); White Blood Cell 7.7 10^3/uL (4.4-10.8)
[2021-06-20 06:14] LABS: INR 1.31 (0.9-1.15); Partial Thromboplastin Time 35.6 sec (23.6-33.0)
[2021-06-20 06:25] LABS: Albumin 3.3 g/dL (3.4-5.0); Calcium 8.7 mg/dL (8.5-10.1); Magnesium 3.5 mg/dL (1.6-2.6); Potassium 4.7 mmol/L (3.5-5.1)
[2021-06-20 06:29] LABS: Eosinophils % (auto) 15.8 % (0.0-7.0)
[2021-06-20 06:32] LABS: BUN/Creatinine Ratio 11.7; Bilirubin, Total 1.4 mg/dL (0.2-1.0); Total Protein 7.8 g/dL (6.4-8.2)
[2021-06-20] MEDS ORDERED: FUROSEMIDE 40 MG/4 ML VIAL IV ONE (11:00)
[2021-06-20] MEDS ORDERED: DOCUSATE SOD 100 MG CAP PO PRN (11:45)
[2021-06-20] MEDS ORDERED: ACETAMINOPHEN 325 MG TAB PO PRN (11:45)
[2021-06-20] MEDS ORDERED: HYDROcodone-ACET 5/325MG TAB PO PRN (11:45)
[2021-06-20] MEDS ORDERED: NITROGLYCERIN 0.4 MG SL TAB SL PRN (11:45)
[2021-06-20] MEDS ORDERED: MORPHINE SULFATE INJECTION 2 MG/ML SYRG IV PRN (11:45)
[2021-06-20] MEDS ORDERED: FUROSEMIDE 40 MG/4 ML VIAL IV SCH (18:00)
[2021-06-20] MEDS: FUROSEMIDE 100 MG/10ML VIAL IV SCH (18:02)
[2021-06-20] MEDS: ASCORBIC ACID 500 MG TAB PO SCH (23:00)
[2021-06-20] MEDS: APIXABAN 5 MG TAB PO SCH (23:00)
[2021-06-21 01:12] VITALS: BP 119/81
[2021-06-21] MEDS ORDERED: FURO80TA3 PO (01:35)
[2021-06-21] MEDS ORDERED: APIX5TAB PO (01:35)
[2021-06-21 05:00] VITALS: BP 106/73
[2021-06-21] MEDS: FUROSEMIDE 100 MG/10ML VIAL IV SCH ×2 (06:25→17:43)
[2021-06-21 08:05] LABS: Hematocrit 34.6 % (41.0-53.0); Hemoglobin 11.4 g/dL (13.5-17.5); Mean Corpuscular Hgb Conc. 32.9 g/dL (32.0-36.0); Mean Corpuscular Volume 91.3 fL (80.0-100.0); Red Blood Cells 3.79 10^6/uL (4.5-5.90); Red Cell Distribution Width 16.4 % (11.8-14.3); White Blood Cell 7.3 10^3/uL (4.4-10.8)
[2021-06-21 08:06] LABS: Band Neutrophils % (manual) 0; Basophils % (manual) 0 (0.0-2.0); Blast Cells 0; Metamyelocytes % 0; Myelocytes % 0; Promyelocytes % 0; Reactive Lymphocytes 0
[2021-06-21] MEDS: ZINC SULFATE 220mg CAP or TAB PO SCH (08:21)
[2021-06-21] MEDS: APIXABAN 5 MG TAB PO SCH (08:22)
[2021-06-21] MEDS: MULTIPLE VITAMIN TAB PO SCH (08:22)
[2021-06-21] MEDS: ASCORBIC ACID 500 MG TAB PO SCH ×2 (08:22→21:11)
[2021-06-21 08:27] LABS: Albumin 3.1 g/dL (3.4-5.0); Calcium 8.6 mg/dL (8.5-10.1); Potassium 4.4 mmol/L (3.5-5.1)
[2021-06-21 08:29] LABS: Eosinophils % (manual) 17 (0-7); Lymphocytes % (manual) 28 (10.0-50.0); Monocytes % (manual) 6 (0-12)
[2021-06-21 08:30] LABS: BUN/Creatinine Ratio 12.9
[2021-06-21 09:00] VITALS: BP 110/70
[2021-06-21] MEDS ORDERED: ENOXAPARIN SOD 40 MG/0.4 ML SYRINGE SC SCH (10:00)
[2021-06-21 12:41] LABS: Urine Bacteria NONE SEEN /hpf (None Seen); Urine Blood Negative /uL (Negative); Urine Specific Gravity 1.006 (1.001-1.035); Urine WBC <1 /hpf (0 - 3)
[2021-06-21 12:56] LABS: Protein, Urine 11.6 mg/dL (0.0-11.9)
[2021-06-21 13:00] VITALS: BP 102/78
[2021-06-21 17:00] VITALS: BP 112/74
[2021-06-21] MEDS: MORPHINE SULFATE 4 MG/ML SYR/VIAL IV PRN (21:08)
[2021-06-21] MEDS: APIXABAN 2.5 MG TAB PO SCH (21:11)
[2021-06-21 22:00] VITALS: BP 129/71
[2021-06-22 05:00] VITALS: BP 135/69
[2021-06-22] MEDS: FUROSEMIDE 100 MG/10ML VIAL IV SCH ×2 (06:45→17:54)
[2021-06-22] MEDS: MULTIPLE VITAMIN TAB PO SCH (08:36)
[2021-06-22] MEDS: APIXABAN 2.5 MG TAB PO SCH ×2 (08:36→21:56)
[2021-06-22] MEDS: ASCORBIC ACID 500 MG TAB PO SCH ×2 (08:36→21:57)
[2021-06-22] MEDS: ZINC SULFATE 220mg CAP or TAB PO SCH (08:36)
[2021-06-22 09:00] VITALS: BP 101/69
[2021-06-22] MEDS: CALCIUM ACETATE 667 MG CAP PO SCH ×2 (11:32→17:54)
[2021-06-22 12:18] VITALS: BP 115/73
[2021-06-22] MEDS ORDERED: AMIODARONE HCL 150 MG in D5W 5% 100 ML IV ONE (16:00)
[2021-06-22] MEDS ORDERED: AMIODARONE 450mg/250ml AE 250 ML IV SCH (16:00)
[2021-06-22 17:07] VITALS: BP 124/95
[2021-06-22] MEDS: ONDANSETRON HCL 4 MG/2 ML VIAL IV PRN (17:54)
[2021-06-22] MEDS: AMIODARONE 450mg/250ml AE 250 ML IV SCH (21:56)
[2021-06-22 22:00] VITALS: BP 129/73
[2021-06-23] MEDS: AMIODARONE 450mg/250ml AE 250 ML IV SCH ×3 (04:01→21:44)
[2021-06-23 05:00] VITALS: BP 123/73
[2021-06-23] MEDS: FUROSEMIDE 100 MG/10ML VIAL IV SCH ×2 (06:24→17:27)
[2021-06-23 08:43] VITALS: BP 156/104
[2021-06-23] MEDS: CALCIUM ACETATE 667 MG CAP PO SCH ×3 (09:17→17:27)
[2021-06-23] MEDS: APIXABAN 2.5 MG TAB PO SCH ×2 (09:18→21:23)
[2021-06-23] MEDS: ZINC SULFATE 220mg CAP or TAB PO SCH (09:18)
[2021-06-23] MEDS: MULTIPLE VITAMIN TAB PO SCH (09:18)
[2021-06-23] MEDS: ASCORBIC ACID 500 MG TAB PO SCH ×2 (09:18→21:23)
[2021-06-23 13:15] VITALS: BP 145/84
[2021-06-23 17:21] VITALS: BP 125/77
[2021-06-23] MEDS: MORPHINE SULFATE 4 MG/ML SYR/VIAL IV PRN (21:46)
[2021-06-23] MEDS: ONDANSETRON HCL 4 MG/2 ML VIAL IV PRN (21:46)
[2021-06-23 22:00] VITALS: BP 114/66
[2021-06-23] MEDS: guaiFENesin-DM 100/10mg/5ml SYR PO PRN (23:31)
[2021-06-24] MEDS: METOPROLOL TARTRATE 1MG/1ML-5ML VIAL IV PRN ×2 (03:58→23:03)
[2021-06-24 05:00] VITALS: BP 112/39
[2021-06-24] MEDS: FUROSEMIDE 100 MG/10ML VIAL IV SCH ×2 (06:34→17:41)
[2021-06-24] MEDS: guaiFENesin-DM 100/10mg/5ml SYR PO PRN ×2 (07:34→15:52)
[2021-06-24] MEDS: CALCIUM ACETATE 667 MG CAP PO SCH ×3 (07:46→17:41)
[2021-06-24] MEDS: MORPHINE SULFATE 4 MG/ML SYR/VIAL IV PRN (07:47)
[2021-06-24] MEDS: ZINC SULFATE 220mg CAP or TAB PO SCH (09:04)
[2021-06-24] MEDS: APIXABAN 2.5 MG TAB PO SCH ×2 (09:05→23:01)
[2021-06-24] MEDS: ASCORBIC ACID 500 MG TAB PO SCH ×2 (09:05→23:01)
[2021-06-24] MEDS: MULTIPLE VITAMIN TAB PO SCH (09:05)
[2021-06-24 09:09] VITALS: BP 130/96
[2021-06-24 09:40] LABS: Basophils # (auto) 0.1 10 ^3/uL (0-0.2); Eosinophils # (auto) 0.7 10 ^3/uL (0-0.8); Eosinophils % (auto) 8.4 % (0.0-7.0); Hematocrit 34.2 % (41.0-53.0); Hemoglobin 11.2 g/dL (13.5-17.5); Lymphocytes # (auto) 1.4 10 ^3/uL (0.4-5.4); Lymphocytes % (auto) 17.9 % (10.0-50.0); Mean Corpuscular Hemoglobin 29.8 pg (28.0-32.0); Mean Corpuscular Hgb Conc. 32.8 g/dL (32.0-36.0); Mean Corpuscular Volume 90.7 fL (80.0-100.0); Monocytes # (auto) 1.2 10 ^3/uL (0-1.3); Monocytes % (auto) 14.6 % (0.0-12.0); Neutrophils # (auto) 4.6 10 ^3/uL (1.6-8.6); Neutrophils % (auto) 58.1 % (37.0-80.0); Red Blood Cells 3.77 10^6/uL (4.5-5.90); Red Cell Distribution Width 16.3 % (11.8-14.3); White Blood Cell 7.9 10^3/uL (4.4-10.8)
[2021-06-24 09:55] LABS: Albumin 3.3 g/dL (3.4-5.0); Calcium 8.7 mg/dL (8.5-10.1); Magnesium 3.5 mg/dL (1.6-2.6); Potassium 4.1 mmol/L (3.5-5.1)
[2021-06-24 09:59] LABS: BUN/Creatinine Ratio 13.1; Bilirubin, Total 1.2 mg/dL (0.2-1.0); Total Protein 7.8 g/dL (6.4-8.2)
[2021-06-24 13:14] VITALS: BP 133/89
[2021-06-24 17:04] VITALS: BP 115/75
[2021-06-24] MEDS: ONDANSETRON HCL 4 MG/2 ML VIAL IV PRN (18:46)
[2021-06-24 22:00] VITALS: BP 111/88
[2021-06-24] MEDS: AMIODARONE HCL 200 MG TAB PO SCH (23:01)
[2021-06-25 04:47] VITALS: BP 131/86
[2021-06-25] MEDS: FUROSEMIDE 100 MG/10ML VIAL IV SCH ×2 (06:09→17:33)
[2021-06-25] MEDS: ONDANSETRON HCL 4 MG/2 ML VIAL IV PRN (06:23)
[2021-06-25] MEDS: guaiFENesin-DM 100/10mg/5ml SYR PO PRN (06:23)
[2021-06-25] MEDS: MORPHINE SULFATE 4 MG/ML SYR/VIAL IV PRN (06:41)
[2021-06-25 09:00] VITALS: BP 135/89
[2021-06-25] MEDS: CALCIUM ACETATE 667 MG CAP PO SCH ×3 (09:11→17:33)
[2021-06-25] MEDS: ASCORBIC ACID 500 MG TAB PO SCH ×2 (09:11→20:48)
[2021-06-25] MEDS: APIXABAN 2.5 MG TAB PO SCH ×2 (09:11→20:48)
[2021-06-25] MEDS: MULTIPLE VITAMIN TAB PO SCH (09:11)
[2021-06-25] MEDS: ZINC SULFATE 220mg CAP or TAB PO SCH (09:11)
[2021-06-25] MEDS: AMIODARONE HCL 200 MG TAB PO SCH ×2 (09:12→20:47)
[2021-06-25 13:00] VITALS: BP 126/93
[2021-06-25 16:57] VITALS: BP 99/67
[2021-06-25] MEDS: METOPROLOL TARTRATE 1MG/1ML-5ML VIAL IV PRN (17:32)
[2021-06-25 21:00] VITALS: BP 114/79
[2021-06-26] MEDS: guaiFENesin-DM 100/10mg/5ml SYR PO PRN (01:11)
[2021-06-26 03:17] VITALS: BP 116/73
[2021-06-26] MEDS: ONDANSETRON HCL 4 MG/2 ML VIAL IV PRN (03:31)
[2021-06-26] MEDS: FUROSEMIDE 100 MG/10ML VIAL IV SCH ×2 (05:56→18:53)
[2021-06-26 09:00] VITALS: BP 122/79
[2021-06-26] MEDS: CALCIUM ACETATE 667 MG CAP PO SCH ×3 (09:17→18:52)
[2021-06-26] MEDS: ZINC SULFATE 220mg CAP or TAB PO SCH (09:17)
[2021-06-26] MEDS: AMIODARONE HCL 200 MG TAB PO SCH ×2 (09:18→21:51)
[2021-06-26] MEDS: APIXABAN 2.5 MG TAB PO SCH ×2 (09:18→21:50)
[2021-06-26] MEDS: ASCORBIC ACID 500 MG TAB PO SCH ×2 (09:19→21:51)
[2021-06-26] MEDS: MULTIPLE VITAMIN TAB PO SCH (09:19)
[2021-06-26 13:00] VITALS: BP 118/92
[2021-06-26 17:00] VITALS: BP 127/83
[2021-06-26 23:09] VITALS: BP 127/93
== END 2021-06-26 23:57 | disposition home or self-care (01) | DRG 133 ==
LOC: EDBD 23:01 → ER 23:01 → TELE 06-20 11:34 → TELE-CENTR 06-20 23:54
PROVIDERS: ADMIT Internal Medicine; ATTEND Internal Medicine
PROC: 05HC33Z Insertion of Infusion Device into Left Basilic Vein, Percutaneous Approach (ICD-10-PCS; principal; 2021-06-21)
PROC: B54NZZA Ultrasonography of Left Upper Extremity Veins, Guidance (ICD-10-PCS; 2021-06-21)
DX: J96.21 Acute and chronic respiratory failure with hypoxia (principal); N17.0 Acute kidney failure with tubular necrosis; I50.23 Acute on chronic systolic (congestive) heart failure; J91.8 Pleural effusion in other conditions classified elsewhere; I42.8 Other cardiomyopathies; D63.1 Anemia in chronic kidney disease; I24.8 Other forms of acute ischemic heart disease; I48.19 Other persistent atrial fibrillation; Z68.43 Body mass index [BMI] 50.0-59.9, adult; I13.0 Hypertensive heart and chronic kidney disease with heart failure and stage 1 through stage 4 chronic kidney disease, or unspecified chronic kidney disease; N18.30 Chronic kidney disease, stage 3 unspecified; E11.40 Type 2 diabetes mellitus with diabetic neuropathy, unspecified; J44.9 Chronic obstructive pulmonary disease, unspecified; I25.10 Atherosclerotic heart disease of native coronary artery without angina pectoris; E11.22 Type 2 diabetes mellitus with diabetic chronic kidney disease; E66.01 Morbid (severe) obesity due to excess calories; E78.5 Hyperlipidemia, unspecified; I45.2 Bifascicular block; I48.91 Unspecified atrial fibrillation; Z80.0 Family history of malignant neoplasm of digestive organs; Z82.49 Family history of ischemic heart disease and other diseases of the circulatory system; Z83.3 Family history of diabetes mellitus; Z91.19 Patient's noncompliance with other medical treatment and regimen; Z99.81 Dependence on supplemental oxygen; Z79.01 Long term (current) use of anticoagulants; I25.2 Old myocardial infarction
CPT/HCPCS: 36415; 71045; 76775; 76870; 80053; 81001; 82306; 82570; 83036; 83735; 83880; 83970; 84100; 84156; 84300; 84484; 85007; 85025; 85027; 85610; 85730; 87081; 87426; 93005; 96365; 96375; G0378; J2405; J7060

== ENCOUNTER 2021-07-10 18:49 | Inpatient (IN) | payer OTHER ==
[~2021-07-10] VITALS: Ht 175.3 cm; Wt 159.5 kg
[~2021-07-10 18:49] MED LIST changes: -APIX2.5T PO; +APIX5TAB PO; -CLON0.2T12 PO; -FURO20TA3 PO; +FURO80TA3 PO; -NIFE1TAB31 PO
[2021-07-10] MEDS ORDERED: FUROSEMIDE 100 MG/10ML VIAL IV ONE (19:15)
[2021-07-10 20:05] LABS: Basophils # (auto) 0.1 10 ^3/uL (0-0.2); Eosinophils # (auto) 0.3 10 ^3/uL (0-0.8); Hematocrit 36.9 % (41.0-53.0); Lymphocytes # (auto) 1.8 10 ^3/uL (0.4-5.4); Lymphocytes % (auto) 26.2 % (10.0-50.0); Mean Corpuscular Hemoglobin 29.4 pg (28.0-32.0); Mean Corpuscular Hgb Conc. 32.7 g/dL (32.0-36.0); Monocytes # (auto) 0.9 10 ^3/uL (0-1.3); Monocytes % (auto) 12.3 % (0.0-12.0); Neutrophils # (auto) 3.9 10 ^3/uL (1.6-8.6); Neutrophils % (auto) 55.5 % (37.0-80.0); Nucleated Red Blood Cells % 0.1 %; Red Cell Distribution Width 16.4 % (11.8-14.3)
[2021-07-10 20:20] LABS: Albumin 3.4 g/dL (3.4-5.0); Potassium 4.3 mmol/L (3.5-5.1)
[2021-07-10 20:26] LABS: BUN/Creatinine Ratio 13.2; Bilirubin, Total 1.8 mg/dL (0.2-1.0); Total Protein 7.7 g/dL (6.4-8.2)
[2021-07-11] MEDS ORDERED: ONDANSETRON HCL 4 MG/2 ML VIAL IV PRN (02:00)
[2021-07-11] MEDS ORDERED: DEXTROSE (50%) 50ML SYRG IV PRN (02:00)
[2021-07-11] MEDS ORDERED: HYDROcodone-ACET 5/325MG TAB PO PRN (02:00)
[2021-07-11] MEDS ORDERED: ACETAMINOPHEN 325 MG TAB PO PRN (02:00)
[2021-07-11] MEDS ORDERED: DOCUSATE SOD 100 MG CAP PO PRN (02:00)
[2021-07-11] MEDS ORDERED: NITROGLYCERIN 0.4 MG SL TAB SL PRN (03:15)
[2021-07-11 03:37] LABS: Basophils # (auto) 0 10 ^3/uL (0-0.2); Eosinophils # (auto) 0 10 ^3/uL (0-0.8); Hemoglobin 13.5 g/dL (13.5-17.5); Mean Corpuscular Hemoglobin 22.3 pg (28.0-32.0); Monocytes # (auto) 0.2 10 ^3/uL (0-1.3); Neutrophils # (auto) 3.3 10 ^3/uL (1.6-8.6); White Blood Cell 4.2 10^3/uL (4.4-10.8)
[2021-07-11 03:41] LABS: Basophils % (auto) 0.3 % (0.0-2.0); Eosinophils % (auto) 0.1 % (0.0-7.0); Hematocrit 42.9 % (41.0-53.0); Lymphocytes # (auto) 0.7 10 ^3/uL (0.4-5.4); Lymphocytes % (auto) 16.1 % (10.0-50.0); Mean Corpuscular Hgb Conc. 31.3 g/dL (32.0-36.0); Mean Corpuscular Volume 71.1 fL (80.0-100.0); Monocytes % (auto) 4.8 % (0.0-12.0); Neutrophils % (auto) 78.7 % (37.0-80.0); Nucleated Red Blood Cells % 0.1 %; Red Blood Cells 6.04 10^6/uL (4.5-5.90); Red Cell Distribution Width 14.1 % (11.8-14.3)
[2021-07-11] MEDS: AZITHROMYCIN 500MG/ 250ML 250 ML IV SCH (03:41)
[2021-07-11 03:42] LABS: Albumin 2.8 g/dL (3.4-5.0); Calcium 8.6 mg/dL (8.5-10.1)
[2021-07-11 03:48] LABS: BUN/Creatinine Ratio 19.4; Bilirubin, Total 0.4 mg/dL (0.2-1.0); Total Protein 6.7 g/dL (6.4-8.2)
[2021-07-11] MEDS: SODIUM CHLOR 0.9% PF (SALINE LOCK) 10ML VIAL/SYR IV SCH ×3 (06:10→21:52)
[2021-07-11] MEDS: ACCU-CHEK COMFORT CURVE STRIP VI SCH ×4 (06:56→22:00)
[2021-07-11] MEDS: InsuLIN REG 1unit/0.01ml Soln (100units/ml) SC SCH ×4 (06:56→22:00)
[2021-07-11] MEDS: ASCORBIC ACID 500 MG TAB PO SCH ×2 (08:55→21:53)
[2021-07-11] MEDS: ASPirin 81 mg TAB PO SCH (08:56)
[2021-07-11] MEDS: MULTIPLE VITAMIN TAB PO SCH (08:56)
[2021-07-11] MEDS: ZINC SULFATE 220mg CAP or TAB PO SCH (08:56)
[2021-07-11] MEDS: CARVEDILOL 3.125 MG TAB PO SCH ×2 (08:57→22:21)
[2021-07-11] MEDS ORDERED: FUROSEMIDE 40 MG/4 ML VIAL IV SCH (10:00)
[2021-07-11] MEDS ORDERED: HEPARIN SODIUM (PORCINE) 5000 UNITS/ML 1ML VIAL SC SCH (10:00)
[2021-07-11 11:49] LABS: Albumin 3.4 g/dL (3.4-5.0); Calcium 9.4 mg/dL (8.5-10.1); Potassium 4.1 mmol/L (3.5-5.1)
[2021-07-11 11:52] LABS: BUN/Creatinine Ratio 14.4; Bilirubin, Total 1.9 mg/dL (0.2-1.0); Total Protein 7.4 g/dL (6.4-8.2)
[2021-07-11] MEDS: FAMOTIDINE (10MG/ML) 2ML VL IV SCH ×2 (11:54→21:52)
[2021-07-11] MEDS: FUROSEMIDE 100 MG/10ML VIAL IV SCH ×2 (11:54→17:48)
[2021-07-11 12:05] LABS: Cholesterol 124 mg/dL (< 200); Triglycerides 59 mg/dL (< 150)
[2021-07-11 12:08] LABS: HDL Cholesterol 28 mg/dL (40-59); LDL Cholesterol 82 mg/dL (< 100)
[2021-07-11] MEDS: MORPHINE SULFATE INJECTION 2 MG/ML SYRG IV PRN (18:18)
[2021-07-11 19:21] LABS: Basophils # (auto) 0.1 10 ^3/uL (0-0.2); Basophils % (auto) 0.9 % (0.0-2.0); Eosinophils # (auto) 0.4 10 ^3/uL (0-0.8); Eosinophils % (auto) 6.2 % (0.0-7.0); Hematocrit 34.4 % (41.0-53.0); Hemoglobin 11.2 g/dL (13.5-17.5); Lymphocytes # (auto) 1.5 10 ^3/uL (0.4-5.4); Lymphocytes % (auto) 23.5 % (10.0-50.0); Mean Corpuscular Hemoglobin 29.4 pg (28.0-32.0); Mean Corpuscular Hgb Conc. 32.6 g/dL (32.0-36.0); Mean Corpuscular Volume 90.1 fL (80.0-100.0); Monocytes # (auto) 0.7 10 ^3/uL (0-1.3); Monocytes % (auto) 11.2 % (0.0-12.0); Neutrophils # (auto) 3.6 10 ^3/uL (1.6-8.6); Neutrophils % (auto) 58.2 % (37.0-80.0); Red Blood Cells 3.82 10^6/uL (4.5-5.90); Red Cell Distribution Width 16.3 % (11.8-14.3); White Blood Cell 6.2 10^3/uL (4.4-10.8)
[2021-07-11] MEDS: ATORVASTATIN 20 MG TAB PO SCH (21:52)
[2021-07-11] MEDS: APIXABAN 5 MG TAB PO SCH (21:53)
[2021-07-11] MEDS ORDERED: APIXABAN 5 MG TAB PO SCH (22:00)
[2021-07-11 22:25] VITALS: BP 122/79
[2021-07-12 05:00] VITALS: BP 109/70
[2021-07-12] MEDS: FUROSEMIDE 100 MG/10ML VIAL IV SCH ×2 (05:27→17:55)
[2021-07-12] MEDS: SODIUM CHLOR 0.9% PF (SALINE LOCK) 10ML VIAL/SYR IV SCH ×3 (05:28→22:15)
[2021-07-12] MEDS: MORPHINE SULFATE INJECTION 2 MG/ML SYRG IV PRN ×3 (05:29→22:15)
[2021-07-12] MEDS: ACCU-CHEK COMFORT CURVE STRIP VI SCH ×4 (06:22→22:15)
[2021-07-12] MEDS: InsuLIN REG 1unit/0.01ml Soln (100units/ml) SC SCH ×4 (06:23→22:00)
[2021-07-12 09:00] VITALS: BP 128/88
[2021-07-12 09:54] LABS: Basophils # (auto) 0.1 10 ^3/uL (0-0.2); Basophils % (auto) 1.2 % (0.0-2.0); Eosinophils # (auto) 0.4 10 ^3/uL (0-0.8); Eosinophils % (auto) 7.5 % (0.0-7.0); Hematocrit 33.1 % (41.0-53.0); Hemoglobin 10.8 g/dL (13.5-17.5); Lymphocytes # (auto) 1.3 10 ^3/uL (0.4-5.4); Lymphocytes % (auto) 22.4 % (10.0-50.0); Mean Corpuscular Hemoglobin 29.7 pg (28.0-32.0); Mean Corpuscular Hgb Conc. 32.8 g/dL (32.0-36.0); Mean Corpuscular Volume 90.4 fL (80.0-100.0); Monocytes # (auto) 0.6 10 ^3/uL (0-1.3); Monocytes % (auto) 9.9 % (0.0-12.0); Neutrophils # (auto) 3.4 10 ^3/uL (1.6-8.6); Nucleated Red Blood Cells % 0.1 %; Red Blood Cells 3.66 10^6/uL (4.5-5.90); Red Cell Distribution Width 16.4 % (11.8-14.3); White Blood Cell 5.7 10^3/uL (4.4-10.8)
[2021-07-12] MEDS: CARVEDILOL 3.125 MG TAB PO SCH ×2 (10:00→21:45)
[2021-07-12] MEDS: ASCORBIC ACID 500 MG TAB PO SCH ×2 (10:01→22:15)
[2021-07-12] MEDS: ASPirin 81 mg TAB PO SCH (10:01)
[2021-07-12] MEDS: AZITHROMYCIN 500MG/ 250ML 250 ML IV SCH (10:01)
[2021-07-12] MEDS: FAMOTIDINE (10MG/ML) 2ML VL IV SCH ×2 (10:01→22:15)
[2021-07-12] MEDS: ZINC SULFATE 220mg CAP or TAB PO SCH (10:01)
[2021-07-12] MEDS: MULTIPLE VITAMIN TAB PO SCH (10:01)
[2021-07-12 10:03] LABS: Calcium 8.7 mg/dL (8.5-10.1); Potassium 3.9 mmol/L (3.5-5.1)
[2021-07-12 10:06] LABS: BUN/Creatinine Ratio 13.5; Bilirubin, Total 1.4 mg/dL (0.2-1.0)
[2021-07-12] MEDS: APIXABAN 5 MG TAB PO SCH ×2 (10:20→22:15)
[2021-07-12 13:00] VITALS: BP 101/67
[2021-07-12 14:19] LABS: BUN/Creatinine Ratio 13.5; Calcium 8.7 mg/dL (8.5-10.1); Potassium 3.8 mmol/L (3.5-5.1)
[2021-07-12 17:00] VITALS: BP 106/72
[2021-07-12 21:30] VITALS: BP 125/80
[2021-07-12] MEDS: DOXYCYCLINE 100 MG TAB/CAP PO SCH (22:15)
[2021-07-12] MEDS: ATORVASTATIN 20 MG TAB PO SCH (22:15)
[2021-07-13 03:48] VITALS: BP 113/83
[2021-07-13] MEDS: metOLazone 5 MG TAB PO SCH ×2 (05:20→16:15)
[2021-07-13] MEDS: FUROSEMIDE 100 MG/10ML VIAL IV SCH ×2 (06:13→16:45)
[2021-07-13] MEDS: SODIUM CHLOR 0.9% PF (SALINE LOCK) 10ML VIAL/SYR IV SCH ×3 (06:13→21:49)
[2021-07-13] MEDS: ACCU-CHEK COMFORT CURVE STRIP VI SCH ×4 (06:14→21:49)
[2021-07-13] MEDS: InsuLIN REG 1unit/0.01ml Soln (100units/ml) SC SCH ×4 (06:22→22:34)
[2021-07-13 09:00] VITALS: BP 124/79
[2021-07-13] MEDS: FAMOTIDINE (10MG/ML) 2ML VL IV SCH (09:47)
[2021-07-13] MEDS: ASPirin 81 mg TAB PO SCH (09:47)
[2021-07-13] MEDS: DOXYCYCLINE 100 MG TAB/CAP PO SCH ×2 (09:47→21:49)
[2021-07-13] MEDS: ASCORBIC ACID 500 MG TAB PO SCH ×2 (09:47→21:49)
[2021-07-13] MEDS: MULTIPLE VITAMIN TAB PO SCH (09:47)
[2021-07-13] MEDS: APIXABAN 5 MG TAB PO SCH ×2 (09:47→21:49)
[2021-07-13] MEDS: ZINC SULFATE 220mg CAP or TAB PO SCH (09:47)
[2021-07-13] MEDS: CARVEDILOL 3.125 MG TAB PO SCH ×2 (10:00→22:00)
[2021-07-13 13:00] VITALS: BP 117/82
[2021-07-13 14:40] LABS: Albumin 3.1 g/dL (3.4-5.0); Calcium 8.6 mg/dL (8.5-10.1); Magnesium 3.2 mg/dL (1.6-2.6); Potassium 3.4 mmol/L (3.5-5.1)
[2021-07-13 14:44] LABS: Bilirubin, Total 1.1 mg/dL (0.2-1.0); Total Protein 7.2 g/dL (6.4-8.2)
[2021-07-13] MEDS: MORPHINE SULFATE INJECTION 2 MG/ML SYRG IV PRN (16:34)
[2021-07-13 17:00] VITALS: BP 127/71
[2021-07-13 20:43] VITALS: BP 128/77
[2021-07-13] MEDS: ATORVASTATIN 20 MG TAB PO SCH (21:49)
[2021-07-14] MEDS: MORPHINE SULFATE INJECTION 2 MG/ML SYRG IV PRN (00:04)
[2021-07-14 05:20] VITALS: BP 132/88
[2021-07-14] MEDS ORDERED: metOLazone 5 MG TAB PO ONE (05:30)
[2021-07-14] MEDS: FUROSEMIDE 100 MG/10ML VIAL IV SCH ×2 (06:11→17:01)
[2021-07-14] MEDS: SODIUM CHLOR 0.9% PF (SALINE LOCK) 10ML VIAL/SYR IV SCH ×3 (06:11→21:36)
[2021-07-14] MEDS: InsuLIN REG 1unit/0.01ml Soln (100units/ml) SC SCH ×4 (06:12→21:49)
[2021-07-14] MEDS: ACCU-CHEK COMFORT CURVE STRIP VI SCH ×4 (06:12→21:36)
[2021-07-14 08:39] LABS: Basophils # (auto) 0 10 ^3/uL (0-0.2); Basophils % (auto) 0.8 % (0.0-2.0); Eosinophils # (auto) 0.6 10 ^3/uL (0-0.8); Hemoglobin 11.2 g/dL (13.5-17.5); Lymphocytes # (auto) 1.5 10 ^3/uL (0.4-5.4); Lymphocytes % (auto) 28.5 % (10.0-50.0); Mean Corpuscular Hemoglobin 29.6 pg (28.0-32.0); Mean Corpuscular Volume 89.7 fL (80.0-100.0); Monocytes # (auto) 0.7 10 ^3/uL (0-1.3); Monocytes % (auto) 12.5 % (0.0-12.0); Neutrophils # (auto) 2.5 10 ^3/uL (1.6-8.6); Neutrophils % (auto) 47.2 % (37.0-80.0); Nucleated Red Blood Cells % 0.1 %; Red Blood Cells 3.79 10^6/uL (4.5-5.90); Red Cell Distribution Width 16.7 % (11.8-14.3); White Blood Cell 5.4 10^3/uL (4.4-10.8)
[2021-07-14 08:54] LABS: Albumin 3.3 g/dL (3.4-5.0); Calcium 9.1 mg/dL (8.5-10.1); Magnesium 2.4 mg/dL (1.6-2.6); Potassium 3.4 mmol/L (3.5-5.1)
[2021-07-14 08:58] LABS: BUN/Creatinine Ratio 13.7; Bilirubin, Total 1.2 mg/dL (0.2-1.0); Total Protein 7.4 g/dL (6.4-8.2)
[2021-07-14 09:00] VITALS: BP 127/86
[2021-07-14] MEDS: ASPirin 81 mg TAB PO SCH (09:23)
[2021-07-14] MEDS: ZINC SULFATE 220mg CAP or TAB PO SCH (09:23)
[2021-07-14] MEDS: ASCORBIC ACID 500 MG TAB PO SCH ×2 (09:24→21:36)
[2021-07-14] MEDS: MULTIPLE VITAMIN TAB PO SCH (09:24)
[2021-07-14] MEDS: DOXYCYCLINE 100 MG TAB/CAP PO SCH ×2 (09:24→21:36)
[2021-07-14] MEDS: APIXABAN 5 MG TAB PO SCH ×2 (09:24→21:36)
[2021-07-14 13:00] VITALS: BP 104/59
[2021-07-14 16:47] VITALS: BP 103/62
[2021-07-14] MEDS ORDERED: metOLazone 5 MG TAB PO SCH (17:00)
[2021-07-14] MEDS: ATORVASTATIN 20 MG TAB PO SCH (21:36)
[2021-07-14 22:00] VITALS: BP 115/76
[2021-07-14] MEDS: CARVEDILOL 3.125 MG TAB PO SCH (22:00)
[2021-07-15] MEDS: MORPHINE SULFATE INJECTION 2 MG/ML SYRG IV PRN (04:20)
[2021-07-15 05:00] VITALS: BP 114/81
[2021-07-15] MEDS ORDERED: metOLazone 5 MG TAB PO ONE (05:30)
[2021-07-15] MEDS: FUROSEMIDE 100 MG/10ML VIAL IV SCH ×2 (06:00→18:00)
[2021-07-15] MEDS: SODIUM CHLOR 0.9% PF (SALINE LOCK) 10ML VIAL/SYR IV SCH ×2 (06:00→14:00)
[2021-07-15] MEDS: ACCU-CHEK COMFORT CURVE STRIP VI SCH ×3 (06:42→17:00)
[2021-07-15] MEDS: InsuLIN REG 1unit/0.01ml Soln (100units/ml) SC SCH ×3 (06:42→17:00)
[2021-07-15 08:30] VITALS: BP 114/81
[2021-07-15 09:00] VITALS: BP 117/62
[2021-07-15] MEDS: CARVEDILOL 3.125 MG TAB PO SCH ×2 (10:00→11:17)
[2021-07-15] MEDS: APIXABAN 5 MG TAB PO SCH (11:16)
[2021-07-15] MEDS: ZINC SULFATE 220mg CAP or TAB PO SCH (11:17)
[2021-07-15] MEDS: DOXYCYCLINE 100 MG TAB/CAP PO SCH (11:17)
[2021-07-15] MEDS: MULTIPLE VITAMIN TAB PO SCH (11:17)
[2021-07-15] MEDS: ASCORBIC ACID 500 MG TAB PO SCH (11:17)
[2021-07-15] MEDS: ASPirin 81 mg TAB PO SCH (11:18)
[2021-07-15 11:33] LABS: BUN/Creatinine Ratio 13.5; Potassium 3.9 mmol/L (3.5-5.1)
[2021-07-15 11:36] LABS: Bilirubin, Total 1.2 mg/dL (0.2-1.0); Total Protein 7.4 g/dL (6.4-8.2)
[2021-07-15 13:00] VITALS: BP 115/58
[2021-07-15] MEDS ORDERED: FURO80TA3 PO (15:45)
[2021-07-15] MEDS ORDERED: APIX5TAB PO (15:45)
[2021-07-15] MEDS ORDERED: CAR3125T PO (15:45)
[2021-07-15] MEDS ORDERED: DOX100T PO (15:45)
[2021-07-15] MEDS ORDERED: ATOR20TA50 PO (15:45)
[2021-07-15] MEDS ORDERED: METO5TAB5 PO (15:45)
[2021-07-15] MEDS ORDERED: ASPI1CHW15 PO (15:45)
[2021-07-15] MEDS ORDERED: NITR0.4S29 SL (15:45)
[2021-07-15 17:00] VITALS: BP 131/88
[2021-07-15 18:31] VITALS: BP 131/88
== END 2021-07-15 22:50 | disposition home or self-care (01) | DRG 194 ==
LOC: EDBD 18:49 → EDUNIT# 18:49 → ER 18:53 → TELE 07-11 03:05 → TELE-CENTR 07-11 21:37
PROVIDERS: ADMIT Nurse Practitioner Family; ATTEND Internal Medicine
PROC: 06HY33Z Insertion of Infusion Device into Lower Vein, Percutaneous Approach (ICD-10-PCS; principal; 2021-07-11)
PROC: 5A09357 Assistance with Respiratory Ventilation, Less than 24 Consecutive Hours, Continuous Positive Airway Pressure (ICD-10-PCS; 2021-07-11)
DX: I13.0 Hypertensive heart and chronic kidney disease with heart failure and stage 1 through stage 4 chronic kidney disease, or unspecified chronic kidney disease (principal); N17.0 Acute kidney failure with tubular necrosis; R65.11 Systemic inflammatory response syndrome (SIRS) of non-infectious origin with acute organ dysfunction; J15.6 Pneumonia due to other Gram-negative bacteria; I24.8 Other forms of acute ischemic heart disease; I42.8 Other cardiomyopathies; I48.91 Unspecified atrial fibrillation; I50.43 Acute on chronic combined systolic (congestive) and diastolic (congestive) heart failure; Z68.43 Body mass index [BMI] 50.0-59.9, adult; G43.909 Migraine, unspecified, not intractable, without status migrainosus; J44.0 Chronic obstructive pulmonary disease with (acute) lower respiratory infection; E11.22 Type 2 diabetes mellitus with diabetic chronic kidney disease; N50.89 Other specified disorders of the male genital organs; I45.2 Bifascicular block; E66.01 Morbid (severe) obesity due to excess calories; E78.5 Hyperlipidemia, unspecified; N18.32 Chronic kidney disease, stage 3b; Z20.822 Contact with and (suspected) exposure to COVID-19; I25.10 Atherosclerotic heart disease of native coronary artery without angina pectoris; I25.2 Old myocardial infarction; Z79.01 Long term (current) use of anticoagulants; Z80.0 Family history of malignant neoplasm of digestive organs; Z82.49 Family history of ischemic heart disease and other diseases of the circulatory system; Z83.3 Family history of diabetes mellitus; Z85.038 Personal history of other malignant neoplasm of large intestine
CPT/HCPCS: 36415; 36600; 71045; 76604; 80048; 80053; 80061; 82805; 82962; 83605; 83735; 83880; 84484; 85025; 87040; 87426; 93005; 94660; 96365; 96375; 99291; G0378; J1815; J3490

== ENCOUNTER 2022-02-17 00:37 | Inpatient (IN) | payer MEDICAID, OTHER ==
[~2022-02-17] VITALS: Ht 175.3 cm; Wt 173.8 kg
[~2022-02-17 00:37] MED LIST changes: +ASPI1CHW15 PO; -ASPITAB34 PO; +CAR3125T PO; +DOX100T PO; -ENAL10TA13 PO; +METO5TAB5 PO; +NITR0.4S29 SL; -POTA-220 PO
[2022-02-17 01:32] LABS: Basophils # (auto) 0.1 10 ^3/uL (0-0.2); Basophils % (auto) 1.5 % (0.0-2.0); Eosinophils # (auto) 0.4 10 ^3/uL (0-0.8); Eosinophils % (auto) 5.9 % (0.0-7.0); Hematocrit 35.2 % (41.0-53.0); Hemoglobin 11.5 g/dL (13.5-17.5); Lymphocytes # (auto) 0.9 10 ^3/uL (0.4-5.4); Mean Corpuscular Hemoglobin 29.5 pg (28.0-32.0); Mean Corpuscular Hgb Conc. 32.7 g/dL (32.0-36.0); Mean Corpuscular Volume 90.3 fL (80.0-100.0); Monocytes # (auto) 0.8 10 ^3/uL (0-1.3); Monocytes % (auto) 12.4 % (0.0-12.0); Neutrophils % (auto) 65.2 % (37.0-80.0); Nucleated Red Blood Cells % 0.1 %; Red Cell Distribution Width 15.6 % (11.8-14.3); White Blood Cell 6.1 10^3/uL (4.4-10.8)
[2022-02-17 01:49] LABS: Albumin 2.9 g/dL (3.4-5.0); BUN/Creatinine Ratio 14.4; Calcium 8.2 mg/dL (8.5-10.1); Potassium 3.8 mmol/L (3.5-5.1)
[2022-02-17 01:51] LABS: Bilirubin, Total 0.7 mg/dL (0.2-1.0); Total Protein 6.7 g/dL (6.4-8.2)
[2022-02-17] MEDS ORDERED: FUROSEMIDE 40 MG/4 ML VIAL IV ONE (04:30)
[2022-02-17] MEDS ORDERED: MORPHINE SULFATE INJ 2 MG/ml SYRG IV PRN (05:00)
[2022-02-17] MEDS ORDERED: ONDANSETRON HCL 4 MG/2 ML VIAL IV PRN (05:00)
[2022-02-17] MEDS ORDERED: ACETAMINOPHEN 325 MG TAB PO PRN (05:00)
[2022-02-17] MEDS ORDERED: DEXTROSE (50%) 50ML SYRG IV PRN (05:00)
[2022-02-17] MEDS ORDERED: NITROGLYCERIN 0.4 MG SL TAB SL PRN (05:00)
[2022-02-17] MEDS ORDERED: TEMAZEPAM 15 MG CAP PO PRN (05:00)
[2022-02-17] MEDS: FUROSEMIDE 20 MG/2 ML VIAL IV SCH ×2 (06:20→18:00)
[2022-02-17] MEDS: InsuLIN REG 1unit/0.01ml Soln (100units/ml) SC SCH ×4 (07:00→22:00)
[2022-02-17] MEDS: ACCU-CHEK COMFORT CURVE STRIP VI SCH ×4 (07:58→22:00)
[2022-02-17] MEDS: PANTOPRAZOLE 40 MG TAB PO SCH ×2 (10:00→10:56)
[2022-02-17] MEDS: CARVEDILOL 3.125 MG TAB PO SCH ×2 (10:55→23:20)
[2022-02-17] MEDS: ASPirin 81 mg TAB PO SCH (10:55)
[2022-02-17] MEDS: APIXABAN 2.5 MG TAB PO SCH ×2 (10:56→23:20)
[2022-02-17 14:25] VITALS: BP 124/92
[2022-02-17 15:11] LABS: Magnesium 2.2 mg/dL (1.6-2.6); Phosphorus 4.2 mg/dL (2.5-4.90)
[2022-02-17 16:53] LABS: Hepatitis C Antibody Negative (Negative)
[2022-02-17 17:26] VITALS: BP 129/87
[2022-02-17 22:00] VITALS: BP 134/85
[2022-02-17] MEDS: ATORVASTATIN 20 MG TAB PO SCH (22:00)
[2022-02-18] VITALS (7 sets, daily range): BP systolic 103–139; BP diastolic 51–71
[2022-02-18 00:54] LABS: Protein, Urine 30.1 mg/dL (0.0-11.9)
[2022-02-18 01:13] LABS: Urine Bacteria NONE SEEN /hpf (None Seen); Urine Blood Negative /uL (Negative); Urine Specific Gravity 1.013 (1.001-1.035); Urine WBC 2 /hpf (0 - 3)
[2022-02-18 06:18] LABS: Basophils # (auto) 0 10 ^3/uL (0-0.2); Basophils % (auto) 0.4 % (0.0-2.0); Eosinophils # (auto) 0.4 10 ^3/uL (0-0.8); Eosinophils % (auto) 6.8 % (0.0-7.0); Hematocrit 33.3 % (41.0-53.0); Hemoglobin 11.1 g/dL (13.5-17.5); Lymphocytes % (auto) 18.1 % (10.0-50.0); Mean Corpuscular Hemoglobin 30.3 pg (28.0-32.0); Mean Corpuscular Hgb Conc. 33.2 g/dL (32.0-36.0); Mean Corpuscular Volume 91.1 fL (80.0-100.0); Monocytes # (auto) 0.8 10 ^3/uL (0-1.3); Monocytes % (auto) 15.4 % (0.0-12.0); Neutrophils # (auto) 3.1 10 ^3/uL (1.6-8.6); Neutrophils % (auto) 59.3 % (37.0-80.0); Nucleated Red Blood Cells % 0.1 %; Red Blood Cells 3.66 10^6/uL (4.5-5.90); Red Cell Distribution Width 15.1 % (11.8-14.3); White Blood Cell 5.3 10^3/uL (4.4-10.8)
[2022-02-18 06:39] LABS: Albumin 2.7 g/dL (3.4-5.0); Calcium 8.4 mg/dL (8.5-10.1); Potassium 3.7 mmol/L (3.5-5.1)
[2022-02-18 06:42] LABS: BUN/Creatinine Ratio 15.4; Bilirubin, Total 0.8 mg/dL (0.2-1.0); Total Protein 6.7 g/dL (6.4-8.2)
[2022-02-18] MEDS: InsuLIN REG 1unit/0.01ml Soln (100units/ml) SC SCH ×4 (06:45→23:02)
[2022-02-18] MEDS: FUROSEMIDE 20 MG/2 ML VIAL IV SCH (06:45)
[2022-02-18] MEDS: ACCU-CHEK COMFORT CURVE STRIP VI SCH ×4 (06:46→23:03)
[2022-02-18] MEDS: ASPirin 81 mg TAB PO SCH (10:00)
[2022-02-18] MEDS: CARVEDILOL 3.125 MG TAB PO SCH ×2 (10:00→23:01)
[2022-02-18] MEDS: PANTOPRAZOLE 40 MG TAB PO SCH (10:00)
[2022-02-18] MEDS: APIXABAN 2.5 MG TAB PO SCH ×2 (10:00→23:02)
[2022-02-18] MEDS ORDERED: FUROSEMIDE 20 MG/2 ML VIAL IV ONE (10:30)
[2022-02-18] MEDS: FUROSEMIDE 40 MG/4 ML VIAL IV SCH (18:46)
[2022-02-18] MEDS: ATORVASTATIN 20 MG TAB PO SCH (23:03)
[2022-02-19 05:00] VITALS: BP 121/67
[2022-02-19] MEDS: FUROSEMIDE 40 MG/4 ML VIAL IV SCH ×2 (05:14→14:16)
[2022-02-19 05:18] LABS: BUN/Creatinine Ratio 15.7; Calcium 8.3 mg/dL (8.5-10.1); Potassium 3.6 mmol/L (3.5-5.1)
[2022-02-19] MEDS: InsuLIN REG 1unit/0.01ml Soln (100units/ml) SC SCH ×2 (06:48→11:30)
[2022-02-19] MEDS: ACCU-CHEK COMFORT CURVE STRIP VI SCH ×2 (06:49→11:30)
[2022-02-19 08:00] VITALS: BP 120/70
[2022-02-19 09:00] VITALS: BP 117/67
[2022-02-19] MEDS: ASPirin 81 mg TAB PO SCH (09:41)
[2022-02-19] MEDS: CARVEDILOL 3.125 MG TAB PO SCH (09:42)
[2022-02-19] MEDS: PANTOPRAZOLE 40 MG TAB PO SCH (09:42)
[2022-02-19] MEDS: APIXABAN 2.5 MG TAB PO SCH (09:42)
[2022-02-19 12:58] VITALS: BP 116/76
[2022-02-19 13:33] VITALS: BP 117/67
== END 2022-02-19 14:00 | disposition home or self-care (01) | DRG 194 ==
LOC: ER 00:37 → EDUNIT# 00:37 → EDBD 00:37 → TELE 04:56 → TELE-EAST 13:40
PROVIDERS: ADMIT Nurse Practitioner; ATTEND Internal Medicine
DX: I13.0 Hypertensive heart and chronic kidney disease with heart failure and stage 1 through stage 4 chronic kidney disease, or unspecified chronic kidney disease (principal); N17.0 Acute kidney failure with tubular necrosis; D63.1 Anemia in chronic kidney disease; Z68.43 Body mass index [BMI] 50.0-59.9, adult; E88.09 Other disorders of plasma-protein metabolism, not elsewhere classified; N18.9 Chronic kidney disease, unspecified; I50.23 Acute on chronic systolic (congestive) heart failure; E11.22 Type 2 diabetes mellitus with diabetic chronic kidney disease; I48.91 Unspecified atrial fibrillation; E11.21 Type 2 diabetes mellitus with diabetic nephropathy; Z20.822 Contact with and (suspected) exposure to COVID-19; E66.01 Morbid (severe) obesity due to excess calories; E78.5 Hyperlipidemia, unspecified; I42.8 Other cardiomyopathies; I48.20 Chronic atrial fibrillation, unspecified; J44.9 Chronic obstructive pulmonary disease, unspecified; Z79.01 Long term (current) use of anticoagulants; Z80.0 Family history of malignant neoplasm of digestive organs; Z82.49 Family history of ischemic heart disease and other diseases of the circulatory system; Z83.3 Family history of diabetes mellitus
CPT/HCPCS: 36415; 71045; 76775; 80048; 80053; 81001; 82306; 82570; 82962; 83735; 83880; 83970; 84100; 84156; 84300; 84484; 85025; 86803; 87340; 93005; 93306; 96374; 97163; G0378; J1815